=== PATIENT | female | born 1935 | race Caucasian/White ===

== ENCOUNTER 2017-08-04 16:42 | Inpatient (IN) | payer OTHER, MEDICARE ==
[~2017-08-04] VITALS: Ht 162.6 cm; Wt 43.6 kg
[~2017-08-04 16:42] MED LIST: HALO5 PO; HALO50P IM
[2017-08-04 17:35] VITALS: BP 127/69; PULSE 100; RESP 24; TEMP 98.5; O2SAT 96
[2017-08-04 18:38] LABS: AUTOMATED NEUTROPHIL # 7.3 TH/MM3 (1.8-7.7); BASOPHIL % 0.5 % (0.0-2.0); EOSINOPHIL # 0.1 TH/MM3 (0-0.4); EOSINOPHIL % 0.9 % (0.0-4.0); HEMOGLOBIN 13.9 GM/DL (11.6-15.3); LYMPH % 15.1 % (9.0-44.0); LYMPHOCYTE # 1.4 TH/MM3 (1.0-4.8); MEAN CELL VOLUME 94.5 FL (80.0-100.0); MEAN CORPUSCULAR HEMOGLOBIN 31.3 PG (27.0-34.0); MEAN CORPUSCULAR HGB CONC 33.1 % (32.0-36.0); MEAN PLATELET VOLUME 8.5 FL (7.0-11.0); MONO % 4.6 % (0.0-8.0); MONOCYTE # 0.4 TH/MM3 (0-0.9); NEUT % 78.9 % (16.0-70.0); PLATELET COUNT 363 TH/MM3 (150-450); RED BLOOD COUNT 4.45 MIL/MM3 (4.00-5.30); RED CELL DISTRIBUTION WIDTH 13.5 % (11.6-17.2); WHITE BLOOD COUNT 9.2 TH/MM3 (4.0-11.0)
--- NOTE | 2017-08-04 18:53 | PD ---
HPI Chief Complaint: Medical Clearance Time Seen by Provider: 17:38 Travel History International Travel<30 days: No Contact w/Intl Traveler<30days: No Traveled to known affect area: No History of Present Illness HPI 82-year-old female presents as ExPARTE. According to the report she refuses to take her medication and refuses to continue therapy. He also states that she is very angry with her members filling of the report., I am assuming with her . She refuses any medical attention and gets worse every day. She does not take care of herself and will often urinate on the floor. She has no other close family members and has had many psychiatric hospitalizations. She also throws various items around in the kitchen is a disaster. On my examination the patient is alert and oriented. She is cachectic appearing and disheveled. She is hard to understand because she has no teeth. She said she does not want to eat anymore or take care of herself because she just wants to give up. She says "he" does not do anything or cook or help. I am assuming she is talking about her . Denies being suicidal. Apparently she has history of schizophrenia. She is supposed be taking medications and will not take them. The patient denies being in any type of pain. Onset unknown. Duration chronic. Symptoms are moderate to severe in severity. No known relieving or aggravating factors. No known allergies. Unknown past medical history. No other modifying factors or associated signs and symptoms. PFSH Past Medical History Arthritis: No Asthma: No Autoimmune Disease: No Blood Disorders: No Bipolar Disorder: Yes Anxiety: Yes Heart Rhythm Problems: No Cancer: No Cardiovascular Problems: No High Cholesterol: Yes Chemotherapy: No Chest Pain: No Congestive Heart Failure: No COPD: No Cerebrovascular Accident: No Diminished Hearing: No GERD: No Glaucoma: No Headaches: No Hepatitis: No Hiatal Hernia: No Hypertension: Yes (TAKES NO HTN MEDS) Implanted Vascular Access Dvce: No Kidney Stones: No Psychiatric: Yes (Schizoaffective Disorder, Bipolar Disorder, Anxiety) Migraines: No Myocardial Infarction: No Radiation Therapy: No Renal Failure: No Schizophrenia: Yes Seizures: No Sickle Cell Disease: No Sleep Apnea: No Thyroid Disease: No Ulcer: No PNEUMOCCOCAL Vaccine (Year): 2 Menopausal: Yes : 4 Para: 3 Miscarriage: 1 : 1 Past Surgical History Abdominal Surgery: No AICD: No Arteriovenous Shunt: No Cardiac Surgery: No Ear Surgery: No Endocrine Surgery: No Eye Surgery: No Genitourinary Surgery: No Gynecologic Surgery: No Insulin Pump: No Joint Replacement: No Neurologic Surgery: No Oral Surgery: No Pacemaker: No Thoracic Surgery: No Other Surgery: No Social History Alcohol Use: No Tobacco Use: Yes (2 PKS/DAY) Substance Use: No Allergies-Medications (Allergen,Severity, Reaction): Coded Allergies: No Known Allergies (Verified , 02/06/15) Reported Meds & Prescriptions Reported Meds & Active Scripts Active Haldol (Decanoate) 50 mg Ampule (Haloperidol Decanoate) 50 Mg/Ml Inj 200 Mg IM ONCE Next dose of Haldol Decanoate due on 03/15/2015. Haldol (Haloperidol) 5 Mg Tab 7.5 Mg PO BID 30 Days Continue taking oral Haldol until instructed otherwise by your outpatient mental health provider. Review of Systems Except as stated in HPI: all other systems reviewed are Neg Physical Exam Narrative GENERAL: Thin, disheveled, cachectic appearing elderly female patient , in no acute distress SKIN: Warm and dry. HEAD: Atraumatic. Normocephalic. EYES: Pupils equal and round. ENT: Mucosa pink and moist. NECK: Supple. Trachea midline. CARDIOVASCULAR: Regular rate and rhythm. No murmur appreciated. RESPIRATORY: No accessory muscle use. Clear to auscultation. Breath sounds equal bilaterally. GASTROINTESTINAL: Abdomen soft, non-tender, nondistended. Hepatic and splenic margins not palpable. Bowel sounds are active 4 quadrants. MUSCULOSKELETAL: No obvious deformities. No clubbing. No cyanosis. No edema. NEUROLOGICAL: Awake and alert. Oriented 3. No obvious cranial nerve deficits. Motor grossly within normal limits. Normal speech. Moves all extremities. 5/5 strength to all extremities. PSYCHIATRIC: No delusional thought processes. No hallucinations. Data Data Last Documented VS Vital Signs Date Time Temp Pulse Resp B/P (MAP) Pulse Ox O2 Delivery O2 Flow Rate FiO2 08/04/17 17:35 98.5 100 24 127/69 (88) 96 Orders Orders Complete Blood Count With Diff (08/04/17 16:54) Comprehensive Metabolic Panel (08/04/17 16:54) Thyroid Stimulating Hormone (08/04/17 16:54) Urinalysis - C+S If Indicated (08/04/17 16:54) Psych Screen (08/04/17 16:54) Drug Screen, Random Urine (08/04/17 16:54) Alcohol (Ethanol) (08/04/17 16:54) Salicylates (Aspirin) (08/04/17 16:54) Tylenol (Acetaminophen) (08/04/17 16:54) Labs Laboratory Tests Test 08/04/17 18:15 White Blood Count 9.2 TH/MM3 Red Blood Count 4.45 MIL/MM3 Hemoglobin 13.9 GM/DL Hematocrit 42.0 % Mean Corpuscular Volume 94.5 FL Mean Corpuscular Hemoglobin 31.3 PG Mean Corpuscular Hemoglobin Concent 33.1 % Red Cell Distribution Width 13.5 % Platelet Count 363 TH/MM3 Mean Platelet Volume 8.5 FL Neutrophils (%) (Auto) 78.9 % Lymphocytes (%) (Auto) 15.1 % Monocytes (%) (Auto) 4.6 % Eosinophils (%) (Auto) 0.9 % Basophils (%) (Auto) 0.5 % Neutrophils # (Auto) 7.3 TH/MM3 Lymphocytes # (Auto) 1.4 TH/MM3 Monocytes # (Auto) 0.4 TH/MM3 Eosinophils # (Auto) 0.1 TH/MM3 Basophils # (Auto) 0.0 TH/MM3 CBC Comment DIFF FINAL Differential Comment MDM Medical Decision Making Medical Screen Exam Complete: Yes Emergency Medical Condition: Yes Medical Record Reviewed: Yes Differential Diagnosis Failure to thrive, schizoaffective disorder, medical clearance for psychiatric evaluation Narrative Course Patient presents under EXPARTE. Physical examination and vital signs are essentially unremarkable. Patient has no medical complaints to report. Psych screen has been ordered. If the laboratory results are unremarkable, the patient will be medically cleared for psychiatric evaluation and disposition. Diagnosis Primary Impression: Medical clearance for psychiatric admission Additional Impression: Cachexia Condition: Stable Georges Chauhankatie Rosa [employer] DRIVER Aug 04, 2017 18:53
[2017-08-04 19:07] LABS: ALBUMIN 3.4 GM/DL (3.4-5.0); ALT (GPT) 33 U/L (10-53); AST (GOT) 45 U/L (15-37); BICARBONATE 25.8 MEQ/L (21.0-32.0); BLOOD UREA NITROGEN 17 MG/DL (7-18); CALCIUM 9.5 MG/DL (8.5-10.1); CHLORIDE 106 MEQ/L (98-107); CREATININE 0.52 MG/DL (0.50-1.00); GLOMERULAR FILTRATION RATE 113 ML/MIN (>89); GLUCOSE,RANDOM 80 MG/DL (74-106); SODIUM (NA) 142 MEQ/L (136-145)
[2017-08-04 19:18] LABS: ACETAMINOPHEN LESS THAN 2.0 MCG/ML (10.0-30.0); ALKALINE PHOSPHATASE 169 U/L (45-117); TOTAL BILIRUBIN ADULT 0.7 MG/DL (0.2-1.0)
--- NOTE | 2017-08-04 22:09 | PD ---
Physical Exam Date Seen by Provider: Aug 04, 2017 Time Seen by Provider: 22:08 Data Data Last Documented VS Vital Signs Date Time Temp Pulse Resp B/P (MAP) Pulse Ox O2 Delivery O2 Flow Rate FiO2 08/04/17 17:35 98.5 100 24 127/69 (88) 96 Orders Orders Complete Blood Count With Diff (08/04/17 16:54) Comprehensive Metabolic Panel (08/04/17 16:54) Thyroid Stimulating Hormone (08/04/17 16:54) Urinalysis - C+S If Indicated (08/04/17 16:54) Psych Screen (08/04/17 16:54) Drug Screen, Random Urine (08/04/17 16:54) Alcohol (Ethanol) (08/04/17 16:54) Salicylates (Aspirin) (08/04/17 16:54) Tylenol (Acetaminophen) (08/04/17 16:54) Olanzapine Inj (Zyprexa Inj) (08/04/17 22:15) Labs Laboratory Tests Test 08/04/17 16:54 08/04/17 18:15 08/05/17 03:20 Blood Urea Nitrogen 17 MG/DL Creatinine 0.52 MG/DL Random Glucose 80 MG/DL Total Protein 7.0 GM/DL Albumin 3.4 GM/DL Calcium Level 9.5 MG/DL Alkaline Phosphatase 169 U/L Aspartate Amino Transf (AST/SGOT) 45 U/L Alanine Aminotransferase (ALT/SGPT) 33 U/L Total Bilirubin 0.7 MG/DL Sodium Level 142 MEQ/L Potassium Level 3.7 MEQ/L Chloride Level 106 MEQ/L Carbon Dioxide Level 25.8 MEQ/L Anion Gap 10 MEQ/L Estimat Glomerular Filtration Rate 113 ML/MIN Thyroid Stimulating Hormone 3rd Gen 2.080 uIU/ML Acetaminophen Level LESS THAN 2.0 MCG/ML Ethyl Alcohol Level LESS THAN 3 MG/DL White Blood Count 9.2 TH/MM3 Red Blood Count 4.45 MIL/MM3 Hemoglobin 13.9 GM/DL Hematocrit 42.0 % Mean Corpuscular Volume 94.5 FL Mean Corpuscular Hemoglobin 31.3 PG Mean Corpuscular Hemoglobin Concent 33.1 % Red Cell Distribution Width 13.5 % Platelet Count 363 TH/MM3 Mean Platelet Volume 8.5 FL Neutrophils (%) (Auto) 78.9 % Lymphocytes (%) (Auto) 15.1 % Monocytes (%) (Auto) 4.6 % Eosinophils (%) (Auto) 0.9 % Basophils (%) (Auto) 0.5 % Neutrophils # (Auto) 7.3 TH/MM3 Lymphocytes # (Auto) 1.4 TH/MM3 Monocytes # (Auto) 0.4 TH/MM3 Eosinophils # (Auto) 0.1 TH/MM3 Basophils # (Auto) 0.0 TH/MM3 CBC Comment DIFF FINAL Differential Comment Salicylates Level LESS THAN 1.7 MG/DL Urine Color LIGHT-YELLOW Urine Turbidity CLEAR Urine pH 7.0 Urine Specific [place] 1.004 Urine Protein NEG mg/dL Urine Glucose (UA) NEG mg/dL Urine Ketones NEG mg/dL Urine Occult Blood NEG Urine Nitrite NEG Urine Bilirubin NEG Urine Urobilinogen LESS THAN 2.0 MG/DL Urine Leukocyte Esterase NEG Urine WBC LESS THAN 1 /hpf Microscopic Urinalysis Comment CULT NOT INDICATED Urine Opiates Screen NEG Urine Barbiturates Screen NEG Urine Amphetamines Screen NEG Urine Benzodiazepines Screen NEG Urine Cocaine Screen NEG Urine Cannabinoids Screen NEG [facility] Medical Record Reviewed: Yes Supervised Visit with MIKAYLA: No Interpretation(s) Laboratory Tests Test 08/04/17 16:54 08/04/17 18:15 Blood Urea Nitrogen 17 MG/DL Creatinine 0.52 MG/DL Random Glucose 80 MG/DL Total Protein 7.0 GM/DL Albumin 3.4 GM/DL Calcium Level 9.5 MG/DL Alkaline Phosphatase 169 U/L Aspartate Amino Transf (AST/SGOT) 45 U/L Alanine Aminotransferase (ALT/SGPT) 33 U/L Total Bilirubin 0.7 MG/DL Sodium Level 142 MEQ/L Potassium Level 3.7 MEQ/L Chloride Level 106 MEQ/L Carbon Dioxide Level 25.8 MEQ/L Anion Gap 10 MEQ/L Estimat Glomerular Filtration Rate 113 ML/MIN Thyroid Stimulating Hormone 3rd Gen 2.080 uIU/ML Acetaminophen Level LESS THAN 2.0 MCG/ML Ethyl Alcohol Level LESS THAN 3 MG/DL White Blood Count 9.2 TH/MM3 Red Blood Count 4.45 MIL/MM3 Hemoglobin 13.9 GM/DL Hematocrit 42.0 % Mean Corpuscular Volume 94.5 FL Mean Corpuscular Hemoglobin 31.3 PG Mean Corpuscular Hemoglobin Concent 33.1 % Red Cell Distribution Width 13.5 % Platelet Count 363 TH/MM3 Mean Platelet Volume 8.5 FL Neutrophils (%) (Auto) 78.9 % Lymphocytes (%) (Auto) 15.1 % Monocytes (%) (Auto) 4.6 % Eosinophils (%) (Auto) 0.9 % Basophils (%) (Auto) 0.5 % Neutrophils # (Auto) 7.3 TH/MM3 Lymphocytes # (Auto) 1.4 TH/MM3 Monocytes # (Auto) 0.4 TH/MM3 Eosinophils # (Auto) 0.1 TH/MM3 Basophils # (Auto) 0.0 TH/MM3 CBC Comment DIFF FINAL Differential Comment Salicylates Level LESS THAN 1.7 MG/DL Differential Diagnosis MDM: High Differential diagnoses: Schizophrenia, schizoaffective disorder, bipolar, anxiety, depression, adjustment reaction, mood disorder NOS, ODD, depressive disorder NOS, dementia, dementia with agitation, psychosis NOS, substance induced mood disorder, DMDD, Asperger syndrome, infection,electrolyte abnormality, malingering. Narrative Course Mental health screening discussed with the patient. Psychiatric screen ordered. The patient here is acutely psychotic and confused. She is singing happy birthday. She has urinated on herself and all over the floor. She is not able to be redirected. The patient is given Zyprexa 10 mg IM. The patient has been medically cleared. This is medical clearance for psychiatric admission Diagnosis Primary Impression: Medical clearance for psychiatric admission Additional Impression: Cachexia Scripts Unable to Obtain Active Prescriptions or Reported Meds Condition: Krystian Toscano Aug 04, 2017 22:09
[2017-08-04] MEDS ORDERED: OLANZapine IM 10 MG VIAL IM ONE (22:15)
[2017-08-05 03:33] LABS: BILIRUBIN, URINE NEG (NEG); BLOOD, URINE NEG (NEG); GLUCOSE,URINE NEG (NEG); KETONE, URINE NEG (NEG); NITRITE,URINE NEG (NEG); URINE COLOR LIGHT-YELLOW (YELLW/STRAW); URINE LEUKOCYTE ESTERASE NEG (NEG)
[2017-08-05 07:36] VITALS: BP 112/60; PULSE 60; RESP 14; O2SAT 100
[2017-08-05] MEDS: NICOTINE 21 MG/24 HR PATCH T-DERMAL SCH (09:15)
[2017-08-05] MEDS ORDERED: LORazepam 2 MG/ML VIAL IM PRN (09:15)
[2017-08-05] MEDS ORDERED: LORazepam 0.5 MG TAB PO PRN (09:15)
[2017-08-05] MEDS ORDERED: MAGNESIUM HYDROXIDE SUSP 30 ML CUP PO PRN (09:15)
[2017-08-05] MEDS ORDERED: ALUMINUM/MAGNESIUM/SIMETH 30 ML CUP PO PRN (09:15)
[2017-08-05 10:19] VITALS: BP 121/56; PULSE 51; RESP 15; O2SAT 100
[2017-08-05 11:15] VITALS: BP 136/64; PULSE 50; RESP 15; TEMP 98.2
--- NOTE | 2017-08-05 13:28 | HHI.HP ---
Provisional Diagnosis Admission Date Aug 05, 2017 at 09:15 [place] I. Schizoaffective disorder, bipolar type [place] II. Deferred Certification of Person's Competence To Provide Express and Informed Consent I have personally examined Edilia Stern , a person being served at [facility] on, Aug 05, 2017 13:13. Express and informed consent means consent voluntarily given in writing, by a competent person, after sufficient explanation and disclosure of the subject matter involved to enable the person to make a knowing and willful decision without any element of force, fraud, deceit, duress, or other form of constraint or coercion. This person is 18 years of age or older, is not now known to be incompetent to consent to treatment with a guardian advocate, and does not have a health care surrogate or proxy currently making medical treatment decisions. I have found this person to be one of the following: [] Competent to provide express and informed consent, as defined above, for voluntary admission to this facility and is competent to provide express and informed consent for treatment. He/she has the consistent capacity to make well reasoned, willful, and knowing decisions concerning his or her medical or mental health treatment. The person fully and consistently understands the purpose of the admission for examination/placement and is fully capable of personally exercising all rights [place] [x] Incompetent to provide express and informed consent to voluntary admission, and this is incompetent to provide express and informed consent to treatment. The person must be transferred to involuntary status and a petition for a guardian advocate filed with the Circuit Court. [] Refusing to provide express and informed consent to voluntary admission but is competent to provide express and informed consent for treatment. The person must be discharged or transferred to involuntary status. Form shall be completed within 24 hours of a person's arrival at the receiving facility and filed in the clinical record of each person: 1. Admitted on a voluntary basis 2. Permitted to provide express and informed consent to his/her own treatment 3. Allowed to transfer from involuntary to voluntary status 4. Prior to permitting a person to consent to his or her own treatment after having been previously found incompetent to consent to treatment. History of Present Illness Capacity: Lacks Capacity HPI The patient is 82-year-old woman, domiciled in [place] with her , mother of 4 kids, with psychiatric history of schizoaffective disorder , multiple psychiatric hospitalizations, she was hospitalized here in [place] in 2015, the documentation was reviewed, who presents as ExPARTE. According to the report she refuses to take her medication and refuses to continue therapy. He also states that she is very angry with her members filling of the report., I am assuming with her . She refuses any medical attention and gets worse every day. She does not take care of herself and will often urinate on the floor. She also throws various items around in the kitchen is a disaster. On my examination the patient is alert and oriented. She is cachectic appearing and disheveled. She is hard to understand because she has no teeth. She said she does not want to eat anymore or take care of herself because she just wants to give up. She says "he" does not do anything or cook or help. I am assuming she is talking about her . In the psychiatric evaluation today the patient is calm, poorly cooperative, selectively mute. The patient reports that she does not know what is the reason she is here. She does say that her is planning to get her out of the house. At times the patient becomes incoherent, very difficult to understand, seems to be kind of disorganized. She denies suicidal enemas ideation, she denies visual and auditory hallucinations. The patient is fully oriented 3. She refuses to talk about her recent psychiatric history, the medication that she is supposed to be taking. I try to get collateral information from her , the phone listed is [phone], nobody is answering. The patient denies the use of alcohol and illegal drugs. Review of Systems Constitutional: DENIES: Diaphoretic episodes, Fatigue, Fever, Weight gain, Weight loss, Chills, Dizziness, Change in appetite, Night Sweats Endocrine: DENIES: Abnorml menstrual pattern, Heat/cold intolerance, Polydipsia , Polyuria, Polyphagia Eyes: DENIES: Blurred vision, Diplopia, Eye inflammation, Eye pain, Vision loss , Photosensitivity, Double Vision Ears, nose, mouth, throat: DENIES: Tinnitus, Hearing loss, Vertigo, Nasal discharge, Oral lesions, Throat pain, Hoarseness, Ear Pain, Running Nose, Epistaxis, Sinus Pain, Toothache, Odynophagia Respiratory: DENIES: Apneas, Cough, Snoring, Wheezing, Hemoptysis, Sputum production, Shortness of breath Cardiovascular: DENIES: Chest pain, Palpitations, Syncope, Dyspnea on Exertion , PND, Lower Extremity Edema, Orthopnea, Claudication Gastrointestinal: DENIES: Abdominal pain, Black stools, Bloody stools, Constipation, Diarrhea, Nausea, Vomiting, Difficulty Swallowing, Anorexia Genitourinary: DENIES: Abnormal vaginal bleeding, Dysmenorrhea, Dyspareunia, Sexual dysfunction, Urinary frequency, Urinary incontinence, Urgency, Hematuria , Dysuria, Nocturia, Vaginal discharge Musculoskeletal: DENIES: Joint pain, Muscle aches, Stiffness, Joint Swelling, Back pain, Neck pain Integumentary: DENIES: Abnormal pigmentation, Pruritus, Rash, Nail changes, Breast masses, Breast skin changes, Nipple discharge Immunologic/allergic: DENIES: Eczema, Urticaria Neurologic: DENIES: Abnormal gait, Headache, Localized weakness, Paresthesias, Seizures, Speech Problems, Tremor, Poor Balance Psychiatric: COMPLAINS OF: Confusion, Delusions, DENIES: Anxiety, Mood changes , Depression, Hallucinations, Agitation, Suicidal Ideation, Homicidal Ideation Substance Abuse History Drugs/Alcohol past 12 months Patient denies substance abuse and alcohol abuse Past Family Social History Coded Allergies: No Known Allergies (Verified Allergy, Unknown, 08/05/17) Unable to Obtain Active Prescriptions or Reported Meds Current Medications Medications (Trade) Dose Ordered Sig/Crystal Route Start Time Stop Time Status Last Admin (Ativan) 1 mg Q6H PRN PO 08/05/17 09:15 (Ativan Inj) 1 mg Q6H PRN IM 08/05/17 09:15 (Ativan) 0.5 mg Q12H PRN PO 08/05/17 09:15 (Ativan Inj) 0.5 mg Q12H PRN IM 08/05/17 09:15 (Tylenol) 650 mg Q4H PRN PO 08/05/17 09:15 (Milk Of Magnesia Liq) 30 ml DAILY PRN PO 08/05/17 09:15 (Mag-Al Plus Susp Liq) 30 ml Q6H PRN PO 08/05/17 09:15 (Habitrol 21 Mg Patch.24 Hr) 1 patch DAILY T-DERMAL 08/05/17 09:15 Miscellaneous Information 1 DAILY T-DERMAL 08/06/17 09:00 Family Psych History No family psychiatric history Social History Patient lives with her in [place], she has 4 kids, she is college educated, retired, supported by social Patient's Strengths (min. 2) Family support Physical Exam Patient is hypoactive, poorly cooperative, but no tremors, no EPS. Vital Signs Vital Signs Date Time Temp Pulse Resp B/P (MAP) Pulse Ox O2 Delivery O2 Flow Rate FiO2 08/05/17 10:29 08/05/17 10:19 51 15 100 Room Air 08/04/17 17:35 98.5 Lab Results Test 08/04/17 16:54 08/04/17 18:15 08/05/17 03:20 Blood Urea Nitrogen 17 MG/DL Creatinine 0.52 MG/DL Random Glucose 80 MG/DL Total Protein 7.0 GM/DL Albumin 3.4 GM/DL Calcium Level 9.5 MG/DL Alkaline Phosphatase 169 U/L Aspartate Amino Transf (AST/SGOT) 45 U/L Alanine Aminotransferase (ALT/SGPT) 33 U/L Total Bilirubin 0.7 MG/DL Sodium Level 142 MEQ/L Potassium Level 3.7 MEQ/L Chloride Level 106 MEQ/L Carbon Dioxide Level 25.8 MEQ/L Anion Gap 10 MEQ/L Estimat Glomerular Filtration Rate 113 ML/MIN Thyroid Stimulating Hormone 3rd Gen 2.080 uIU/ML Acetaminophen Level LESS THAN 2.0 MCG/ML Ethyl Alcohol Level LESS THAN 3 MG/DL White Blood Count 9.2 TH/MM3 Red Blood Count 4.45 MIL/MM3 Hemoglobin 13.9 GM/DL Hematocrit 42.0 % Mean Corpuscular Volume 94.5 FL Mean Corpuscular Hemoglobin 31.3 PG Mean Corpuscular Hemoglobin Concent 33.1 % Red Cell Distribution Width 13.5 % Platelet Count 363 TH/MM3 Mean Platelet Volume 8.5 FL Neutrophils (%) (Auto) 78.9 % Lymphocytes (%) (Auto) 15.1 % Monocytes (%) (Auto) 4.6 % Eosinophils (%) (Auto) 0.9 % Basophils (%) (Auto) 0.5 % Neutrophils # (Auto) 7.3 TH/MM3 Lymphocytes # (Auto) 1.4 TH/MM3 Monocytes # (Auto) 0.4 TH/MM3 Eosinophils # (Auto) 0.1 TH/MM3 Basophils # (Auto) 0.0 TH/MM3 CBC Comment DIFF FINAL Differential Comment Salicylates Level LESS THAN 1.7 MG/DL Urine Color LIGHT-YELLOW Urine Turbidity CLEAR Urine pH 7.0 Urine Specific [place] 1.004 Urine Protein NEG mg/dL Urine Glucose (UA) NEG mg/dL Urine Ketones NEG mg/dL Urine Occult Blood NEG Urine Nitrite NEG Urine Bilirubin NEG Urine Urobilinogen LESS THAN 2.0 MG/DL Urine Leukocyte Esterase NEG Urine WBC LESS THAN 1 /hpf Microscopic Urinalysis Comment CULT NOT INDICATED Urine Opiates Screen NEG Urine Barbiturates Screen NEG Urine Amphetamines Screen NEG Urine Benzodiazepines Screen NEG Urine Cocaine Screen NEG Urine Cannabinoids Screen NEG Mental Status Examination Appearance: Dirty, Disheveled Consciousness: Somnolent, Clouded Motor Activity: Abnormal gait Speech: Incoherent Language: Adequate Fund of Knowledge: Inadequate Attention and Concentration: Adequate Memory: Unremarkable Mood: Angry, Oppositional Affect: Irritable Thought Process & Associations: Loose associations Thought Content: Bizarre thinking, Delusional Hallucination Type: None Delusion Type: None Suicidal Ideation: No Suicidal Plan: No Suicidal Intention: No Homicidal Ideation: No Homicidal Plan: No Homicidal Intention: No Insight: Poor Judgment: Poor Assessment & Plan Problem List: (1) Schizoaffective disorder ICD Codes: F25.9 - Schizoaffective disorder, unspecified Status: Acute Assessment & Plan: On psychiatric evaluation today the patient is selectively mute, poorly cooperative, unable to provide meaningful information to complete the psychiatric assessment. She refused to talk about her recent psychiatric medications and hospitalizations. He does deny suicidal ideation, homicidal ideation, visual and auditory hallucinations. She is fully oriented 3. As per ex Parte documentation the patient has been refusing care at home, self neglecting, no taking her medications, losing weight, not even taking showers. Collateral information could not be contacted at this moment. Given her history of schizoaffective disorder and schizophrenia, multiple psychiatric hospitalizations in the past and history of becoming decompensated without medications, the has an elevated risk of danger to self and potentially be psychotic and she needs psychiatric hospitalization for stabilization and safety. Collateral information is crucial to complete psychiatric assessment. Hold psychotropics at this moment. We will try to reconciliate her medical and psychiatric medications with her . property worker intervention for collateral information, individual and group therapies, to coordinate safe discharge. Will consult psychiatry for second opinion, hospitalist to help with underlying medical conditions. CBC, CMP, urine and toxicology are within the normal limits. Assessment & Plan Estimated LOS: Corey Padron MD Aug 05, 2017 13:28
--- NOTE | 2017-08-05 19:48 | PD.CONS ---
[facility] Consult Requested By Dr. Banks Reason for Consult Medical Management Primary Care Physician Unknown Diagnoses: History of Present Illness This is an 82-year-old female with past medical history of hypertension, elevated ammonia levels, history of a schizoaffective disorder, with multiple prior psychiatric hospitalizations. The patient was presented as an ExPARTE. According to the report the patient refuses to take her medications and refuses to continue therapy. She states that she is very angry with the members of her family providing of the report. As per records the patient does not take care of herself and will often unit on the floor. It is also noted the patient throws Leugn's items around in the kitchen. Denies suicidal ideation, denies visual or auditory hallucinations. Review of Systems As per HPI, other systems reviewed by me and negative. Past Family Social History Allergies: Coded Allergies: No Known Allergies (Verified Allergy, Unknown, 08/05/17) Past Medical History 1. Hypertension. 2. UTI. 3. Nonspecific hyperammonemia. Past Surgical History Unobtainable Reported Medications Reported Meds & Active Scripts Active Active Prescriptions or Reported Medications Unobtainable Active Ordered Medications Current Medications Medications (Trade) Dose Ordered Sig/Crystal Route Start Time Stop Time Status Last Admin (Ativan) 1 mg Q6H PRN PO 08/05/17 09:15 (Ativan Inj) 1 mg Q6H PRN IM 08/05/17 09:15 (Ativan) 0.5 mg Q12H PRN PO 08/05/17 09:15 (Ativan Inj) 0.5 mg Q12H PRN IM 08/05/17 09:15 (Tylenol) 650 mg Q4H PRN PO 08/05/17 09:15 (Milk Of Magnesia Liq) 30 ml DAILY PRN PO 08/05/17 09:15 (Mag-Al Plus Susp Liq) 30 ml Q6H PRN PO 08/05/17 09:15 (Habitrol 21 Mg Patch.24 Hr) 1 patch DAILY T-DERMAL 08/05/17 09:15 Miscellaneous Information 1 DAILY T-DERMAL 08/06/17 09:00 Family History Discussed with the patient and I related to the current presentation. Social History Per PMR, smokes 2 packs a day, patient denies alcohol use. Physical Exam Vital Signs Vital Signs Date Time Temp Pulse Resp B/P (MAP) Pulse Ox O2 Delivery O2 Flow Rate FiO2 08/05/17 11:15 98.2 50 15 136/64 (88) 08/05/17 10:29 08/05/17 10:19 51 15 121/56 (77) 100 Room Air 08/05/17 07:36 60 14 112/60 (77) 100 Room Air Physical Exam GENERAL: This is a well-nourished, well-developed patient, in no apparent distress. SKIN: No rashes, ecchymoses or lesions. Cool and dry. HEAD: Atraumatic. Normocephalic. No temporal or scalp tenderness. EYES: Pupils equal round and reactive. Extraocular motions intact. No scleral icterus. No injection or drainage. ENT: Nose without bleeding, purulent drainage or septal hematoma. Throat without erythema, tonsillar hypertrophy or exudate. Uvula midline. Airway patent. NECK: Trachea midline. No JVD or lymphadenopathy. Supple, nontender, no meningeal signs. CARDIOVASCULAR: Regular rate and rhythm without murmurs, gallops, or rubs. RESPIRATORY: Clear to auscultation. Breath sounds equal bilaterally. No wheezes , rales, or rhonchi. GASTROINTESTINAL: Abdomen soft, non-tender, nondistended. No hepato-splenomegaly , or palpable masses. No guarding. MUSCULOSKELETAL: Extremities without clubbing, cyanosis, or edema. No joint tenderness, effusion, or edema noted. No calf tenderness. Negative Homans sign bilaterally. NEUROLOGICAL: Awake and alert. Cranial nerves II through XII intact. Motor and sensory grossly within normal limits. Five out of 5 muscle strength in all muscle groups. Normal speech. Laboratory Laboratory Tests Test 08/05/17 03:20 Urine Color LIGHT-YELLOW Urine Turbidity CLEAR Urine pH 7.0 Urine Specific [place] 1.004 Urine Protein NEG Urine Glucose (UA) NEG Urine Ketones NEG Urine Occult Blood NEG Urine Nitrite NEG Urine Bilirubin NEG Urine Urobilinogen LESS THAN 2.0 Urine Leukocyte Esterase NEG Urine WBC LESS THAN 1 Microscopic Urinalysis Comment CULT NOT INDICATED Urine Opiates Screen NEG Urine Barbiturates Screen NEG Urine Amphetamines Screen NEG Urine Benzodiazepines Screen NEG Urine Cocaine Screen NEG Urine Cannabinoids Screen NEG Result Diagram: 08/04/17 1710 08/04/17 1875 Assessment and Plan Problem List: (1) Chronic schizoaffective disorder with acute exacerbation ICD Code: F25.8 - Other schizoaffective disorders Status: Acute Plan: Management as per psychiatry. (2) Hyperammonemia ICD Code: E72.20 - Disorder of urea cycle metabolism, unspecified Status: Acute Plan: Recheck ammonia level. (3) Hypertension ICD Code: I10 - Essential (primary) hypertension Status: Chronic Plan: BP stable off antihypertensive medications. Continue to monitor trend. Assessment and Plan DVT prophylaxis: SCDs. Problem Qualifiers (1) Hypertension: Qualified Codes: I10 - Essential (primary) hypertension Mane Crenshaw MD Aug 05, 2017 19:48
[2017-08-06 06:32] VITALS: BP 152/68; PULSE 69; RESP 18; TEMP 97.8; O2SAT 92
[2017-08-06 07:32] LABS: CHOLESTEROL 159 MG/DL (120-200); TRIGLYCERIDES 72 MG/DL (42-150)
[2017-08-06 07:35] LABS: CHOLESTEROL/ HDL RATIO 2.12 RATIO; HDL CHOLESTEROL 74.8 MG/DL (40.0-60.0); LDL CHOLESTEROL 70 MG/DL (0-99)
[2017-08-06 07:43] LABS: BICARBONATE 26.8 MEQ/L (21.0-32.0); BLOOD UREA NITROGEN 21 MG/DL (7-18); CALCIUM 8.8 MG/DL (8.5-10.1); CHLORIDE 109 MEQ/L (98-107); CREATININE 0.54 MG/DL (0.50-1.00); GLOMERULAR FILTRATION RATE 108 ML/MIN (>89); GLUCOSE,RANDOM 69 MG/DL (74-106); SODIUM (NA) 145 MEQ/L (136-145)
[2017-08-06] MEDS: NICOTINE 21 MG/24 HR PATCH T-DERMAL SCH (09:00)
[2017-08-06] MEDS: REMOVE OLD PATCH T-DERMAL SCH (09:00)
[2017-08-06 09:43] VITALS: PULSE 83; O2SAT 97
--- NOTE | 2017-08-06 10:05 | HHI.PR ---
Subjective Remarks This is an 82-year-old female with past medical history of hypertension, elevated ammonia levels, history of a schizoaffective disorder, with multiple prior psychiatric hospitalizations. The patient was presented as an ExPARTE. According to the report the patient refuses to take her medications and refuses to continue therapy. She states that she is very angry with the members of her family providing of the report. As per records the patient does not take care of herself and will often urinate on the floor. It is also noted the patient throws multiple items around in the kitchen. Denies suicidal ideation, denies visual or auditory hallucinations. 08-06 seen in her bed Denies any new complaints Discussed with RN and patient Knew she was at [place] Stated she was at [place] She knew that the year was 2007 Objective Vitals Vital Signs Date Time Temp Pulse Resp B/P (MAP) Pulse Ox O2 Delivery O2 Flow Rate FiO2 08/06/17 09:43 83 97 08/06/17 06:32 97.8 69 18 152/68 (96) 92 08/05/17 11:15 98.2 50 15 136/64 (88) 08/05/17 10:29 08/05/17 10:19 51 15 121/56 (77) 100 Room Air I/O 08/05/17 08/05/17 08/05/17 08/06/17 08/06/17 08/06/17 07:00 15:00 23:00 07:00 15:00 23:00 Intake Total 450 ml 360 ml Balance 450 ml 360 ml Intake Oral 250 ml 360 ml Tube Feeding 200 ml # Voids 1 1 1 Result Diagram: 08/04/17 1815 08/06/17 0602 Other Results Laboratory Tests Test 08/04/17 16:54 08/04/17 18:15 08/05/17 03:20 08/05/17 20:39 Blood Urea Nitrogen 17 MG/DL Creatinine 0.52 MG/DL Random Glucose 80 MG/DL Total Protein 7.0 GM/DL Albumin 3.4 GM/DL Calcium Level 9.5 MG/DL Alkaline Phosphatase 169 U/L Aspartate Amino Transf (AST/SGOT) 45 U/L Alanine Aminotransferase (ALT/SGPT) 33 U/L Total Bilirubin 0.7 MG/DL Sodium Level 142 MEQ/L Potassium Level 3.7 MEQ/L Chloride Level 106 MEQ/L Carbon Dioxide Level 25.8 MEQ/L Anion Gap 10 MEQ/L Estimat Glomerular Filtration Rate 113 ML/MIN Thyroid Stimulating Hormone 3rd Gen 2.080 uIU/ML Acetaminophen Level LESS THAN 2.0 MCG/ML Ethyl Alcohol Level LESS THAN 3 MG/DL White Blood Count 9.2 TH/MM3 Red Blood Count 4.45 MIL/MM3 Hemoglobin 13.9 GM/DL Hematocrit 42.0 % Mean Corpuscular Volume 94.5 FL Mean Corpuscular Hemoglobin 31.3 PG Mean Corpuscular Hemoglobin Concent 33.1 % Red Cell Distribution Width 13.5 % Platelet Count 363 TH/MM3 Mean Platelet Volume 8.5 FL Neutrophils (%) (Auto) 78.9 % Lymphocytes (%) (Auto) 15.1 % Monocytes (%) (Auto) 4.6 % Eosinophils (%) (Auto) 0.9 % Basophils (%) (Auto) 0.5 % Neutrophils # (Auto) 7.3 TH/MM3 Lymphocytes # (Auto) 1.4 TH/MM3 Monocytes # (Auto) 0.4 TH/MM3 Eosinophils # (Auto) 0.1 TH/MM3 Basophils # (Auto) 0.0 TH/MM3 CBC Comment DIFF FINAL Differential Comment Salicylates Level LESS THAN 1.7 MG/DL Urine Color LIGHT-YELLOW Urine Turbidity CLEAR Urine pH 7.0 Urine Specific [place] 1.004 Urine Protein NEG mg/dL Urine Glucose (UA) NEG mg/dL Urine Ketones NEG mg/dL Urine Occult Blood NEG Urine Nitrite NEG Urine Bilirubin NEG Urine Urobilinogen LESS THAN 2.0 MG/DL Urine Leukocyte Esterase NEG Urine WBC LESS THAN 1 /hpf Microscopic Urinalysis Comment CULT NOT INDICATED Urine Opiates Screen NEG Urine Barbiturates Screen NEG Urine Amphetamines Screen NEG Urine Benzodiazepines Screen NEG Urine Cocaine Screen NEG Urine Cannabinoids Screen NEG Ammonia 25 MCMOL/L Test 08/06/17 06:02 Blood Urea Nitrogen 21 MG/DL Creatinine 0.54 MG/DL Random Glucose 69 MG/DL Calcium Level 8.8 MG/DL Sodium Level 145 MEQ/L Potassium Level 3.8 MEQ/L Chloride Level 109 MEQ/L Carbon Dioxide Level 26.8 MEQ/L Anion Gap 9 MEQ/L Estimat Glomerular Filtration Rate 108 ML/MIN Triglycerides Level 72 MG/DL Cholesterol Level 159 MG/DL LDL Cholesterol 70 MG/DL HDL Cholesterol 74.8 MG/DL Cholesterol/HDL Ratio 2.12 RATIO Objective Remarks GENERAL: Awake and alert talkative and cooperative poor dentition SKIN: Warm and dry. HEAD: Atraumatic. Normocephalic. EYES: Pupils equal and round. No scleral icterus. No injection or drainage. ENT: No nasal bleeding or discharge. Mucous membranes pink and moist. Very poor dentition tongue is midline NECK: Trachea midline. No JVD. Supple CARDIOVASCULAR: Regular rate and rhythm. S1-S2 no S3 or S4 no heave or thrill or rub or gallop RESPIRATORY: No accessory muscle use. Clear to auscultation. Breath sounds equal bilaterally. GASTROINTESTINAL: Abdomen soft, non-tender, nondistended. Hepatic and splenic margins not palpable. MUSCULOSKELETAL: Extremities without clubbing, cyanosis, or edema. No obvious deformities. Discolored toes bilaterally on both feet NEUROLOGICAL: Awake and alert. No obvious cranial nerve deficits. Motor grossly within normal limits. 4 out of 5 muscle strength in the arms and legs. Normal speech. PSYCHIATRIC: INAppropriate mood and affect; insight and judgment ABnormal. Procedures NONE Medications and IVs Current Medications Olanzapine (ZyPREXA INJ) 10 mg ONCE ONCE IM Last administered on 08/04/17at 22: 29; Start 08/04/17 at 22:15; Stop 08/04/17 at 22:16; Status DC Lorazepam (Ativan) 1 mg Q6H PRN PO MODERATE TO SEVERE ANXIETY; Start 08/05/17 at 09:15 Lorazepam (Ativan Inj) 1 mg Q6H PRN IM MODERATE TO SEVERE ANXIETY; Start at 09:15 Lorazepam (Ativan) 0.5 mg Q12H PRN PO MODERATE TO SEVERE ANXIETY; Start at 09:15 Lorazepam (Ativan Inj) 0.5 mg Q12H PRN IM MODERATE TO SEVERE ANXIETY; Start at 09:15 Acetaminophen (Tylenol) 650 mg Q4H PRN PO Pain 1-5 or Temp >101F; Start at 09:15 Magnesium Hydroxide (Milk Of Magnesia Liq) 30 ml DAILY PRN PO CONSTIPATION; Start 08/05/17 at 09:15 Al Hydrox/Mg Hydrox/Simethicone (Mag-Al Plus Susp Liq) 30 ml Q6H PRN PO DYSPEPSIA; Start 08/05/17 at 09:15 Nicotine (Habitrol 21 Mg Patch.24 Hr) 1 patch DAILY T-DERMAL ; Start 08/05/17 at 09:15 Miscellaneous Information 1 DAILY T-DERMAL ; Start 08/06/17 at 09:00 A/P Problem List: (1) Chronic schizoaffective disorder with acute exacerbation ICD Code: F25.8 - Other schizoaffective disorders Status: Acute Plan: Management as per psychiatry. (2) Hyperammonemia ICD Code: E72.20 - Disorder of urea cycle metabolism, unspecified Status: Acute Plan: Recheck ammonia level. (3) Hypertension ICD Code: I10 - Essential (primary) hypertension Status: Chronic Plan: BP stable off antihypertensive medications. Continue to monitor trend. Assessment and Plan History of urinary tract infection-- stable at this time--no signs of urinary tract infection Hypertension monitor blood pressure meds as needed with as needed Catapres Recheck ammonia level Discharge Planning Pending psychiatric clearance Problem Qualifiers (1) Hypertension: Qualified Codes: I10 - Essential (primary) hypertension Albert Davis DO Aug 06, 2017 10:05
[2017-08-06 15:43] LABS: HEMOGLOBIN A1C 5.2 % (4.3-6.0)
--- NOTE | 2017-08-06 17:22 | PD.PSY.CON ---
Provisional Diagnosis Admission Date Aug 05, 2017 at 09:15 [place] I. Schizoaffective disorder, bipolar type [place] II. Deferred History of Present Illness Service Psychiatry Consult Requested By Dr. Banks Reason for Consult Second opinion Primary Care Physician Unknown HPI The patient is 82-year-old woman, domiciled in [place] with her , mother of 4 kids, with psychiatric history of schizoaffective disorder , multiple psychiatric hospitalizations, she was hospitalized here in [place] in 2014, the documentation was reviewed, who presents as ExPARTE. According to the report she refuses to take her medication and refuses to continue therapy. He also states that she is very angry with her members filling of the report., I am assuming with her . She refuses any medical attention and gets worse every day. She does not take care of herself and will often urinate on the floor. She also throws various items around in the kitchen is a disaster. On my examination the patient is alert and oriented. She is cachectic appearing and disheveled. She is hard to understand because she has no teeth. She said she does not want to eat anymore or take care of herself because she just wants to give up. She says "he" does not do anything or cook or help. I am assuming she is talking about her . In the psychiatric evaluation today the patient is calm, poorly cooperative, selectively mute. The patient reports that she does not know what is the reason she is here. She does say that her is planning to get her out of the house. At times the patient becomes incoherent, very difficult to understand, seems to be kind of disorganized. She denies suicidal enemas ideation, she denies visual and auditory hallucinations. The patient is fully oriented 3. She refuses to talk about her recent psychiatric history, the medication that she is supposed to be taking. I try to get collateral information from her , the phone listed is [phone], nobody is answering. The patient denies the use of alcohol and illegal drugs. 08/06/17 -second opinion Patient is an 82-year-old woman, domiciled with , has 4 children, with a past psychiatric history of schizoaffective disorder, previous psychiatric admissions, last seen here at [place] in 2014 was brought into the ED under ex parte due to concerns of self neglect,, refusing medical attention, decreased nutritional intake and wanting to give up which patient was admitted to the patient psychiatry for further evaluation and management. Patient was noted to be superficially cooperative, and become irritable during interview as well. Patient is alert and oriented 3. Patient states that she had recent arguments with her stated that he did not get along and reported that she did not want to return back to him. When attempted to pass further upon her living situation, regarding her self neglect she was unable to provide adequate comprehensible responses noted to be tangential, loosely associations and disorganized during interview. When speaking about prior treatment and medications patient at it mother was refusing any medication stating that she does not need them. Collateral information obtained by a counselor/therapist from had reported that patient had not been eating well, had been refusing medications for years and states that he does not want her to return back to the home. When asked about how they were obtaining her meals patient's was noted to be circumstantial and not providing adequate information as to their current living situation which concerns of their ability to care for themselves is concerning. Treatment he will contact DCFS to investigate into the ability of patient and to care for themselves. Past Family Social History Coded Allergies: No Known Allergies (Verified Allergy, Unknown, 08/05/17) Unable to Obtain Active Prescriptions or Reported Meds Current Medications Medications (Trade) Dose Ordered Sig/Crystal Route Start Time Stop Time Status Last Admin (Ativan) 1 mg Q6H PRN PO 08/05/17 09:15 (Ativan Inj) 1 mg Q6H PRN IM 08/05/17 09:15 (Ativan) 0.5 mg Q12H PRN PO 08/05/17 09:15 (Ativan Inj) 0.5 mg Q12H PRN IM 08/05/17 09:15 (Tylenol) 650 mg Q4H PRN PO 08/05/17 09:15 (Milk Of Magnesia Liq) 30 ml DAILY PRN PO 08/05/17 09:15 (Mag-Al Plus Susp Liq) 30 ml Q6H PRN PO 08/05/17 09:15 (Habitrol 21 Mg Patch.24 Hr) 1 patch DAILY T-DERMAL 08/05/17 09:15 Miscellaneous Information 1 DAILY T-DERMAL 4/27/18 09:00 Patient's Strengths (min. 2) Family support Physical Exam Vital Signs Vital Signs Date Time Temp Pulse Resp B/P (MAP) Pulse Ox O2 Delivery O2 Flow Rate FiO2 08/06/17 09:43 83 97 08/06/17 06:32 97.8 18 08/05/17 10:19 Room Air I/O 08/06/17 08/06/17 08/07/17 08:00 16:00 00:00 Intake Total 720 ml Balance 720 ml Lab Results Test 08/05/17 20:39 08/06/17 06:02 Ammonia 25 MCMOL/L Blood Urea Nitrogen 21 MG/DL Creatinine 0.54 MG/DL Random Glucose 69 MG/DL Calcium Level 8.8 MG/DL Sodium Level 145 MEQ/L Potassium Level 3.8 MEQ/L Chloride Level 109 MEQ/L Carbon Dioxide Level 26.8 MEQ/L Anion Gap 9 MEQ/L Estimat Glomerular Filtration Rate 108 ML/MIN Hemoglobin A1c 5.2 % Triglycerides Level 72 MG/DL Cholesterol Level 159 MG/DL LDL Cholesterol 70 MG/DL HDL Cholesterol 74.8 MG/DL Cholesterol/HDL Ratio 2.12 RATIO Mental Status Examination Appearance: Dirty, Disheveled Consciousness: Somnolent, Clouded Motor Activity: Abnormal gait Speech: Incoherent Language: Adequate Fund of Knowledge: Inadequate Attention and Concentration: Adequate Memory: Unremarkable Mood: Angry, Oppositional Affect: Irritable Thought Process & Associations: Loose associations, Disorganized Thought Content: Bizarre thinking, Delusional Hallucination Type: None Delusion Type: None Suicidal Ideation: No Suicidal Plan: No Suicidal Intention: No Homicidal Ideation: No Homicidal Plan: No Homicidal Intention: No Insight: Poor Judgment: Poor Assessment & Plan Problem List: (1) Schizoaffective disorder ICD Codes: F25.9 - Schizoaffective disorder, unspecified Status: Acute Assessment & Plan I have seen and examined this patient, reviewed the documentation, discussed personally with Dr. Banks, and I agree and concur with his assessment and plan. Consult appreciated. Patient this time refusing to comply with medications and will require healthcare surrogate and guardian advocate for consent to treatment. Patient at this time disorganized, religiously preoccupied at times referring to the devil, and will require psychiatric stabilization. Due to concerns of patient' s to be in adequate healthcare surrogate in light of patient's current physical appearance and condition we will defer to having patient's children be healthcare surrogate if they are able to be contacted. We will continue to monitor mood and behavior. We will order PT, OT, dietitian and speech consult for evaluation. Hospitalist consult pending. Discharge planning in progress. Discharge Planning To be determined. Arslan Moreno MD Aug 06, 2017 17:21
[2017-08-06 17:50] VITALS: BP 125/58; PULSE 64; RESP 16; TEMP 97.7; O2SAT 98
[2017-08-07 05:59] VITALS: BP 169/77; PULSE 78; RESP 17; TEMP 97.4; O2SAT 96
[2017-08-07] MEDS ORDERED: cloNIDine HCL 0.1 MG TAB PO PRN (09:00)
[2017-08-07] MEDS: NICOTINE 21 MG/24 HR PATCH T-DERMAL SCH (09:12)
[2017-08-07] MEDS: REMOVE OLD PATCH T-DERMAL SCH (09:12)
[2017-08-07] MEDS: ACETAMINOPHEN 325 MG TAB PO PRN (09:24)
--- NOTE | 2017-08-07 11:04 | HHI.PYPN ---
Subjective Remarks The patient was seen today for psychiatric reevaluation. The patient is oppositional, irritable, refusing to answer my questions. She is oriented 3. She says that she does not need to be here and she does not need medications. The patient has been consistently refusing medications, she has been delusional and disorganized, yesterday night she was agitated and manic-like, as per nursing report. Review of Systems Except as stated in HPI: all other systems reviewed are Neg Mental Status Examination Appearance: Dirty, Disheveled Consciousness: Somnolent, Clouded Motor Activity: Abnormal gait Speech: Incoherent Language: Adequate Fund of Knowledge: Inadequate Attention and Concentration: Adequate Memory: Unremarkable Mood: Angry, Oppositional Affect: Irritable Thought Process & Associations: Loose associations, Disorganized Thought Content: Bizarre thinking, Delusional Hallucination Type: None Delusion Type: None Suicidal Ideation: No Suicidal Plan: No Suicidal Intention: No Homicidal Ideation: No Homicidal Plan: No Homicidal Intention: No Insight: Poor Judgment: Poor Results Vitals/IOs Vital Signs Date Time Temp Pulse Resp B/P (MAP) Pulse Ox O2 Delivery O2 Flow Rate FiO2 08/07/17 05:59 97.4 78 17 169/77 (107) 96 08/05/17 10:19 Room Air Intake and Output 08/07/17 08/07/17 08/08/17 08:00 16:00 00:00 Intake Total 0 ml 420 ml Balance 0 ml 420 ml Assessment & Plan Problem List: (1) Schizoaffective disorder ICD Codes: F25.9 - Schizoaffective disorder, unspecified Status: Acute Assessment & Plan: We will start Seroquel 12.5 mg twice daily to control agitation and disorganization. Encourage the patient to take her medications Assessment & Plan Estimated LOS: days Justification for Cont. Inpt. Patient is acutely psychotic, she needs to continue psychiatric hospitalization for stabilization. Corey Banks MD Aug 07, 2017 11:04
[2017-08-07] MEDS ORDERED: PILL SPLITTER OTHER PRN (11:15)
--- NOTE | 2017-08-07 11:16 | HHI.PR ---
Subjective Remarks This is an 82-year-old female with past medical history of hypertension, elevated ammonia levels, history of a schizoaffective disorder, with multiple prior psychiatric hospitalizations. The patient was presented as an ExPARTE. According to the report the patient refuses to take her medications and refuses to continue therapy. She states that she is very angry with the members of her family providing of the report. As per records the patient does not take care of herself and will often urinate on the floor. It is also noted the patient throws multiple items around in the kitchen. Denies suicidal ideation, denies visual or auditory hallucinations. 08-06 seen in her bed Denies any new complaints Discussed with RN and patient Knew she was at [place] Stated she was at [place] She knew that the year was 08-07 NO NEW COMPLAINTS DW RN AND PT PASSED SWALLOW VANITA HAS POOR DENTITION Objective Vitals Vital Signs Date Time Temp Pulse Resp B/P (MAP) Pulse Ox O2 Delivery O2 Flow Rate FiO2 08/07/17 05:59 97.4 78 17 169/77 (107) 96 08/06/17 17:50 97.7 64 16 125/58 (80) 98 I/O 08/06/17 08/06/17 08/06/17 08/07/17 08/07/17 08/07/17 07:00 15:00 23:00 07:00 15:00 23:00 Intake Total 720 ml 480 ml 0 ml 420 ml Balance 720 ml 480 ml 0 ml 420 ml Intake Oral 720 ml 480 ml 0 ml 420 ml # Voids 1 0 1 Result Diagram: 08/04/17 1815 08/06/17 0602 Other Results Laboratory Tests Test 08/04/17 16:54 08/04/17 18:15 08/05/17 03:20 08/05/17 20:39 Blood Urea Nitrogen 17 MG/DL Creatinine 0.52 MG/DL Random Glucose 80 MG/DL Total Protein 7.0 GM/DL Albumin 3.4 GM/DL Calcium Level 9.5 MG/DL Alkaline Phosphatase 169 U/L Aspartate Amino Transf (AST/SGOT) 45 U/L Alanine Aminotransferase (ALT/SGPT) 33 U/L Total Bilirubin 0.7 MG/DL Sodium Level 142 MEQ/L Potassium Level 3.7 MEQ/L Chloride Level 106 MEQ/L Carbon Dioxide Level 25.8 MEQ/L Anion Gap 10 MEQ/L Estimat Glomerular Filtration Rate 113 ML/MIN Thyroid Stimulating Hormone 3rd Gen 2.080 uIU/ML Acetaminophen Level LESS THAN 2.0 MCG/ML Ethyl Alcohol Level LESS THAN 3 MG/DL White Blood Count 9.2 TH/MM3 Red Blood Count 4.45 MIL/MM3 Hemoglobin 13.9 GM/DL Hematocrit 42.0 % Mean Corpuscular Volume 94.5 FL Mean Corpuscular Hemoglobin 31.3 PG Mean Corpuscular Hemoglobin Concent 33.1 % Red Cell Distribution Width 13.5 % Platelet Count 363 TH/MM3 Mean Platelet Volume 8.5 FL Neutrophils (%) (Auto) 78.9 % Lymphocytes (%) (Auto) 15.1 % Monocytes (%) (Auto) 4.6 % Eosinophils (%) (Auto) 0.9 % Basophils (%) (Auto) 0.5 % Neutrophils # (Auto) 7.3 TH/MM3 Lymphocytes # (Auto) 1.4 TH/MM3 Monocytes # (Auto) 0.4 TH/MM3 Eosinophils # (Auto) 0.1 TH/MM3 Basophils # (Auto) 0.0 TH/MM3 CBC Comment DIFF FINAL Differential Comment Salicylates Level LESS THAN 1.7 MG/DL Urine Color LIGHT-YELLOW Urine Turbidity CLEAR Urine pH 7.0 Urine Specific [place] 1.004 Urine Protein NEG mg/dL Urine Glucose (UA) NEG mg/dL Urine Ketones NEG mg/dL Urine Occult Blood NEG Urine Nitrite NEG Urine Bilirubin NEG Urine Urobilinogen LESS THAN 2.0 MG/DL Urine Leukocyte Esterase NEG Urine WBC LESS THAN 1 /hpf Microscopic Urinalysis Comment CULT NOT INDICATED Urine Opiates Screen NEG Urine Barbiturates Screen NEG Urine Amphetamines Screen NEG Urine Benzodiazepines Screen NEG Urine Cocaine Screen NEG Urine Cannabinoids Screen NEG Ammonia 25 MCMOL/L Test 08/06/17 06:02 Blood Urea Nitrogen 21 MG/DL Creatinine 0.54 MG/DL Random Glucose 69 MG/DL Calcium Level 8.8 MG/DL Sodium Level 145 MEQ/L Potassium Level 3.8 MEQ/L Chloride Level 109 MEQ/L Carbon Dioxide Level 26.8 MEQ/L Anion Gap 9 MEQ/L Estimat Glomerular Filtration Rate 108 ML/MIN Hemoglobin A1c 5.2 % Triglycerides Level 72 MG/DL Cholesterol Level 159 MG/DL LDL Cholesterol 70 MG/DL HDL Cholesterol 74.8 MG/DL Cholesterol/HDL Ratio 2.12 RATIO Objective Remarks GENERAL: Awake and alert talkative and cooperative poor dentition SKIN: Warm and dry. HEAD: Atraumatic. Normocephalic. EYES: Pupils equal and round. No scleral icterus. No injection or drainage. ENT: No nasal bleeding or discharge. Mucous membranes pink and moist. Very poor dentition tongue is midline NECK: Trachea midline. No JVD. Supple CARDIOVASCULAR: Regular rate and rhythm. S1-S2 no S3 or S4 no heave or thrill or rub or gallop RESPIRATORY: No accessory muscle use. Clear to auscultation. Breath sounds equal bilaterally. GASTROINTESTINAL: Abdomen soft, non-tender, nondistended. Hepatic and splenic margins not palpable. MUSCULOSKELETAL: Extremities without clubbing, cyanosis, or edema. No obvious deformities. Discolored toes bilaterally on both feet NEUROLOGICAL: Awake and alert. No obvious cranial nerve deficits. Motor grossly within normal limits. 4 out of 5 muscle strength in the arms and legs. Normal speech. PSYCHIATRIC: INAppropriate mood and affect; insight and judgment ABnormal. Procedures NONE Medications and IVs Current Medications Olanzapine (ZyPREXA INJ) 10 mg ONCE ONCE IM Last administered on 08/04/17at 22: 29; Start 08/04/17 at 22:15; Stop 08/04/17 at 22:16; Status DC Lorazepam (Ativan) 1 mg Q6H PRN PO MODERATE TO SEVERE ANXIETY; Start 08/05/17 at 09:15 Lorazepam (Ativan Inj) 1 mg Q6H PRN IM MODERATE TO SEVERE ANXIETY; Start at 09:15 Lorazepam (Ativan) 0.5 mg Q12H PRN PO MODERATE TO SEVERE ANXIETY; Start at 09:15 Lorazepam (Ativan Inj) 0.5 mg Q12H PRN IM MODERATE TO SEVERE ANXIETY; Start at 09:15 Acetaminophen (Tylenol) 650 mg Q4H PRN PO Pain 1-5 or Temp >101F Last administered on 08/07/17at 09:24; Start 08/05/17 at 09:15 Magnesium Hydroxide (Milk Of Magnesia Liq) 30 ml DAILY PRN PO CONSTIPATION; Start 08/05/17 at 09:15 Al Hydrox/Mg Hydrox/Simethicone (Mag-Al Plus Susp Liq) 30 ml Q6H PRN PO DYSPEPSIA; Start 08/05/17 at 09:15 Nicotine (Habitrol 21 Mg Patch.24 Hr) 1 patch DAILY T-DERMAL ; Start 08/05/17 at 09:15 Miscellaneous Information 1 DAILY T-DERMAL ; Start 08/06/17 at 09:00 Clonidine (Catapres) 0.1 mg Q4H PRN PO SBP>160, DBP>90; Start 08/07/17 at 09:00 Quetiapine Fumarate (SEROquel) 12.5 mg BID@09,12 PO ; Start 08/07/17 at 12:00 Miscellaneous (Pill Splitter) 1 ea UNSCH PRN OTHER SEE LABEL COMMENTS; Start at 11:15 A/P Problem List: (1) Chronic schizoaffective disorder with acute exacerbation ICD Code: F25.8 - Other schizoaffective disorders Status: Acute Plan: Management as per psychiatry. (2) Hyperammonemia ICD Code: E72.20 - Disorder of urea cycle metabolism, unspecified Status: Acute Plan: Recheck ammonia level. (3) Hypertension ICD Code: I10 - Essential (primary) hypertension Status: Chronic Plan: BP BORDERLINE=PRN CATAPRES Continue to monitor trend. Assessment and Plan History of urinary tract infection-- stable at this time--no signs of urinary tract infection Hypertension monitor blood pressure meds as needed with as needed Catapres Recheck ammonia level Discharge Planning Pending psychiatric clearance Problem Qualifiers (1) Hypertension: Qualified Codes: I10 - Essential (primary) hypertension Albert Davis DO Aug 07, 2017 11:16
[2017-08-07] MEDS: QUEtiapine FUMARATE 25 MG TAB PO SCH (11:58)
[2017-08-07 18:17] VITALS: BP 139/64; PULSE 63; RESP 16; TEMP 98.3; O2SAT 95
[2017-08-08 07:15] VITALS: BP 145/69; PULSE 59; RESP 16; TEMP 97.8; O2SAT 97
[2017-08-08] MEDS: QUEtiapine FUMARATE 25 MG TAB PO SCH ×2 (09:35→12:14)
[2017-08-08] MEDS: REMOVE OLD PATCH T-DERMAL SCH (09:38)
[2017-08-08] MEDS: NICOTINE 21 MG/24 HR PATCH T-DERMAL SCH (09:38)
--- NOTE | 2017-08-08 10:40 | HHI.PYPN ---
Subjective Remarks The patient was seen today for psychiatric reevaluation. Patient is laying in her bed, she seems to be fragile, with marked psychomotor retardation. But she is cooperative, she reports good mood, she denies depression and anxiety, she denies suicidal and homicidal ideation, she denies visual and auditory hallucinations. The patient is fully oriented 3. She continues to be very paranoid against her . Is compliant with medications, no significant side effects. Review of Systems Psychiatric: COMPLAINS OF: Delusions Except as stated in HPI: all other systems reviewed are Neg Mental Status Examination Appearance: Dirty, Disheveled Consciousness: Somnolent, Clouded Motor Activity: Abnormal gait Speech: Incoherent Language: Adequate Fund of Knowledge: Inadequate Attention and Concentration: Adequate Memory: Unremarkable Mood: Angry, Oppositional Affect: Irritable Thought Process & Associations: Loose associations, Disorganized Thought Content: Bizarre thinking, Delusional Hallucination Type: None Delusion Type: None Suicidal Ideation: No Suicidal Plan: No Suicidal Intention: No Homicidal Ideation: No Homicidal Plan: No Homicidal Intention: No Insight: Poor Judgment: Poor Results Vitals/IOs Vital Signs Date Time Temp Pulse Resp B/P (MAP) Pulse Ox O2 Delivery O2 Flow Rate FiO2 08/08/17 07:15 97.8 59 16 145/69 (94) 97 08/05/17 10:19 Room Air Intake and Output 08/08/17 08/08/17 08/09/17 08:00 16:00 00:00 Intake Total 0 ml Balance 0 ml Assessment & Plan Problem List: (1) Schizoaffective disorder ICD Codes: F25.9 - Schizoaffective disorder, unspecified Status: Acute Assessment & Plan: Continue current psychotropic regimen. Assessment & Plan Estimated LOS: days Justification for Cont. Inpt. Patient continues to be acutely delusional. Corey Banks MD Aug 08, 2017 10:40
--- NOTE | 2017-08-08 11:04 | HHI.PR ---
Subjective Remarks Patient seen and examined this morning. Afebrile vital signs stable. No acute events overnight. Patient reports that she is doing well and has no complaints at this time. Objective Vitals Vital Signs Date Time Temp Pulse Resp B/P (MAP) Pulse Ox O2 Delivery O2 Flow Rate FiO2 08/08/17 07:15 97.8 59 16 145/69 (94) 97 08/07/17 18:17 98.3 63 16 139/64 (89) 95 I/O 08/07/17 08/07/17 08/07/17 08/08/17 08/08/17 08/08/17 07:00 15:00 23:00 07:00 15:00 23:00 Intake Total 0 ml 1560 ml 840 ml 0 ml Balance 0 ml 1560 ml 840 ml 0 ml Intake Oral 0 ml 1560 ml 840 ml 0 ml # Voids 1 1 1 Result Diagram: 08/04/17 1815 08/06/17 0602 Objective Remarks GEN: Thin cachectic elderly female. No acute distress. CV: Regular rate and rhythm without obvious murmurs LUNGS: Clear to auscultation bilaterally. Normal respiratory effort. No wheezes , rales, rhonchi. GI: Soft, nontender, nondistended. No palpable masses. Bowel sounds WNL. EXT: No edema. NEURO/PSYCH: Afocal. Awake, alert, and oriented x3. Appropriate insight and judgment. Procedures NONE Medications and IVs Current Medications Medications (Trade) Dose Ordered Sig/Crystal Route Start Time Stop Time Status Last Admin (Ativan) 1 mg Q6H PRN PO 08/05/17 09:15 (Ativan Inj) 1 mg Q6H PRN IM 08/05/17 09:15 (Ativan) 0.5 mg Q12H PRN PO 08/05/17 09:15 (Ativan Inj) 0.5 mg Q12H PRN IM 08/05/17 09:15 (Tylenol) 650 mg Q4H PRN PO 08/05/17 09:15 08/07/17 09:24 (Milk Of Magnesia Liq) 30 ml DAILY PRN PO 08/05/17 09:15 (Mag-Al Plus Susp Liq) 30 ml Q6H PRN PO 08/05/17 09:15 (Habitrol 21 Mg Patch.24 Hr) 1 patch DAILY T-DERMAL 08/05/17 09:15 Miscellaneous Information 1 DAILY T-DERMAL 08/06/17 09:00 (Catapres) 0.1 mg Q4H PRN PO 08/07/17 09:00 (SEROquel) 12.5 mg BID@09,12 PO 08/07/17 12:00 08/08/17 09:35 (Pill Splitter) 1 ea UNSCH PRN OTHER 08/07/17 11:15 A/P Problem List: (1) Chronic schizoaffective disorder with acute exacerbation ICD Code: F25.8 - Other schizoaffective disorders Status: Acute (2) Hyperammonemia ICD Code: E72.20 - Disorder of urea cycle metabolism, unspecified Status: Acute (3) Hypertension ICD Code: I10 - Essential (primary) hypertension Status: Chronic Assessment and Plan This is an 82-year-old female with schizophrenia. Currently Zayas acted due to psychosis from her schizophrenia. Schizophrenia -Following recommendations of psychiatry Hypertension -Continue Catapres -Continue to monitor blood pressures -Due to age can allow a higher blood pressure than normal Hyperammonemia -Normal at 25 at this time Discharge Planning Pending psychiatry clearance Problem Qualifiers (1) Hypertension: Qualified Codes: I10 - Essential (primary) hypertension Terry Barrera MD R3 Aug 08, 2017 11:04
[2017-08-08 17:45] VITALS: BP 140/76; PULSE 79; RESP 18; TEMP 98; O2SAT 97
[2017-08-09] MEDS: ACETAMINOPHEN 325 MG TAB PO PRN (04:29)
[2017-08-09 05:51] VITALS: BP 165/71; PULSE 67; RESP 16; TEMP 97.9; O2SAT 94
[2017-08-09] MEDS: NICOTINE 21 MG/24 HR PATCH T-DERMAL SCH (08:00)
[2017-08-09] MEDS: REMOVE OLD PATCH T-DERMAL SCH (08:00)
[2017-08-09] MEDS: QUEtiapine FUMARATE 25 MG TAB PO SCH ×3 (08:53→12:00)
--- NOTE | 2017-08-09 10:00 | HHI.PR ---
Subjective Remarks Consult regarding blood pressures. Blood pressures now improved, ranging from 120s-160s systolic. No further need to adjust. Objective Vital Signs Date Time Temp Pulse Resp B/P (MAP) Pulse Ox O2 Delivery O2 Flow Rate FiO2 08/09/17 05:51 97.9 67 16 165/71 (102) 94 08/08/17 17:45 98.0 79 18 140/76 (97) 97 I/O 08/08/17 08/08/17 08/08/17 08/09/17 08/09/17 08/09/17 07:00 15:00 23:00 07:00 15:00 23:00 Intake Total 0 ml 1680 ml 600 ml Balance 0 ml 1680 ml 600 ml Intake Oral 0 ml 1680 ml 600 ml # Voids 1 2 4 Result Diagram: 08/06/17 0602 Objective Remarks GENERAL: NAD, A&Ox0 HEAD: Normocephalic. NECK: Supple, trachea midline. No lymphadenopathy. EYES: No scleral icterus. No injection or drainage. CARDIOVASCULAR: Regular rate and rhythm without murmurs, gallops, or rubs. RESPIRATORY: Breath sounds equal bilaterally. No accessory muscle use. GASTROINTESTINAL: Abdomen soft, non-tender, nondistended. MUSCULOSKELETAL: No cyanosis, or edema. SKIN: Warm and dry. NEURO: No focal neurological deficitis. A/P Problem List: (1) Chronic schizoaffective disorder with acute exacerbation ICD Code: F25.8 - Other schizoaffective disorders Status: Acute (2) Hypertension ICD Code: I10 - Essential (primary) hypertension Status: Chronic (3) Hyperammonemia ICD Code: E72.20 - Disorder of urea cycle metabolism, unspecified Status: Acute Assessment and Plan 82-year-old female with schizophrenia. Currently Zayas acted due to psychosis from her schizophrenia. Medical consult regarding HTN and Hepatic Encephaloitis (hyperammonemia). Ammonia levels normalized. HTN controlled. Now stable. No need for futher medical monitoring. Stable for transfer off medical psychiatry floor from medical perspective. Schizophrenia Continue care with psychiatry Hypertension Controlled Continue PRN Catapress Hyperammonemia Resolved No need for further monitoring at this time Discharge Planning Discharge pending psychiatry clearance Medically stable for discharge Medically clear for transfer off medical psych floor Medical team will sign off at this time Problem Qualifiers (1) Hypertension: Qualified Codes: I10 - Essential (primary) hypertension Michael Urbina MD Aug 09, 2017 10:00
--- NOTE | 2017-08-09 11:55 | HHI.PYPN ---
Subjective Remarks Patient seen for follow, chart reviewed. Discussion nursing staff reported the patient is alert and oriented 3 is noted to be religiously preoccupied, with episodes of verbal agitation this morning. Patient was found ambulating on the unit yelling and was redirected back to her room. Patient noted to be disorganized during interview, with loosening associations, and tangential. Patient throughout interview noted to be religiously preoccupied making reference to the devil and Alfredo stating that she is and uses and had asked her why she was here in the hospital. Patient continues to refuse medications. We will attempt to reach patient's son to be healthcare surrogate as patient's at this time may to adequately fulfill role as health care surrogate, recent visit by DCFS suspected patient's with memory impairment. Review of Systems Except as stated in HPI: all other systems reviewed are Neg Mental Status Examination Appearance: Dirty, Disheveled Consciousness: Somnolent, Clouded Motor Activity: Abnormal gait Speech: Incoherent Language: Adequate Fund of Knowledge: Inadequate Attention and Concentration: Adequate Memory: Unremarkable Mood: Angry, Oppositional Affect: Irritable Thought Process & Associations: Loose associations, Disorganized Thought Content: Bizarre thinking, Delusional Hallucination Type: None Delusion Type: None Suicidal Ideation: No Suicidal Plan: No Suicidal Intention: No Homicidal Ideation: No Homicidal Plan: No Homicidal Intention: No Insight: Poor Judgment: Poor Results Vitals/IOs Vital Signs Date Time Temp Pulse Resp B/P (MAP) Pulse Ox O2 Delivery O2 Flow Rate FiO2 08/09/17 05:51 97.9 67 16 165/71 (102) 94 08/05/17 10:19 Room Air Intake and Output 08/09/17 08/09/17 08/10/17 08:00 16:00 00:00 Intake Total 600 ml Balance 600 ml Assessment & Plan Problem List: (1) Schizoaffective disorder ICD Codes: F25.9 - Schizoaffective disorder, unspecified Status: Acute Assessment & Plan Patient at this time noted to be disorganized, religiously preoccupied, tangential, loosening associations along with poor hygiene. Patient will require starting of antipsychotic to address psychotic symptoms at this time. We will continue to attempt to reach patient's son to serve as health care surrogate to consent for medications. We will continue to monitor mood and behavior. Discharge planning in progress. Justification for Cont. Inpt. At risk of further decompensation a lower level of care. Discharge Planning To be determined as patient will require placement. Arslan Moreno MD Aug 09, 2017 11:55
[2017-08-09 18:21] VITALS: BP 138/107; PULSE 81; RESP 18; TEMP 98.9; O2SAT 92
[2017-08-09] MEDS: LORazepam 1 MG TAB PO PRN ×2 (21:42→22:07)
[2017-08-09] MEDS: LORazepam 2 MG/ML VIAL IM PRN (22:03)
[2017-08-10] MEDS: ACETAMINOPHEN 325 MG TAB PO PRN (06:05)
[2017-08-10 06:09] VITALS: BP 149/66; PULSE 72; RESP 19; TEMP 97.6; O2SAT 98
[2017-08-10] MEDS: NICOTINE 21 MG/24 HR PATCH T-DERMAL SCH (09:00)
[2017-08-10] MEDS: REMOVE OLD PATCH T-DERMAL SCH (09:00)
[2017-08-10] MEDS ORDERED: BENZTROPINE MESYLATE 1 MG TAB PO PRN (09:00)
[2017-08-10] MEDS ORDERED: HALOPERIDOL LACTATE 5 MG/ML AMP IM SCH (09:00)
[2017-08-10] MEDS ORDERED: HALOPERIDOL 5 MG TAB PO SCH (09:00)
[2017-08-10] MEDS: LORazepam 2 MG/ML VIAL IM PRN (09:46)
[2017-08-10] MEDS: LORazepam 1 MG TAB PO PRN (09:46)
[2017-08-10 10:09] VITALS: BP_SYST 163; BP_SYST 164; BP_DIAS 72; BP_DIAS 83; PULSE 115; RESP 18; TEMP 97.2; O2SAT 90
--- NOTE | 2017-08-10 10:34 | RADRPT ---
EXAM DATE/TIME: 08/10/2017 10:10 [facility] COMPARISON: CT BRAIN W/O CONTRAST, May 06, 2015, 18:13. INDICATIONS : Patient fell, hit back of head RADIATION DOSE: 33.38 CTDIvol (mGy) MEDICAL HISTORY : Hypertension. Diabetes mellitus type 1. SURGICAL HISTORY : None. ENCOUNTER: Initial ACUITY: 1 day PAIN SCALE: 4/10 LOCATION: occipital TECHNIQUE: Multiple contiguous axial images were obtained of the head. Using automated exposure control and adj ustment of the mA and/or kV according to patient size, radiation dose was kept as low as reasonably a chievable to obtain optimal diagnostic quality images. DICOM format image data is available electro nically for review and comparison. FINDINGS: CEREBRUM: The ventricles are normal for age. No evidence of midline shift, mass lesion, hemorrhage or acute in farction. No extra-axial fluid collections are seen. POSTERIOR FOSSA: The cerebellum and brainstem are intact. The 4th ventricle is midline. The cerebellopontine angle i s unremarkable. EXTRACRANIAL: The visualized portion of the orbits is intact. SKULL: Focal soft tissue thickening of the scalp in the right mid occipital region. The calvaria is intact. No evidence of skull fracture. CONCLUSION: 1. No acute findings in the brain. 2. Right occipital scalp swelling. No skull fracture seen. Caleb Heredia MD on August 10, 2017 at 10:24 Board Certified Radiologist. This report was verified electronically.
[2017-08-10 10:38] VITALS: BP 125/59; PULSE 81
--- NOTE | 2017-08-10 10:53 | PD.TTN ---
Patient Problems 1. Discharge planning 2. Medication compliance 3. Knowledge deficit 4. Lack of coping skills Progress Toward Goals Provider Present: Dr. Krystian Moreno Provider Input: 08/09/2017': Medication adjustments, counselor will need to contact patient's adult children Nurse(s) Present: Sriram Kendall Nurse(s) Input: 08/09/2017: patient requires redirect and coaching with meals, medication and mood. Psychiatric Counselors Present: DIANNA Fox Psych Therapist Input: 08/09/2017: counselor will contact patient's NOK to discuss dc concerns and needs Group Spec/RT/OT/VERMA Present: Reza Garza OT Group Spec/RT/OT/VERMA Input: 08/09/2017: patient is unable to tolerate groups Documentation Scribe: Janelle Foss August 10, 2017 10:53
--- NOTE | 2017-08-10 12:21 | RADRPT ---
EXAM DATE/TIME: 08/10/2017 11:49 [facility] COMPARISON: No previous studies available for comparison. INDICATIONS : Right hip pain, fall MEDICAL HISTORY : None. SURGICAL HISTORY : None. ENCOUNTER: Initial ACUITY: 1 day PAIN SCORE: Non-responsive. LOCATION: Right hip FINDINGS: Examination of the right hip was performed with AP Pelvis. The primary and secondary trabecular silvia tammy of the femoral neck is intact. The hip joint is of normal width without significant sclerosis or bony hypertrophy. The acetabulum is grossly intact. Osteopenia. CONCLUSION: No acute fracture or malalignment. Onel Mccormack MD on August 10, 2017 at 12:19 Board Certified Radiologist. This report was verified electronically.
--- NOTE | 2017-08-10 12:24 | RADRPT ---
EXAM DATE/TIME: 08/10/2017 11:49 [facility] COMPARISON: No previous studies available for comparison. INDICATIONS : Fall, pain right shoulder MEDICAL HISTORY : None. SURGICAL HISTORY : None. ENCOUNTER: Initial ACUITY: 1 day PAIN SCORE: Non-responsive. LOCATION: Right shoulder FINDINGS: Multiple view examination of the right shoulder demonstrates no evidence of fracture or dislocation. The glenohumeral and acromioclavicular joints are maintained. There is normal range of motion betwe en internal and external rotation. There is diffuse osteopenia. CONCLUSION: Osteopenia with no acute fracture or malalignment. Onel Mccormack MD on August 10, 2017 at 12:21 Board Certified Radiologist. This report was verified electronically.
[2017-08-10 12:38] VITALS: BP 135/75; PULSE 76; RESP 18; TEMP 97.8; O2SAT 91
--- NOTE | 2017-08-10 13:51 | HHI.PR ---
Subjective Remarks Follow-up for hypertension. Patient is currently resting in chair. She fell earlier and hit her head. CT head was negative. She has a hematoma on her occipital area. No acute neurological concerns. Objective Vitals Vital Signs Date Time Temp Pulse Resp B/P (MAP) Pulse Ox O2 Delivery O2 Flow Rate FiO2 08/10/17 12:38 97.8 76 18 135/75 (95) 91 08/10/17 10:38 81 125/59 (81) 08/10/17 10:09 97.2 115 18 163/83 (109) 90 08/10/17 07:02 16 08/10/17 06:09 97.6 72 19 149/66 (93) 98 08/09/17 18:21 98.9 81 18 138/107 (117) 92 I/O 08/09/17 08/09/17 08/09/17 08/10/17 08/10/17 08/10/17 07:00 15:00 23:00 07:00 15:00 23:00 Intake Total 600 ml 360 ml 240 ml Balance 600 ml 360 ml 240 ml Intake Oral 600 ml 360 ml 240 ml # Voids 4 1 Result Diagram: 08/06/17 0602 Imaging Last Impressions Shoulder X-Ray 08/10/17 0000 Signed Impressions: Service Date/Time: Thursday, August 10, 2017 11:49 - CONCLUSION: Osteopenia with no acute fracture or malalignment. Onel Mccormack MD Hip and Pelvis X-Ray 08/10/17 0000 Signed Impressions: Service Date/Time: Thursday, August 10, 2017 11:49 - CONCLUSION: No acute fracture or malalignment. Onel Mccormack MD Head CT 08/10/17 0000 Signed Impressions: Service Date/Time: Thursday, August 10, 2017 10:10 - CONCLUSION: 1. No acute findings in the brain. 2. Right occipital scalp swelling. No skull fracture seen. Caleb Heredia MD Objective Remarks GENERAL: Alert, NAD. SKIN: Warm and dry. HEAD: Normocephalic. There is a small hematoma on her occipital area on the right side. No bleeding or drainage. EYES: No scleral icterus. No injection or drainage. NECK: Supple, trachea midline. No JVD or lymphadenopathy. CARDIOVASCULAR: Regular rate and rhythm without murmurs, gallops, or rubs. RESPIRATORY: Breath sounds equal bilaterally. No accessory muscle use. GASTROINTESTINAL: Abdomen soft, non-tender, nondistended. MUSCULOSKELETAL: No cyanosis, or edema. BACK: Nontender without obvious deformity. No CVA tenderness. Procedures NONE A/P Problem List: (1) Chronic schizoaffective disorder with acute exacerbation ICD Code: F25.8 - Other schizoaffective disorders Status: Acute (2) Hyperammonemia ICD Code: E72.20 - Disorder of urea cycle metabolism, unspecified Status: Acute (3) Hypertension ICD Code: I10 - Essential (primary) hypertension Status: Chronic Assessment and Plan 82-year-old female with schizophrenia. Currently Zayas acted due to psychosis from her schizophrenia. Medical consult regarding HTN and Hepatic Encephaloitis (hyperammonemia). Schizophrenia Continue care with psychiatry Hypertension Continue PRN Clonidine. Hyperammonemia Resolved No need for further monitoring at this time Right occipital hematoma No neurological concerns. CT unremarkable except for right occipital swelling. D/W with RN regarding cold compression. Full code. Ambulation. Problem Qualifiers (1) Hypertension: Qualified Codes: I10 - Essential (primary) hypertension Lenin Richardson DO August 10, 2017 1:51 pm
--- NOTE | 2017-08-10 17:27 | HHI.PYPN ---
Subjective Remarks Patient seen for follow-up, chart reviewed. Discussion with nursing staff reported that the patient was agitated this morning which struck at staff and pushing walker toward another patient. Patient was given Haldol 5mg IM x 1 for agitation and to address ongoing psychotic symptoms. Patient later suffered a fall which she had hit her head, Head CT negative for any fracture or structural abnormalities, RT shoulder and hip xrays negative. Patient was kept on neurochecks. Patient was found sitting in day room, somewhat somnolent due to sedation from medication earlier today but able to wake up and answer appropriately. Patient states that she has some mild pain on the right side of her head. She mentions having been visited by her which went well during the visit. Review of Systems Neurologic: COMPLAINS OF: Headache Except as stated in HPI: all other systems reviewed are Neg Mental Status Examination Appearance: Disheveled Consciousness: Somnolent (due to recent IM medications), Clouded Orientation: Person, Place Motor Activity: Abnormal gait Speech: Incoherent Language: Adequate Fund of Knowledge: Inadequate Attention and Concentration: Adequate Memory: Unremarkable Mood: Appropriate Affect: Other (restricted) Thought Process & Associations: Loose associations, Disorganized Thought Content: Bizarre thinking, Delusional Hallucination Type: None Delusion Type: None Suicidal Ideation: No Suicidal Plan: No Suicidal Intention: No Homicidal Ideation: No Homicidal Plan: No Homicidal Intention: No Insight: Poor Judgment: Poor Results Vitals/IOs Vital Signs Date Time Temp Pulse Resp B/P (MAP) Pulse Ox O2 Delivery O2 Flow Rate FiO2 08/10/17 12:38 97.8 76 18 135/75 (95) 91 Intake and Output 08/10/17 08/10/17 08/11/17 08:00 16:00 00:00 Intake Total 360 ml 120 ml Balance 360 ml 120 ml Assessment & Plan Problem List: (1) Schizoaffective disorder ICD Codes: F25.9 - Schizoaffective disorder, unspecified Status: Acute Assessment & Plan Patient continues with disorganization, had required Haldol 5mg IM x 1 due to agitation this morning and aggressive behavior toward staff. Patient noted to have been somnolent for most of the day. Although patient had negative Head CT and adequate neuro checks will order Brain MRI due to patient's continued lethargy. Continue current treatment, continue to monitor mood and behavior. Falls precautions, monitor for orthostatic hypotension. Discharge planning in progress. Justification for Cont. Inpt. At risk for further decompensation at lower level of care. Arslan Moreno MD August 10, 2017 17:27
[2017-08-10 17:40] VITALS: BP 134/63; PULSE 70; RESP 18; TEMP 97.6
--- NOTE | 2017-08-10 19:28 | RADRPT ---
EXAM DATE/TIME: 08/10/2017 18:33 [facility] COMPARISON: No previous studies available for comparison. INDICATIONS : Hematoma, head pain due to fall. MEDICAL HISTORY : Hypertension. SURGICAL HISTORY : None. ENCOUNTER: Initial ACUITY: 1 day PAIN SCORE: 2/10 LOCATION: Right cranial anterior region. TECHNIQUE: Multiplanar, multisequence MRI of the brain was performed without contrast. FINDINGS: CEREBRUM: The ventricles are normal for age. No evidence of midline shift, mass lesion, hemorrhage or acute in farction. No extraaxial fluid collections are seen. The pituitary gland and suprasellar cistern are normal in configuration. WHITE MATTER: Moderate signal abnormalities are seen in the white matter. POSTERIOR FOSSA: The cerebellum and brainstem are intact. The 4th ventricle is midline. The cerebellopontine angle is unremarkable. The cerebellar tonsils are normal in position. DIFFUSION IMAGING: No focal areas of restricted diffusion are seen. No evidence of acute infarction. EXTRACRANIAL: The visualized portions of the orbits and paranasal sinuses are unremarkable. CONCLUSION: 1. Mild to moderate chronic white matter ischemic changes. No acute findings. No recent infarct or ma ss effect. Krystian Mullins MD on August 10, 2017 at 19:25 Board Certified Radiologist. This report was verified electronically.
[2017-08-10] MEDS: HALOPERIDOL 5 MG TAB PO SCH (20:17)
[2017-08-10] MEDS: HALOPERIDOL LACTATE 5 MG/ML AMP IM SCH (20:59)
[2017-08-10] MEDS ORDERED: diphenhydrAMINE HCL 25 MG CAP PO PRN (21:00)
[2017-08-10 22:00] VITALS: BP 141/64; PULSE 72; RESP 18; O2SAT 90
[2017-08-11 02:16] VITALS: BP 119/57; PULSE 58; RESP 16; O2SAT 94
[2017-08-11 05:17] VITALS: BP 128/60; PULSE 60; RESP 16; TEMP 97.7; O2SAT 90
[2017-08-11] MEDS: HALOPERIDOL LACTATE 5 MG/ML AMP IM SCH ×2 (09:00→21:00)
[2017-08-11] MEDS: NICOTINE 21 MG/24 HR PATCH T-DERMAL SCH (09:00)
[2017-08-11] MEDS: REMOVE OLD PATCH T-DERMAL SCH (09:00)
[2017-08-11] MEDS: HALOPERIDOL 5 MG TAB PO SCH ×2 (09:14→20:58)
[2017-08-11 09:30] VITALS: BP 125/58; PULSE 60; RESP 16; TEMP 97.8; O2SAT 90
--- NOTE | 2017-08-11 15:06 | PD.TTN ---
Patient Problems 1. Discharge planning 2. Medication compliance 3. Knowledge deficit 4. Lack of coping skills Progress Toward Goals Provider Present: Dr. Krystian Moreno Provider Input: 08/11/17 patient has resufed medications but got a shot yesterday and appears alittle more cooperative today 08/09/2017': Medication adjustments, counselor will need to contact patient's adult children Nurse(s) Present: Sriram Kendall Nurse(s) Input: 08/11/17 pt is more cooperative and talkative today taking medications today 08/09/2017: patient requires redirect and coaching with meals, medication and mood. Psychiatric Counselors Present: Debbie Bergman LCSW, Janelle Cartwright, 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
[2017-08-11 18:00] VITALS: BP 134/66; PULSE 60; RESP 17; TEMP 98.6; O2SAT 94
--- NOTE | 2017-08-11 22:01 | HHI.PYPN ---
Subjective Remarks Patient seen for follow up; chart reviewed. Discussion nursing staff reported patient continued with agitation, has been compliant with treatment continues to be noted to be talking to self and had visit from which she dismissed yesterday and would become very upset which patient's had to leave. Patient was found sitting in hospital chair noted be asleep was able to wake up for interview. Patient states she is feeling "alright" reporting having some constipation. Patient also denies any perceptional services and noted to be talking to self at times. Patient states that she had visit from her and states that she did not want to return back to the home with him stating that her "is a violent man". Patient during interview continues to be tangential without loosening associations. Review of Systems Except as stated in HPI: all other systems reviewed are Neg Mental Status Examination Appearance: Disheveled Consciousness: Alert, Clouded Orientation: Person, Place Motor Activity: Abnormal gait Speech: Incoherent Language: Adequate Fund of Knowledge: Inadequate Attention and Concentration: Adequate Memory: Unremarkable Mood: Appropriate Affect: Other (restricted) Thought Process & Associations: Loose associations, Disorganized, Tangential Thought Content: Bizarre thinking, Delusional Hallucination Type: None Delusion Type: Paranoid Suicidal Ideation: No Suicidal Plan: No Suicidal Intention: No Homicidal Ideation: No Homicidal Plan: No Homicidal Intention: No Insight: Poor Judgment: Poor Results Vitals/IOs Vital Signs Date Time Temp Pulse Resp B/P (MAP) Pulse Ox O2 Delivery O2 Flow Rate FiO2 08/11/17 18:00 98.6 60 17 134/66 (88) 94 Intake and Output 08/11/17 08/11/17 08/12/17 08:00 16:00 00:00 Intake Total 1590 ml 120 ml Balance 1590 ml 120 ml Assessment & Plan Problem List: (1) Schizoaffective disorder ICD Codes: F25.9 - Schizoaffective disorder, unspecified Status: Acute Assessment & Plan Patient this time continues to have disorganization, tangential, loosening associations continues to talk to self. Patient was restarted on psychotropic medications recently but did have orthostatic hypotension which patient did have a fall which imaging was negative for any significant injury of the soft tissue swelling. Patient to continue Haldol at current dose with upper titration as needed. Continue monitor and behavior. Discharge planning in progress. Justification for Cont. Inpt. At risk of further decompensation at lower level of care Arslan Moreno MD August 11, 2017 22:01
[2017-08-12 05:15] VITALS: BP 124/58; PULSE 74; RESP 16; TEMP 97.6; O2SAT 96
[2017-08-12] MEDS: HALOPERIDOL LACTATE 5 MG/ML AMP IM SCH ×2 (09:00→20:56)
[2017-08-12] MEDS: REMOVE OLD PATCH T-DERMAL SCH (09:00)
[2017-08-12] MEDS: NICOTINE 21 MG/24 HR PATCH T-DERMAL SCH (09:00)
[2017-08-12] MEDS: HALOPERIDOL 5 MG TAB PO SCH ×2 (09:36→20:24)
--- NOTE | 2017-08-12 11:12 | HHI.PR ---
Subjective Remarks Patient seen while eating breakfast. Denies any pain to posterior head. denies any chest pain. RN reports no issues. Objective Vitals Vital Signs Date Time Temp Pulse Resp B/P (MAP) Pulse Ox O2 Delivery O2 Flow Rate FiO2 08/12/17 05:15 97.6 74 16 124/58 (80) 96 08/11/17 18:00 98.6 60 17 134/66 (88) 94 I/O 08/11/17 08/11/17 08/11/17 08/12/17 08/12/17 08/12/17 07:00 15:00 23:00 07:00 15:00 23:00 Intake Total 1590 ml 480 ml 120 ml 360 ml Balance 1590 ml 480 ml 120 ml 360 ml Intake Oral 1590 ml 480 ml 120 ml 360 ml # Voids 1 1 Objective Remarks GENERAL: Alert, NAD. SKIN: Warm and dry. HEAD: Normocephalic. There is a small hematoma on her occipital area on the right side. No bleeding or drainage. EYES: No scleral icterus. No injection or drainage. CARDIOVASCULAR: Regular rate and rhythm without murmurs, gallops, or rubs. RESPIRATORY: Breath sounds equal bilaterally. No accessory muscle use. BACK: Nontender without obvious deformity. No CVA tenderness. Procedures NONE Urinary Catheter: No Vascular Central Line Catheter: No A/P Problem List: (1) Chronic schizoaffective disorder with acute exacerbation ICD Code: F25.8 - Other schizoaffective disorders Status: Acute (2) Hyperammonemia ICD Code: E72.20 - Disorder of urea cycle metabolism, unspecified Status: Acute (3) Hypertension ICD Code: I10 - Essential (primary) hypertension Status: Chronic Assessment and Plan 82-year-old female with schizophrenia. Currently Zayas acted due to psychosis from her schizophrenia. Medical consult regarding HTN and Hepatic Encephaloitis (hyperammonemia). Schizophrenia -Continue care with psychiatry Hypertension, resolved -Continue PRN Clonidine. Hyperammonemia -Resolved -No need for further monitoring at this time Right occipital hematoma -Cont to monitor -Cont cold compression as needed. Full code. Ambulation. [facility] will sign off at this time, reconsult as needed Problem Qualifiers (1) Hypertension: Qualified Codes: I10 - Essential (primary) hypertension Traci Tam August 12, 2017 11:12
--- NOTE | 2017-08-12 16:00 | HHI.PYPN ---
Subjective Remarks Patient seen for follow, chart reviewed. Discussion nursing staff reported the patient continued to be noted talking to self. Patient was presented to mental health court which patient was deemed for involuntary hospitalization. Patient during a court proceeding was noted to be somewhat disorganized, tangential. Patient expressed not wanting to go back to live with her . [facility] has been involved and has deemed the patient may not return back to her home and is unsafe for her to do so at this time. Review of Systems Except as stated in HPI: all other systems reviewed are Neg Mental Status Examination Appearance: Disheveled Consciousness: Alert, Clouded Orientation: Person, Place Motor Activity: Abnormal gait Speech: Incoherent Language: Adequate Fund of Knowledge: Inadequate Attention and Concentration: Adequate Memory: Unremarkable Mood: Appropriate Affect: Other (restricted) Thought Process & Associations: Loose associations, Disorganized, Tangential Thought Content: Bizarre thinking, Delusional Hallucination Type: None Delusion Type: Paranoid Suicidal Ideation: No Suicidal Plan: No Suicidal Intention: No Homicidal Ideation: No Homicidal Plan: No Homicidal Intention: No Insight: Poor Judgment: Poor Results Vitals/IOs Vital Signs Date Time Temp Pulse Resp B/P (MAP) Pulse Ox O2 Delivery O2 Flow Rate FiO2 08/12/17 05:15 97.6 74 16 124/58 (80) 96 Intake and Output 08/12/17 08/12/17 08/13/17 08:00 16:00 00:00 Intake Total 120 ml 840 ml Balance 120 ml 840 ml Assessment & Plan Problem List: (1) Schizoaffective disorder ICD Codes: F25.9 - Schizoaffective disorder, unspecified Status: Acute Assessment & Plan Patient at this time continues with some disorganization, loosening associations , less irritable today, less verbal aggression. Patient appears to be improving , we will continue current treatment. Continue monitor mood and behavior. Patient unable to return back to her residence as [facility] has deemed it unsafe for her to do so. Once stable will address the possibility of patient returning back to a long-acting injectable prior to discharge. Discharge planning in progress. Justification for Cont. Inpt. At risk of further decompensation at lower level of care. Arslan Moreno MD August 12, 2017 16:00
[2017-08-12 18:06] VITALS: BP 112/63; PULSE 77; RESP 17; TEMP 98.4; O2SAT 95
[2017-08-13 05:29] VITALS: BP 134/64; PULSE 74; RESP 16; TEMP 98.6; O2SAT 91
[2017-08-13] MEDS: HALOPERIDOL 5 MG TAB PO SCH (08:08)
[2017-08-13] MEDS: NICOTINE 21 MG/24 HR PATCH T-DERMAL SCH (08:09)
[2017-08-13] MEDS: HALOPERIDOL LACTATE 5 MG/ML AMP IM SCH ×2 (08:09→21:35)
[2017-08-13] MEDS: REMOVE OLD PATCH T-DERMAL SCH (08:10)
--- NOTE | 2017-08-13 12:50 | HHI.PYPN ---
Subjective Remarks Patient seen for follow-up, chart reviewed. Discussion nursing staff reported the patient was to be very demanding this morning, internally preoccupied at times and talking to self, but compliant with medications with encouragement. Patient was found sitting in day room noted to be asleep but able to wake up for interview. Patient states that she is feeling "okay" goes on to mention how she does not want return back with , tangential. Although patient denies any auditory or visual hallucinations during interview patient is noted to be talking to self at times responding to internal stimuli. Patient continues with paranoia regarding her as well as with staff although noted less guarded today. Review of Systems Except as stated in HPI: all other systems reviewed are Neg Mental Status Examination Appearance: Disheveled Consciousness: Alert, Clouded Orientation: Person, Place Motor Activity: Abnormal gait Speech: Incoherent Language: Adequate Fund of Knowledge: Inadequate Attention and Concentration: Adequate Memory: Unremarkable Mood: Appropriate Affect: Other (restricted) Thought Process & Associations: Loose associations, Disorganized, Tangential Thought Content: Bizarre thinking, Delusional Hallucination Type: None Delusion Type: Paranoid Suicidal Ideation: No Suicidal Plan: No Suicidal Intention: No Homicidal Ideation: No Homicidal Plan: No Homicidal Intention: No Insight: Poor Judgment: Poor Results Vitals/IOs Vital Signs Date Time Temp Pulse Resp B/P (MAP) Pulse Ox O2 Delivery O2 Flow Rate FiO2 08/13/17 05:29 98.6 74 16 134/64 (87) 91 Intake and Output 08/13/17 08/13/17 08/14/17 08:00 16:00 00:00 Intake Total 0 ml Balance 0 ml Assessment & Plan Problem List: (1) Schizoaffective disorder ICD Codes: F25.9 - Schizoaffective disorder, unspecified Status: Acute Assessment & Plan Patient this time continues to be noted to be internally preoccupied and talking to self at times but less intense, still irritable and demanding with staff but no verbal aggression or physical aggression recently. Patient continues to require encouragement to comply to medications. We will increase Haldol to 2 mg a.m./4.5 mg at bedtime for psychosis, continue monitor mood and behavior. Continue monitor for orthostatic hypotension. EKG ordered. Discharge planning in progress. Justification for Cont. Inpt. At risk of further decompensation at lower level care. Arslan Moreno MD August 13, 2017 12:50
[2017-08-13 18:08] VITALS: BP 125/58; PULSE 67; RESP 14; TEMP 97.9; O2SAT 96
[2017-08-13] MEDS: HALOPERIDOL 2 MG TAB PO SCH (21:00)
[2017-08-14 06:23] VITALS: BP 145/66; PULSE 58; RESP 16; TEMP 97.5; O2SAT 94
[2017-08-14] MEDS: NICOTINE 21 MG/24 HR PATCH T-DERMAL SCH (09:00)
[2017-08-14] MEDS: REMOVE OLD PATCH T-DERMAL SCH (09:00)
[2017-08-14] MEDS: HALOPERIDOL 5 MG TAB PO SCH (09:51)
--- NOTE | 2017-08-14 16:07 | HHI.PYPN ---
Subjective Remarks Patient was seen and case discussed with nursing. Patient is alert and oriented 2. She is behaving well on the unit. No agitation or outbursts. Compliant with medications. Mental Status Examination Appearance: Disheveled Consciousness: Alert, Clouded Orientation: Person, Place Motor Activity: Abnormal gait Speech: Incoherent Language: Adequate Fund of Knowledge: Inadequate Attention and Concentration: Adequate Memory: Unremarkable Mood: Appropriate Affect: Other (restricted) Thought Process & Associations: Loose associations, Disorganized, Tangential Thought Content: Bizarre thinking, Delusional Hallucination Type: None Delusion Type: Paranoid Suicidal Ideation: No Suicidal Plan: No Suicidal Intention: No Homicidal Ideation: No Homicidal Plan: No Homicidal Intention: No Insight: Poor Judgment: Poor Results Vitals/IOs Vital Signs Date Time Temp Pulse Resp B/P (MAP) Pulse Ox O2 Delivery O2 Flow Rate FiO2 08/14/17 06:23 97.5 58 16 145/66 (92) 94 Intake and Output 08/14/17 08/14/17 08/15/17 08:00 16:00 00:00 Intake Total 480 ml 240 ml Balance 480 ml 240 ml Assessment & Plan Problem List: (1) Schizoaffective disorder ICD Codes: F25.9 - Schizoaffective disorder, unspecified Status: Acute Assessment & Plan Continue current treatment plan Justification for Cont. Inpt. Patient would decompensate in a less restrictive setting Hermann Gabriel DO August 14, 2017 16:07
[2017-08-14 18:00] VITALS: BP 143/75; PULSE 71; RESP 16; TEMP 98.4; O2SAT 95
[2017-08-14] MEDS: HALOPERIDOL LACTATE 5 MG/ML AMP IM SCH (21:00)
[2017-08-14] MEDS: HALOPERIDOL 2 MG TAB PO SCH (21:06)
[2017-08-15 06:00] VITALS: BP 174/81; PULSE 55; RESP 16; TEMP 98.2; O2SAT 93
[2017-08-15] MEDS: HALOPERIDOL 5 MG TAB PO SCH (08:54)
[2017-08-15] MEDS: NICOTINE 21 MG/24 HR PATCH T-DERMAL SCH (09:00)
[2017-08-15] MEDS: HALOPERIDOL LACTATE 5 MG/ML AMP IM SCH ×2 (09:00→20:15)
[2017-08-15] MEDS: REMOVE OLD PATCH T-DERMAL SCH (09:00)
--- NOTE | 2017-08-15 15:26 | HHI.PYPN ---
Subjective Remarks Patient was seen and case discussed with nursing. Patient is eating and sleeping well. Behaving well on the unit. Compliant with medications. No outbursts. Asking to speak with her family on the phone. Mental Status Examination Appearance: Disheveled Consciousness: Alert, Clouded Orientation: Person, Place Motor Activity: Abnormal gait Speech: Incoherent Language: Adequate Fund of Knowledge: Inadequate Attention and Concentration: Adequate Memory: Unremarkable Mood: Appropriate Affect: Other (restricted) Thought Process & Associations: Loose associations, Disorganized, Tangential Thought Content: Bizarre thinking, Delusional Hallucination Type: None Delusion Type: Paranoid Suicidal Ideation: No Suicidal Plan: No Suicidal Intention: No Homicidal Ideation: No Homicidal Plan: No Homicidal Intention: No Insight: Poor Judgment: Poor Results Vitals/IOs Vital Signs Date Time Temp Pulse Resp B/P (MAP) Pulse Ox O2 Delivery O2 Flow Rate FiO2 08/15/17 06:00 98.2 55 16 174/81 (112) 93 Intake and Output 08/15/17 08/15/17 08/16/17 08:00 16:00 00:00 Intake Total 481 ml 120 ml Balance 481 ml 120 ml Assessment & Plan Problem List: (1) Schizoaffective disorder ICD Codes: F25.9 - Schizoaffective disorder, unspecified Status: Acute Assessment & Plan Continue current treatment plan Justification for Cont. Inpt. Patient would decompensate in a less restrictive setting Hermann Gabriel DO August 15, 2017 15:26
[2017-08-15 18:09] VITALS: BP 140/65; PULSE 65; RESP 16; TEMP 98.1; O2SAT 98
[2017-08-15] MEDS: HALOPERIDOL 2 MG TAB PO SCH (20:14)
[2017-08-16 06:03] VITALS: BP 140/63; PULSE 61; RESP 15; TEMP 97.7; O2SAT 96
[2017-08-16] MEDS: HALOPERIDOL 5 MG TAB PO SCH (09:50)
[2017-08-16] MEDS: HALOPERIDOL LACTATE 5 MG/ML AMP IM SCH ×2 (09:51→21:00)
[2017-08-16] MEDS: REMOVE OLD PATCH T-DERMAL SCH (09:51)
[2017-08-16] MEDS: NICOTINE 21 MG/24 HR PATCH T-DERMAL SCH (09:51)
--- NOTE | 2017-08-16 10:12 | HHI.PYPN ---
Subjective Remarks Patient seen for follow up up; chart reviewed. Discussion with nursing staff reported limited nutritional intake recently but no behavioral issues, compliant with treatment. Patient was found lying on hospital bed, calm and cooperative, smiling today. She states that this evening by her sister who has some medical illness, I also reports having been visited by her which went well over the weekend. Patient states that her mood has been "okay" denying any perceptional services, reports tolerating medications well. Patient was reporting some chest pressure which she states has been ongoing for about a week and feels it mostly on the outside of her chest. Review of Systems Cardiovascular: COMPLAINS OF: Chest pain Except as stated in HPI: all other systems reviewed are Neg Mental Status Examination Appearance: Disheveled Consciousness: Alert Orientation: Person, Place Motor Activity: Abnormal gait Speech: Unremarkable Language: Adequate Fund of Knowledge: Inadequate Attention and Concentration: Adequate Memory: Unremarkable Mood: Appropriate Affect: Other (restricted but more reactive today) Thought Process & Associations: Intact, Loose associations Thought Content: Appropriate Hallucination Type: None Delusion Type: None Suicidal Ideation: No Suicidal Plan: No Suicidal Intention: No Homicidal Ideation: No Homicidal Plan: No Homicidal Intention: No Insight: Poor Judgment: Poor Results Vitals/IOs Vital Signs Date Time Temp Pulse Resp B/P (MAP) Pulse Ox O2 Delivery O2 Flow Rate FiO2 08/16/17 06:03 97.7 61 15 140/63 (88) 96 Intake and Output 08/16/17 08/16/17 08/17/17 08:00 16:00 00:00 Intake Total 600 ml Balance 600 ml Assessment & Plan Problem List: (1) Schizoaffective disorder ICD Codes: F25.9 - Schizoaffective disorder, unspecified Status: Acute Assessment & Plan Patient this time noted to have more organized thought process, was able to respond to questions adequately, better affect, more reactive during interview. Patient denies any perceptual services, reporting tolerating medications well. We will continue current treatment. Patient reporting chest pressure we will order EKG and troponins stat. Patient may not return to his home by DCF determined to be unsafe for her to do so at this time. Treatment team actively looking for referral to housing alternative. Continue to monitor mood and behavior. Discharge planning in progress Justification for Cont. Inpt. At risk for further decompensation if at lower level of care. Discharge Planning To be determined. Arslan Moreno MD August 16, 2017 10:12
--- NOTE | 2017-08-16 10:18 | HHI.PYPN ---
Subjective Remarks Patient seen for follow, chart reviewed. Discussion nursing staff reported the patient noted to be less confused, compliant medications, tangential at times. Patient was sitting hospital bed noted become cooperative. Patient states that she had a good weekend, reports her mood as also being "good", reports sleeping well, having been feeling very positive with her continued outpatient treatment. Patient states she was visited by her grandmother which went well. Patient today is alert and oriented 3, denying perceptual services or delusions at this time. Patient aware that she is currently continued for further medical treatment due to recent abnormality recent lab which she is currently receiving IV fluids and having had blood draw done this morning. Review of Systems Except as stated in HPI: all other systems reviewed are Neg Mental Status Examination Appearance: Appropriate Consciousness: Alert Orientation: Person, Place, Date/Time Motor Activity: Abnormal gait Speech: Unremarkable Language: Adequate Fund of Knowledge: Inadequate Attention and Concentration: Adequate Memory: Unremarkable Mood: Appropriate Affect: Appropriate Thought Process & Associations: Intact, Loose associations, Linear Thought Content: Appropriate Hallucination Type: None Delusion Type: None Suicidal Ideation: No Suicidal Plan: No Suicidal Intention: No Homicidal Ideation: No Homicidal Plan: No Homicidal Intention: No Insight: Fair Judgment: Impulsive Results Vitals/IOs Vital Signs Date Time Temp Pulse Resp B/P (MAP) Pulse Ox O2 Delivery O2 Flow Rate FiO2 08/16/17 06:03 97.7 61 15 140/63 (88) 96 Intake and Output 08/16/17 08/16/17 08/17/17 08:00 16:00 00:00 Intake Total 600 ml Balance 600 ml Assessment & Plan Problem List: (1) Schizoaffective disorder ICD Codes: F25.9 - Schizoaffective disorder, unspecified Status: Acute Assessment & Plan Patient this time noted with improvement in mood, no longer confused, although tangential at times but adequate responses during interview. Patient continues with medical workup due to recent lab abnormalities. Patient pending medical clearance and recommendations. Patient will likely for discharge once medically cleared. Patient also seen with counselor today a discharge plan currently in process. Justification for Cont. Inpt. At risk for further decompensation if at lower level of care. Discharge Planning Patient return back home with granddaughter. Arslan Moreno MD August 16, 2017 10:18
[2017-08-16 11:35] LABS: TROPONIN I LESS THAN 0.02 NG/ML (0.02-0.05)
--- NOTE | 2017-08-16 14:47 | PD.TTN ---
Patient Problems 1. Discharge planning 2. Medication compliance 3. Knowledge deficit 4. Lack of coping skills Progress Toward Goals Provider Present: Dr. Krystian Moreno Provider Input: 08/16/17 Patient is medication compliant, has been no behavioral problem on unit, complaining of chest pains. 08/11/17 patient has resufed medications but got a shot yesterday and appears alittle more cooperative today 08/09/2017': Medication adjustments, counselor will need to contact patient's adult children Nurse(s) Present: Sriram Kendall Nurse(s) Input: 08/16/17 Patient is medication compliant, cooperative. 08/11/17 pt is more cooperative and talkative today taking medications today 08/09/2017: patient requires redirect and coaching with meals, medication and mood. Psychiatric Counselors Present: Debbie Bergman LCSW, Gisela Ballard, [facility], DIANNA Fox Psych Therapist Input: 08/16/17 Patient presents cooperative, less confused wanting to go home with . Patient's was with her during lunch and was also stating he wanted to take patient home. Patient's speech was clear, organized, patient made poor eye contact. Patient has lack of insight into her situation. Patient is denying homicidal and sucidial ideation. 08/11/17 called DCF child protective services social worker stating she was passed on to ongoing field nurse case manager who will recommend for patient to be placed, left Vm with DCF, came to visit today and patient was not wanting him there and accusatory to , he left (see notes ) 08/09/2017: counselor will contact patient's NOK to discuss dc concerns and needs Group Spec/RT/OT/VERMA Present: Reza Garza, [facility] Group Spec/RT/OT/VERMA Input: 08/16/17 Patient does not tolerate groups well. 08/11/17 does not tolerate groups 08/09/2017: patient is unable to tolerate groups Documentation Scribe: Gisela Huang August 16, 2017 14:47
[2017-08-16 18:00] VITALS: BP 93/60; PULSE 83; RESP 15; TEMP 97.7; O2SAT 97
[2017-08-16] MEDS ORDERED: HALOPERIDOL 1 MG TAB PO SCH (21:00)
[2017-08-16] MEDS: HALOPERIDOL 2 MG TAB PO SCH (21:18)
[2017-08-17 06:00] VITALS: BP 145/77; PULSE 71; RESP 14; TEMP 97.3
--- NOTE | 2017-08-17 10:28 | HHI.PYPN ---
Subjective Remarks Patient seen for follow, chart reviewed. Discussion nursing staff reported the patient has been sleeping well, alert and oriented 3. Patient was found lying hospital bed noted B, cooperative. Patient noted to be conspicuous today. Patient states that she continues to have some chest pressure but reports it is still there hurts when she moves but less intense today. Patient reports sleeping well, no difficulty eating or drinking, states that she had visited by her yesterday which went well. Patient expresses wanting to return back home with but was explained to her that DCF had determined the patient may not return back to her residence that is deemed to be unsafe for her to live there. Review of Systems Except as stated in HPI: all other systems reviewed are Neg Mental Status Examination Appearance: Appropriate Consciousness: Alert Orientation: Person, Place, Date/Time Motor Activity: Abnormal gait Speech: Unremarkable Language: Adequate Fund of Knowledge: Inadequate Attention and Concentration: Adequate Memory: Unremarkable Mood: Appropriate Affect: Appropriate Thought Process & Associations: Intact, Loose associations, Linear Thought Content: Appropriate Hallucination Type: None Delusion Type: None Suicidal Ideation: No Suicidal Plan: No Suicidal Intention: No Homicidal Ideation: No Homicidal Plan: No Homicidal Intention: No Insight: Fair Judgment: Impulsive Results Labs labs reviewed Test 08/16/17 10:44 Total Creatine Kinase 47 U/L Troponin I LESS THAN 0.02 NG/ML Vitals/IOs Vital Signs Date Time Temp Pulse Resp B/P (MAP) Pulse Ox O2 Delivery O2 Flow Rate FiO2 08/17/17 06:00 97.3 71 14 145/77 (99) 08/16/17 18:00 97 Intake and Output 08/17/17 08/17/17 08/18/17 08:00 16:00 00:00 Intake Total 480 ml Balance 480 ml Assessment & Plan Problem List: (1) Schizoaffective disorder ICD Codes: F25.9 - Schizoaffective disorder, unspecified Status: Acute Assessment & Plan Patient at this time with improved mood, denying any perceptional disturbances, calm and cooperative with staff. Patient recent report of chest pressure, EKG and cardiac enzymes were negative for any abnormalities. Description of her chest pressure likely musculoskeletal in nature. Continue current treatment will continue monitor mood and behavior. treatment team currently looking for placement for patient that DCF has determined the patient may not return back to her residence that is been deemed to be unsafe. Patient's children also are involved in discharge planning and assisting. Justification for Cont. Inpt. At risk for further decompensation if at lower level of care Discharge Planning To be determined. Arslan Moreno MD August 17, 2017 10:28
[2017-08-17] MEDS: REMOVE OLD PATCH T-DERMAL SCH (10:38)
[2017-08-17] MEDS: NICOTINE 21 MG/24 HR PATCH T-DERMAL SCH (10:38)
[2017-08-17] MEDS: HALOPERIDOL LACTATE 5 MG/ML AMP IM SCH ×2 (10:38→21:00)
[2017-08-17] MEDS: HALOPERIDOL 5 MG TAB PO SCH (10:41)
--- NOTE | 2017-08-17 17:14 | EKG ---
Date Performed: 08/16/2017 Time Performed: 10:21:01 PTAGE: 82 years EKG: Sinus rhythm NORMAL ECG PREVIOUS TRACING : 02/06/2015 12.07 DOCTOR: Shahbaz Jenkins Interpretating Date/Time 08/17/2017 17:12:27
[2017-08-17 18:21] VITALS: BP 139/70; PULSE 68; RESP 16; TEMP 97.7; O2SAT 100
[2017-08-17] MEDS: HALOPERIDOL 2 MG TAB PO SCH (21:19)
[2017-08-17] MEDS: HALOPERIDOL 0.5 MG TAB PO SCH (21:19)
[2017-08-18 05:39] VITALS: BP 158/70; PULSE 51; RESP 16; TEMP 97.3; O2SAT 96
[2017-08-18] MEDS: NICOTINE 21 MG/24 HR PATCH T-DERMAL SCH (09:00)
[2017-08-18] MEDS: REMOVE OLD PATCH T-DERMAL SCH (09:00)
[2017-08-18] MEDS: HALOPERIDOL LACTATE 5 MG/ML AMP IM SCH ×2 (09:00→21:00)
[2017-08-18] MEDS: HALOPERIDOL 5 MG TAB PO SCH (09:11)
--- NOTE | 2017-08-18 11:05 | HHI.PYPN ---
Subjective Remarks Patient seen for follow, chart reviewed. Discussion nursing staff reported the patient slept well, denying having any further chest discomfort, compliant with medications. Patient states that she has been up and about walking on the unit , mood has been "okay", eating and drinking well, sleeping well, denying any SI or HI AVH or delusions. Patient's spoke about the weather and about her recent arrival to [place] in the past. Patient states she had been visited by her which went well yesterday. Review of Systems Except as stated in HPI: all other systems reviewed are Neg Mental Status Examination Appearance: Appropriate Consciousness: Alert Orientation: Person, Place, Date/Time Motor Activity: Abnormal gait Speech: Unremarkable Language: Adequate Fund of Knowledge: Inadequate Attention and Concentration: Adequate Memory: Unremarkable Mood: Appropriate Affect: Appropriate Thought Process & Associations: Intact, Loose associations, Linear Thought Content: Appropriate Hallucination Type: None Delusion Type: None Suicidal Ideation: No Suicidal Plan: No Suicidal Intention: No Homicidal Ideation: No Homicidal Plan: No Homicidal Intention: No Insight: Fair Judgment: Impulsive Results Vitals/IOs Vital Signs Date Time Temp Pulse Resp B/P (MAP) Pulse Ox O2 Delivery O2 Flow Rate FiO2 08/18/17 05:39 97.3 51 16 158/70 (99) 96 Intake and Output 08/18/17 08/18/17 08/19/17 08:00 16:00 00:00 Intake Total 960 ml Balance 960 ml Assessment & Plan Problem List: (1) Schizoaffective disorder ICD Codes: F25.9 - Schizoaffective disorder, unspecified Status: Acute Assessment & Plan She at this time compliant with medications reports stable mood, no psychotic or manic symptoms at this time no delusions. Patient awaiting confirmation of transfer to a nursing facility as DCF has deemed patient unable to return back to her home to be unsafe. Patient likely for discharge either today or tomorrow once finalization with retirement placement has been completed. Continue current treatment. Discharge planning in progress. Justification for Cont. Inpt. At risk for further decompensation if at lower level of care Discharge Planning Patient to be transferred to on an assisted living facility or nursing facility Arslan Moreno MD August 18, 2017 11:05
--- NOTE | 2017-08-18 15:00 | PD.TTN ---
Patient Problems 1. Discharge planning 2. Medication compliance 3. Knowledge deficit 4. Lack of coping skills Progress Toward Goals Provider Present: Dr. Krystian Moreno (08/17/17-Pt will hopefully be discharged today or tomorrow.) Provider Input: 08/16/17 Patient is medication compliant, has been no behavioral problem on unit, complaining of chest pains. 08/11/17 patient has resufed medications but got a shot yesterday and appears alittle more cooperative today 08/09/2017': Medication adjustments, counselor will need to contact patient's adult children Nurse(s) Present: Sriram Kendall Nurse(s) Input: 08/16/17 Patient is medication compliant, cooperative. 08/11/17 pt is more cooperative and talkative today taking medications today 08/09/2017: patient requires redirect and coaching with meals, medication and mood. Psychiatric Counselors Present: Debbie Bergman LCSW (08/17/17- Pt. is cooprative.) , Gisela Ballard, [facility], Janelle Cartwright [facility] Psych Therapist Input: 08/16/17 Patient presents cooperative, less confused wanting to go home with . Patient's was with her during lunch and was also stating he wanted to take patient home. Patient's speech was clear, organized, patient made poor eye contact. Patient has lack of insight into her situation. Patient is denying homicidal and sucidial ideation. 08/11/17 called DCF harvest worker field crop stating she was passed on to ongoing protective services case worker who will recommend for patient to be placed, left Vm with DCF, came to visit today and patient was not wanting him there and accusatory to , he left (see notes ) 08/09/2017: counselor will contact patient's NOK to discuss dc concerns and needs Group Spec/RT/OT/VERMA Present: Reza Garza OT (08/17/17- Pt. does not attend groups and requires redirection.) Group Spec/RT/OT/VERMA Input: 08/16/17 Patient does not tolerate groups well. 08/11/17 does not tolerate groups 08/09/2017: patient is unable to tolerate groups Documentation Scribe: Parish Fisher August 18, 2017 15:00
[2017-08-18 18:00] VITALS: BP 141/76; PULSE 61; RESP 16; TEMP 98; O2SAT 96
[2017-08-18] MEDS: ACETAMINOPHEN 325 MG TAB PO PRN (18:29)
[2017-08-18] MEDS: HALOPERIDOL 2 MG TAB PO SCH (21:02)
[2017-08-18] MEDS: HALOPERIDOL 0.5 MG TAB PO SCH (21:02)
[2017-08-19 05:08] VITALS: BP 173/79; PULSE 92; RESP 18; TEMP 97.6; O2SAT 95
[2017-08-19 05:22] VITALS: BP 130/70
[2017-08-19] MEDS: HALOPERIDOL LACTATE 5 MG/ML AMP IM SCH ×2 (09:00→21:00)
[2017-08-19] MEDS: HALOPERIDOL 5 MG TAB PO SCH (09:00)
[2017-08-19] MEDS: REMOVE OLD PATCH T-DERMAL SCH (09:00)
[2017-08-19] MEDS: NICOTINE 21 MG/24 HR PATCH T-DERMAL SCH (09:00)
--- NOTE | 2017-08-19 16:28 | HHI.PYPN ---
Subjective Remarks Patient seen for follow, chart reviewed. Discussion nursing staff reported the patient was noted to be somewhat confused last evening, with disturbed sleep last evening, ambulating on the unit, had visited with her . Patient was found lying hospital bed noted, cooperative. Patient states that she had difficulty sleeping last evening due to a disruptive patient on the unit but reports her mood as being "good". Patient denies any perceptional services or delusions at this time. Patient is reporting having some constipation and requesting prune juice. Patient reports having visited by her which went well. Review of Systems Except as stated in HPI: all other systems reviewed are Neg Mental Status Examination Appearance: Appropriate Consciousness: Alert Orientation: Person, Place, Date/Time Motor Activity: Abnormal gait Speech: Unremarkable Language: Adequate Fund of Knowledge: Inadequate Attention and Concentration: Adequate Memory: Unremarkable Mood: Appropriate Affect: Appropriate Thought Process & Associations: Intact, Linear Thought Content: Appropriate Hallucination Type: None Delusion Type: None Suicidal Ideation: No Suicidal Plan: No Suicidal Intention: No Homicidal Ideation: No Homicidal Plan: No Homicidal Intention: No Insight: Fair Judgment: Impulsive Results Vitals/IOs Vital Signs Date Time Temp Pulse Resp B/P (MAP) Pulse Ox O2 Delivery O2 Flow Rate FiO2 08/19/17 05:22 130/70 (90) 08/19/17 05:08 97.6 92 18 95 Intake and Output 08/19/17 08/19/17 08/20/17 08:00 16:00 00:00 Intake Total 480 ml Balance 480 ml Assessment & Plan Problem List: (1) Schizoaffective disorder ICD Codes: F25.9 - Schizoaffective disorder, unspecified Status: Acute Assessment & Plan Patient this time tolerating treatment well, no active psychotic symptoms, stable mood, currently awaiting placement to a nursing facility as patient cannot return back to her home as deemed by DCF to be unsafe. We will continue current treatment. Will continue monitor mood and behavior. Discharge planning in progress. Justification for Cont. Inpt. At risk for further decompensation if at lower level of care. Arslan Moreno MD August 19, 2017 16:28
[2017-08-19 18:45] VITALS: BP 122/58; PULSE 65; RESP 16; TEMP 98.2; O2SAT 94
[2017-08-19] MEDS: HALOPERIDOL 2 MG TAB PO SCH (21:25)
[2017-08-19] MEDS: HALOPERIDOL 0.5 MG TAB PO SCH (21:25)
[2017-08-20 06:00] VITALS: BP 154/70; PULSE 63; RESP 16; TEMP 97.7; O2SAT 94
[2017-08-20] MEDS ORDERED: HALO5TAB PO (09:55)
[2017-08-20] MEDS ORDERED: HALO2TAB PO (09:55)
[2017-08-20] MEDS ORDERED: HALO0.5T PO (09:55)
--- NOTE | 2017-08-20 09:56 | HHI.DS ---
Psychiatry Discharge Summary Inpatient Psychiatric care?: Yes Advance Directive: No Mental Health AdvanceDirective: No Health Care Proxy: No Admission Admission Date Aug 05, 2017 at 09:15 Admission Diagnosis: (1) Schizoaffective disorder ICD Code: F25.9 - Schizoaffective disorder, unspecified Brief History The patient is 82-year-old woman, domiciled in [place] with her , mother of 4 kids, with psychiatric history of schizoaffective disorder , multiple psychiatric hospitalizations, she was hospitalized here in [place] in 2014, the documentation was reviewed, who presents as ExPARTE. According to the report she refuses to take her medication and refuses to continue therapy. He also states that she is very angry with her members filling of the report., I am assuming with her . She refuses any medical attention and gets worse every day. She does not take care of herself and will often urinate on the floor. She also throws various items around in the kitchen is a disaster. On my examination the patient is alert and oriented. She is cachectic appearing and disheveled. She is hard to understand because she has no teeth. She said she does not want to eat anymore or take care of herself because she just wants to give up. She says "he" does not do anything or cook or help. I am assuming she is talking about her . In the psychiatric evaluation today the patient is calm, poorly cooperative, selectively mute. The patient reports that she does not know what is the reason she is here. She does say that her is planning to get her out of the house. At times the patient becomes incoherent, very difficult to understand, seems to be kind of disorganized. She denies suicidal enemas ideation, she denies visual and auditory hallucinations. The patient is fully oriented 3. She refuses to talk about her recent psychiatric history, the medication that she is supposed to be taking. I try to get collateral information from her , the phone listed is [phone], nobody is answering. The patient denies the use of alcohol and illegal drugs. 08/06/17 -second opinion Patient is an 82-year-old woman, domiciled with , has 4 children, with a past psychiatric history of schizoaffective disorder, previous psychiatric admissions, last seen here at [place] in 2014 was brought into the ED under ex parte due to concerns of self neglect,, refusing medical attention, decreased nutritional intake and wanting to give up which patient was admitted to the patient psychiatry for further evaluation and management. Patient was noted to be superficially cooperative, and become irritable during interview as well. Patient is alert and oriented 3. Patient states that she had recent arguments with her stated that he did not get along and reported that she did not want to return back to him. When attempted to pass further upon her living situation, regarding her self neglect she was unable to provide adequate comprehensible responses noted to be tangential, loosely associations and disorganized during interview. When speaking about prior treatment and medications patient at it mother was refusing any medication stating that she does not need them. Collateral information obtained by a counselor/therapist from had reported that patient had not been eating well, had been refusing medications for years and states that he does not want her to return back to the home. When asked about how they were obtaining her meals patient's was noted to be circumstantial and not providing adequate information as to their current living situation which concerns of their ability to care for themselves is concerning. Treatment he will contact DCFS to investigate into the ability of patient and to care for themselves. Results Blood Pressure 154 / 70 Vital Signs Date Time Temp Pulse Resp B/P (MAP) Pulse Ox O2 Delivery O2 Flow Rate FiO2 08/20/17 06:00 97.7 63 16 154/70 (98) 94 Laboratory Results Test 08/06/17 06:02 Cholesterol Level 159 MG/DL (120-200) HDL Cholesterol 74.8 MG/DL (40.0-60.0) Hemoglobin A1c 5.2 % (4.3-6.0) LDL Cholesterol 70 MG/DL (0-99) Triglycerides Level 72 MG/DL (42-150) Imaging Last Impressions Shoulder X-Ray 08/10/17 0000 Signed Impressions: Service Date/Time: Thursday, August 10, 2017 11:49 - CONCLUSION: Osteopenia with no acute fracture or malalignment. Onel Mccormack MD Hip and Pelvis X-Ray 08/10/17 0000 Signed Impressions: Service Date/Time: Thursday, August 10, 2017 11:49 - CONCLUSION: No acute fracture or malalignment. Onel Mccormack MD Head CT 08/10/17 0000 Signed Impressions: Service Date/Time: Thursday, August 10, 2017 10:10 - CONCLUSION: 1. No acute findings in the brain. 2. Right occipital scalp swelling. No skull fracture seen. Caleb Heredia MD Brain MRI 08/10/17 0000 Signed Impressions: Service Date/Time: Thursday, August 10, 2017 18:33 - CONCLUSION: 1. Mild to moderate chronic white matter ischemic changes. No acute findings. No recent infarct or mass effect. Krystian Mullins MD Medications Approp Antipsych med options 1 - Minimum of three failed multiple trials of monotherapy. 2 - Documented plan to taper to monotherapy due to previous use of multiple meds OR cross-taper in progress at D/C. 3 - Documentation of augmentation of Clozapine. 4 - Justification other than those listed in allowable values 1-3, document here : Discharge Pt Condition on Discharge: Stable Discharge Disposition: ACLF/ASSISTED Discharge Instructions Diet Instructions: Heart Healthy Diet Activities you can perform: Weight Bearing as Jeanne Scheduled Appointment: Facility provider Appointment Date: August 23, 2017 Appointment Time: 08:30am Mental Status Examination Appearance: Appropriate Consciousness: Alert Orientation: Person, Place, Date/Time Motor Activity: Abnormal gait Speech: Unremarkable Language: Adequate Fund of Knowledge: Inadequate Attention and Concentration: Adequate Memory: Unremarkable Mood: Appropriate Affect: Appropriate Thought Process & Associations: Intact, Linear Thought Content: Appropriate Hallucination Type: None Delusion Type: None Suicidal Ideation: No Suicidal Plan: No Suicidal Intention: No Homicidal Ideation: No Homicidal Plan: No Homicidal Intention: No Insight: Fair Judgment: Impulsive Discharge/Advance Care Plan Health Problems: (1) Schizoaffective disorder Goals to promote your health * To prevent worsening of your condition and complications * To maintain your health at the optimal level Directions to meet your goals Take your medications as prescribed Follow your dietary instruction Follow activity as directed Keep your appointments as scheduled Take your immunizations and boosters as scheduled If your symptoms worsen call your PCP, if no PCP go to Urgent Care Center or Emergency Room For 24/ questions related to your inpatient stay or results of tests pending at discharge, please contact Dr. Arslan Moreno at Smoking is Dangerous to Your Health. Avoid second hand smoking Arslan Moreno MD August 20, 2017 09:56
[2017-08-20] MEDS: REMOVE OLD PATCH T-DERMAL SCH (10:03)
[2017-08-20] MEDS: HALOPERIDOL 5 MG TAB PO SCH (10:03)
[2017-08-20] MEDS: NICOTINE 21 MG/24 HR PATCH T-DERMAL SCH (10:03)
[2017-08-20] MEDS: HALOPERIDOL LACTATE 5 MG/ML AMP IM SCH (10:03)
== END 2017-08-20 12:29 | DRG 885 ==
LOC: NEPD 16:42 → NEDA 08-05 09:15 → H4EA 08-05 11:00 → H250 08-09 11:45 → H4EA 08-13 11:39
PROVIDERS: ADMIT Student in an Organized Health Care Education/Training Program; ATTEND Student in an Organized Health Care Education/Training Program
DX: F25.9 Schizoaffective disorder, unspecified (principal); R64 Cachexia; E72.20 Disorder of urea cycle metabolism, unspecified; Z91.14 Patient's other noncompliance with medication regimen; I10 Essential (primary) hypertension; K08.9 Disorder of teeth and supporting structures, unspecified; S00.03XA Contusion of scalp, initial encounter; Z68.1 Body mass index [BMI] 19.9 or less, adult; W19.XXXA Unspecified fall, initial encounter; R07.89 Other chest pain; Z72.0 Tobacco use; Z87.440 Personal history of urinary (tract) infections
CPT/HCPCS: 70450; 70551; 73030; 73502; 80048; 80053; 80061; 80307; 81001; 82140; 82550; 83036; 84443; 84484; 85025; 93005; 99285; J1630; J2060

== ENCOUNTER 2017-11-22 11:35 | Inpatient (IN) ==
[2017-11-22] MEDS ORDERED: Morphine Inj 4 MG/ML Vial IV.PUSH ONE (11:48)
--- NOTE | 2017-11-22 11:58 | ED ---
HPI General Chief Complaint: Extremity Injury, Lower Stated Complaint: Fall Time Seen by Provider: 11/22/17 11:37 Source: patient, EMS and RN notes reviewed Mode of arrival: EMS Limitations: no limitations and other (psychiatric patient) History of Present Illness HPI Narrative: 82-year-old female that presents to the ED via [facility] for evaluation of what appears to be left hip pain. Allegedly per report I was given by the nurse patient had a fall about a week ago. Apparently she has been walking on it except for the past today she has not been able to walk on it. He apparently had an x-ray today did show acute fracture and they recommended that she comes here for evaluation. Patient denies any recent injuries. She does have a history of multiple falls. She has history of bipolar, hypertension, schizoaffective disorder. Takes medications for this. Denies any prior injuries. No head injury loss of consciousness. No blood thinner use. She states that currently her pain is 4 out of 10 but gets worse with any movement. She does have some shortening of the left leg compared to the right. Denies any other medical issues at this time. Related Data Home Medications Medication Instructions Recorded Confirmed acetaminophen [Tylenol Extra 500 mg PO Q6H PRN 11/22/17 11/22/17 Strength] alprazolam [Xanax] 0.5 mg PO BID 11/22/17 11/22/17 haloperidol 2.5 mg PO TID 11/22/17 11/22/17 haloperidol 4.5 mg PO HS 11/22/17 11/22/17 haloperidol 4.5 mg PO HS 11/22/17 11/22/17 lisinopril 5 mg PO DAILY 11/22/17 11/22/17 lorazepam [Ativan] 0.5 mg IM BID PRN 11/22/17 11/22/17 meloxicam [Mobic] 7.5 mg PO DAILY 11/22/17 11/22/17 ziprasidone HCl [Geodon] 20 mg PO DAILY 11/22/17 11/22/17 Allergies Allergy/AdvReac Type Severity Reaction Status Date / Time No Known Allergies Allergy Unverified 11/22/17 11:54 Review of Systems ROS: all other systems reviewed are negative PMFSH Medical History Medical History Anxiety (Acute) Frequent falls (Acute) HBP (high blood pressure) (Acute) Schizophrenic disorder (Acute) Surgical History Surgical History No history of previous surgery (Acute) Social History Social History Substance History: No History of Abuse Second Hand Smoke Exposure: No Smoking Status: Former smoker Tobacco Type: Cigarettes How Often Do You Have a Drink Containing Alcohol: Never Recent Travel in [facility] within the Last 8 Weeks: No Recent Out of Country Travel within the Last 8 Weeks: No Exam Narrative Exam Narrative: GENERAL: Well-appearing but somewhat anorexic SKIN: Focused skin assessment warm/dry. HEAD: Atraumatic. Normocephalic. EYES: Pupils equal and round. No scleral icterus. No injection or drainage. ENT: No nasal bleeding or discharge. Mucous membranes pink and moist. Tongue is midline. No uvula deviation. NECK: Trachea midline. No JVD. CARDIOVASCULAR: Regular rate and rhythm. No murmur appreciated. RESPIRATORY: No accessory muscle use. Clear to auscultation. Breath sounds equal bilaterally. GASTROINTESTINAL: Abdomen soft, non-tender, nondistended. Hepatic and splenic margins not palpable. MUSCULOSKELETAL: No obvious deformities. No clubbing. No cyanosis. No edema. Full range of motion of all extremities with exception of the left hip were patient has shortening and a lot of pain with any movement. 2+ pulses bilaterally. Sensation intact bilaterally. No obvious lumbar, thoracic, cervical spine tenderness to palpation. Full range of motion of the upper extremities. Sensation appears to be intact. NEUROLOGICAL: Awake and alert. No obvious cranial nerve deficits. Motor grossly within normal limits. Normal speech. PSYCHIATRIC: Appropriate mood and affect; insight and judgment normal. Course Initial Documented Vital Signs Temperature 97.8 F 11/22/17 11:45 Pulse Rate 85 11/22/17 11:45 Respiratory Rate 16 11/22/17 11:45 Blood Pressure 137/68 11/22/17 11:45 Pulse Oximetry 96 11/22/17 11:45 Last Documented Vital Signs Temperature 97.8 F 11/22/17 11:45 Pulse Rate 85 11/22/17 11:45 Respiratory Rate 17 11/22/17 12:24 Blood Pressure 137/68 11/22/17 11:45 Pulse Oximetry 96 11/22/17 11:45 Medical Decision Making MDM Narrative Medical decision making narrative: 82-year-old female that presents to the ED for evaluation of left hip pain. Patient was properly examined and was found to have signs and symptoms consistent appears to be possible fracture. X-ray was done on the outside facility and show acute fracture on the report. No disc or imaging was sent. New x-rays will be ordered here for or surgeon to evaluate. Labs and imaging for preop were ordered. Patient understands that patient will require admission for further evaluation and likely treatment of her hip fracture. She agrees with this. Pain medication and antiemetics were ordered for her. Labs and imaging showed fracture, otherwise unremarcable. Patient told of results and need for admission for possible surgery. She agrees with this. Case discussed with my attending who agrees with plan. Patient admitted to Dr Tomas who agreed to admission. Dr Cano agreed to consult to his service, no surgery today. Differential Diagnosis Differential Diagnosis: Hip fracture versus bruise versus contusion Medical Records Medical records reviewed: Yes I reviewed the patient's medical records. Lab Data Lab results reviewed: Yes I reviewed the patient's lab results. Result diagrams: 11/22/17 12:00 11/22/17 12:00 Lab Results 11/22/17 11/22/17 11/22/17 Range/Units 12:00 12:00 12:00 WBC 11.6 H (4.0-11.0) th/mm3 RBC 4.37 (4.00-5.30) mil/mm3 Hgb 14.1 (11.6-15.3) gm/dL Hct 42.7 (35.0-46.0) % MCV 97.7 (80.0-100.0) fL MCH 32.3 (27.0-34.0) pg MCHC 33.0 (32.0-36.0) % RDW 14.5 (11.6-17.2) % Plt Count 505 H (150-450) th/mm3 MPV 7.7 (7.0-11.0) fL Neut % (Auto) 81.8 H (16.0-70.0) % Lymph % (Auto) 10.0 (9.0-44.0) % [place] % (Auto) 5.9 (0.0-8.0) % Eos % (Auto) 1.8 (0.0-4.0) % Baso % (Auto) 0.5 (0.0-2.0) % Neut # (Auto) 9.5 H (1.8-7.7) th/mm3 Lymph # (Auto) 1.2 (1.0-4.8) th/mm3 [place] # (Auto) 0.7 (0.0-0.9) th/mm3 Eos # (Auto) 0.2 (0.0-0.4) th/mm3 Baso # (Auto) 0.1 (0.0-0.2) th/mm3 WBC Differential . Differential Comment Auto diff final PT 10.3 (9.8-11.6) sec INR 1.0 Ratio APTT 28.9 (24.3-30.1) sec Sodium 137 (136-145) meq/L Potassium 4.0 (3.5-5.1) meq/L Chloride 101 (98-107) meq/L Carbon Dioxide 30.0 (21.0-32.0) meq/L Anion Gap 6 (5-15) meq/L BUN 15 (7-18) mg/dL Creatinine 0.39 L (0.50-1.00) mg/dL Estimated GFR Greater than 89 (>89) mL/min Random Glucose 103 (74-106) mg/dL Calcium 8.7 (8.5-10.1) mg/dL Total Bilirubin 0.3 (0.2-1.0) mg/dL AST 21 (15-37) U/L ALT 23 (10-53) U/L Alkaline Phosphatase 156 H (45-117) U/L Total Protein 6.2 L (6.4-8.2) g/dL Albumin 2.5 L (3.4-5.0) g/dL Urine Color (Yellw/Straw) Urine Clarity (Clear) Urine pH (5.0-8.5) Ur Specific [place] (1.002-1.035) Urine Protein (Neg-Trace) mg/dL Urine Glucose (UA) (Negative) mg/dL Urine Ketones (Negative) mg/dL Urine Occult Blood (Negative) Urine Nitrate (Negative) Urine Bilirubin (Negative) Urine Urobilinogen (Less than 2) mg/dL Ur Leukocyte Esterase (Negative) Urine RBC (0-3) /hpf Urine WBC (0-5) /hpf Ur Squamous Epith Cells (0-5) /hpf Ur Transition Epith Cell (None) /hpf Amorphous Sediment (None) /hpf Urine Bacteria (None) /hpf Urine Mucus (Occasional) /lpf Micro UA Comment Urine Culture Comments 11/22/17 Range/Units 12:40 WBC (4.0-11.0) th/mm3 RBC (4.00-5.30) mil/mm3 Hgb (11.6-15.3) gm/dL Hct (35.0-46.0) % MCV (80.0-100.0) fL MCH (27.0-34.0) pg MCHC (32.0-36.0) % RDW (11.6-17.2) % Plt Count (150-450) th/mm3 MPV (7.0-11.0) fL Neut % (Auto) (16.0-70.0) % Lymph % (Auto) (9.0-44.0) % [place] % (Auto) (0.0-8.0) % Eos % (Auto) (0.0-4.0) % Baso % (Auto) (0.0-2.0) % Neut # (Auto) (1.8-7.7) th/mm3 Lymph # (Auto) (1.0-4.8) th/mm3 [place] # (Auto) (0.0-0.9) th/mm3 Eos # (Auto) (0.0-0.4) th/mm3 Baso # (Auto) (0.0-0.2) th/mm3 WBC Differential Differential Comment PT (9.8-11.6) sec INR Ratio APTT (24.3-30.1) sec Sodium (136-145) meq/L Potassium (3.5-5.1) meq/L Chloride (98-107) meq/L Carbon Dioxide (21.0-32.0) meq/L Anion Gap (5-15) meq/L BUN (7-18) mg/dL Creatinine (0.50-1.00) mg/dL Estimated GFR (>89) mL/min Random Glucose (74-106) mg/dL Calcium (8.5-10.1) mg/dL Total Bilirubin (0.2-1.0) mg/dL AST (15-37) U/L ALT (10-53) U/L Alkaline Phosphatase (45-117) U/L Total Protein (6.4-8.2) g/dL Albumin (3.4-5.0) g/dL Urine Color Yellow (Yellw/Straw) Urine Clarity Cloudy H (Clear) Urine pH 7.0 (5.0-8.5) Ur Specific [place] 1.013 (1.002-1.035) Urine Protein Negative (Neg-Trace) mg/dL Urine Glucose (UA) Negative (Negative) mg/dL Urine Ketones Negative (Negative) mg/dL Urine Occult Blood Negative (Negative) Urine Nitrate Negative (Negative) Urine Bilirubin Negative (Negative) Urine Urobilinogen 4 or greater (Less than 2) mg/dL Ur Leukocyte Esterase Moderate H (Negative) Urine RBC 3 (0-3) /hpf Urine WBC 19 H (0-5) /hpf Ur Squamous Epith Cells 14 (0-5) /hpf Ur Transition Epith Cell 2 (None) /hpf Amorphous Sediment Occasional H (None) /hpf Urine Bacteria Occasional H (None) /hpf Urine Mucus Few H (Occasional) /lpf Micro UA Comment Culture indicated Urine Culture Comments Culture indicated Imaging Data Attestation: I personally reviewed and interpreted this imaging study as follows : Radiologist's impression: Chest X-Ray 11/22/17 11:48 CONCLUSION: No acute findings. Hip X-Ray 11/22/17 12:10 CONCLUSION: Displaced subcapital left femoral neck fracture. Discharge Plan Discharge Disposition Patient Disposition: 30 Still Patient Discharge Details Diagnosis: Closed hip fracture Physicians Team ED Provider: Michelle Saldivar ED Midlevel Provider: David Cano Primary Care Provider: UNKNOWN, Attending Provider: Wayne Crockett Status ED Status: Admitted Patient
[2017-11-22 12:22] LABS: Baso # (Auto) 0.1 th/mm3 (0.0-0.2); Baso % (Auto) 0.5 % (0.0-2.0); Eos # (Auto) 0.2 th/mm3 (0.0-0.4); Eos % (Auto) 1.8 % (0.0-4.0); Hematocrit 42.7 % (35.0-46.0); Hemoglobin 14.1 gm/dL (11.6-15.3); Lymph # (Auto) 1.2 th/mm3 (1.0-4.8); Mean Corpuscular Hemoglobin 32.3 pg (27.0-34.0); Mean Corpuscular Volume 97.7 fL (80.0-100.0); Mean Platelet Volume 7.7 fL (7.0-11.0); Mono # (Auto) 0.7 th/mm3 (0.0-0.9); Mono % (Auto) 5.9 % (0.0-8.0); Neut # (Auto) 9.5 th/mm3 (1.8-7.7); Neut % (Auto) 81.8 % (16.0-70.0); Platelet Count 505 th/mm3 (150-450); Red Blood Count 4.37 mil/mm3 (4.00-5.30); Red Cell Distribution Width 14.5 % (11.6-17.2); White Blood Count 11.6 th/mm3 (4.0-11.0)
[2017-11-22 12:36] LABS: Activated Partial Thrombo Time 28.9 sec (24.3-30.1); Prothrombin Time 10.3 sec (9.8-11.6)
[2017-11-22 12:45] LABS: Alanine Aminotransferase 23 U/L (10-53); Albumin 2.5 g/dL (3.4-5.0); Anion Gap 6 meq/L (5-15); Aspartate Aminotransferase 21 U/L (15-37); Blood Urea Nitrogen 15 mg/dL (7-18); Calcium 8.7 mg/dL (8.5-10.1); Chloride 101 meq/L (98-107); Glomerular Filtration Rate Greater Than 89 mL/min (>89); Glucose,Random 103 mg/dL (74-106); Sodium 137 meq/L (136-145)
[2017-11-22 12:47] LABS: Alkaline Phosphatase 156 U/L (45-117); Total Protein 6.2 g/dL (6.4-8.2)
--- NOTE | 2017-11-22 12:53 | XR ---
EXAM DATE: 11/22/2017 12:41 PM EDT AGE/SEX: 82 years / Female INDICATIONS: Fell one week ago, left hip pain CLINICAL DATA: This is the patient's initial encounter. Patient reports that signs and symptoms have been present for 1 week and indicates a pain score of Nonresponsive. MEDICAL/SURGICAL HISTORY: Non-responsive. Non-responsive. COMPARISON: No prior exams available for comparison. FINDINGS: No focal consolidation or significant effusion. Tortuous aorta. No pneumothorax. Heart size enlarged. Moderate degenerative change in the spine. CONCLUSION: No acute findings. Electronically signed by: Krystian Mullins MD 11/22/2017 12:52 PM EDT
--- NOTE | 2017-11-22 12:54 | XR ---
EXAM DATE: 11/22/2017 12:44 PM EDT AGE/SEX: 82 years / Female INDICATIONS: Fell one week ago, left hip pain CLINICAL DATA: This is the patient's initial encounter. Patient reports that signs and symptoms have been present for 1 week and indicates a pain score of Nonresponsive. MEDICAL/SURGICAL HISTORY: Non-responsive. Non-responsive. COMPARISON: No prior exams available for comparison. FINDINGS: There is a subcapital displaced left femoral neck fracture with foreshortening. Surrounding soft tiss ue calcifications noted. Bones appear osteopenic. CONCLUSION: Displaced subcapital left femoral neck fracture. Electronically signed by: Krystian Mullins MD 11/22/2017 12:53 PM EDT
[2017-11-22 13:09] LABS: Amorphous Sediment,Urine Occasional /hpf; Bacteria,Urine Occasional /hpf; Bilirubin,Urine Negative (Negative); Clarity,Urine Cloudy (Clear); Color,Urine Yellow (Yellw/Straw); Glucose,Urine (UA) Negative (Negative); Leukocyte Esterase,Urine Moderate (Negative); Mucus,Urine Few /lpf (Occasional); Nitrite,Urine Negative (Negative); Specific Gravity,Urine 1.013 (1.002-1.035); Squamous Epithelial Cell,Urine 14 /hpf (0-5); Transitional Epi Cells,Urine 2 /hpf; Urobilinogen,Urine 4 or Greater mg/dL (Less than 2)
[2017-11-22] MEDS ORDERED: Morphine Inj 4 MG/ML Vial IV.PUSH PRN (13:26)
--- NOTE | 2017-11-22 13:36 | P.HPIM ---
History of Present Illness Primary Care Physician: UNKNOWN Chief Complaint: left hip pain History of Present Illness: patient is a 82 y/o female with history of hypertension and schizophrenia who was brought to ER with left hip pain. patient is not a good historian. but she says that she had a fall about a week ago. apparently she hasn't been able to walk the past couple of days and the pain to the left hip has been getting worse. she had XR done which showed left hip fracture for which she was brought to ER. at the time of my evaluation she was fairly comfortable. Inpatient Certification: I certify that the inpatient services were ordered in accordance with Medicare regulations governing the order. This includes certification that hospital inpatient services are reasonable and necessary and in the case of services not specified as inpatient-only under 42 CFR 419.22(n), that they are appropriately provided as inpatient services in accordance to with the 2-midnight benchmark under 43 CFR 412.3(e) Estimated Total Length of Stay (Days): 3 Plans for Post Hospital Care: SNF Review of Systems All other systems reviewed negative except as stated [facility] - History History Provided By: Patient - Medical History Medical History: Medical History (Last Reviewed 11/22/17 @ 22:22 by Traci Gu RN) Anxiety Frequent falls HBP (high blood pressure) Schizophrenic disorder - Surgical History Surgical History: Surgical History (Last Reviewed 11/22/17 @ 22:22 by Traci Gu RN) No history of previous surgery - Tobacco History Second Hand Smoke Exposure: No Tobacco Use In Past 30 Days: No (QUIT 20 YEARS AGO) Smoking Status: Former smoker Tobacco Type: Cigarettes - Alcohol History How Often Do You Have a Drink Containing Alcohol: Never - Substance Use History Substance History: No History of Abuse - Travel History Recent Travel in the [place] Within the Last 8 Weeks: No Recent Travel Out of the Country Within the Last 8 Weeks: No - Immunization History Tetanus Immunization: >5 Years Hx Influenza Vaccine This Season: Yes Medications and Allergies Active Medications: Active Medications Hydrocodone Bitart/Acetaminophen ([place] 5/325) 1 tab PO Q4H PRN PRN Reason: pain 1-5 Hydrocodone Bitart/Acetaminophen ([place] 5/325) 2 tab PO Q4H PRN PRN Reason: pain 6-10 Alprazolam (Xanax) 0.5 mg PO BID DOMONIQUE Haloperidol (Haldol) 4.5 mg PO HS DOMONIQUE Haloperidol (Haldol) 2.5 mg PO TID DOMONIQUE Haloperidol (Haldol) 4.5 mg PO HS [facility] Ceftriaxone Sodium 1,000 mg/ (Sodium Chloride) 100 mls @ 200 mls/hr IV.SIG Q24H [facility] Sodium Chloride (Ns Inj) 1,000 mls @ 75 mls/hr IV.CONT .[id number] [facility] Lisinopril (Prinivil) 5 mg PO DAILY [facility] Morphine Sulfate (Morphine Inj) 2 mg IV.PUSH Q4H PRN PRN Reason: BREAKTHROUGH PAIN Ziprasidone (Geodon) 20 mg PO DAILY [facility] Allergies Allergy/AdvReac Type Severity Reaction Status Date / Time No Known Allergies Allergy Verified 11/22/17 22:22 Home Medications Medication Instructions Recorded Confirmed Type acetaminophen [Tylenol Extra 500 mg PO Q6H PRN 11/22/17 11/22/17 History Strength] alprazolam [Xanax] 0.5 mg PO BID 11/22/17 11/22/17 History haloperidol 2.5 mg PO TID 11/22/17 11/22/17 History haloperidol 4.5 mg PO HS 11/22/17 11/22/17 History haloperidol 4.5 mg PO HS 11/22/17 11/22/17 History lisinopril 5 mg PO DAILY 11/22/17 11/22/17 History lorazepam [Ativan] 0.5 mg IM BID PRN 11/22/17 11/22/17 History meloxicam [Mobic] 7.5 mg PO DAILY 11/22/17 11/22/17 History ziprasidone HCl [Geodon] 20 mg PO DAILY 11/22/17 11/22/17 History Exam Vital signs: Vital Signs 11/22/17 11:45 11/22/17 12:24 Temperature 97.8 F Pulse Rate 85 Respiratory Rate 16 17 Blood Pressure 137/68 Pulse Oximetry 96 Intake & Output 11/21/17 11/22/17 11/22/17 18:59 06:59 18:59 Weight 68.039 kg - Constitutional no acute distress - Routine HEENT Exam Head: Present: normocephalic - Routine Neck Exam Present: full ROM - Routine Respiratory Exam Present: CTA bilaterally - Routine Cardiovascular Exam Present: RRR - Routine Abdominal Exam Present: soft - Routine Extremities Exam Comments: no pedal edema. - Routine Neurological Exam Present: alert, oriented X3 Results - Labs CBC & Chem 7: 11/22/17 12:00 11/22/17 12:00 Labs: Short CBC 11/22/17 Range/Units 12:00 WBC 11.6 H (4.0-11.0) th/mm3 Hgb 14.1 (11.6-15.3) gm/dL Hct 42.7 (35.0-46.0) % Plt Count 505 H (150-450) th/mm3 BMP 11/22/17 12:00 Sodium 137 Potassium 4.0 Chloride 101 Carbon Dioxide 30.0 BUN 15 Creatinine 0.39 L Calcium 8.7 Liver Function 11/22/17 Range/Units 12:00 Total Bilirubin 0.3 (0.2-1.0) mg/dL AST 21 (15-37) U/L ALT 23 (10-53) U/L Alkaline Phosphatase 156 H (45-117) U/L Albumin 2.5 L (3.4-5.0) g/dL Urine 11/22/17 Range/Units 12:40 Urine Color Yellow (Yellw/Straw) Urine Clarity Cloudy H (Clear) Urine pH 7.0 (5.0-8.5) Ur Specific [place] 1.013 (1.002-1.035) Urine Protein Negative (Neg-Trace) mg/dL Urine Glucose (UA) Negative (Negative) mg/dL - Imaging Impressions Chest X-Ray 11/22/17 11:48 CONCLUSION: No acute findings. Hip X-Ray 11/22/17 12:10 CONCLUSION: Displaced subcapital left femoral neck fracture. Caprini VTE Risk Assessment Caprini VTE Risk Assessment: Moderate/High Risk (score >= 2) Caprini Risk Assessment Model: Point Value = 1 Point Value = 2 Point Value = 3 Point Value = 5 Age 41-60 Minor surgery BMI > 25 kg/m2 Swollen legs Varicose veins or History of unexplained or recurrent spontaneous Oral contraceptives or hormone replacement Sepsis (< 1 month) Serious lung disease, including pneumonia (< 1 month) Abnormal pulmonary function Acute myocardial infarction Congestive heart failure (< 1 month) History of inflammatory bowel disease Medical patient at bed rest Age 61-74 Arthroscopic surgery Major open surgery (> 45 min) Laparoscopic surgery (> 45 min) Malignancy Confined to bed (> 72 hours) Immobilizing plaster cast Central venous access Age >= 75 History of VTE Family history of VTE Factor V Leiden Prothrombin [id number] Lupus anticoagulant Anticardiolipin antibodies Elevated serum homocysteine Heparin-induced thrombocytopenia Other congenital or acquired thrombophilia Stroke (< 1 month) Elective arthroplasty Hip, pelvis, or leg fracture Acute spinal cord injury (< 1 month) Prophylaxis Regimen: Total Risk Factor Score Risk Level Prophylaxis Regimen 0-1 Low Early ambulation 2 Moderate Order ONE of the following: *Sequential Compression Device (SCD) *Heparin 5000 units SQ BID 3-4 Higher Order ONE of the following medications: *Heparin 5000 units SQ TID *Enoxaparin/Lovenox 40 mg SQ daily (WT < 150 kg, CrCl > 30 mL/min) *Enoxaparin/Lovenox 30 mg SQ daily (WT < 150 kg, CrCl > 10-29 mL/min) *Enoxaparin/Lovenox 30 mg SQ BID (WT < 150 kg, CrCl > 30 mL/min) AND/OR *Sequential Compression Device (SCD) 5 or more Highest Order ONE of the following medications: *Heparin 5000 units SQ TID (Preferred with Epidurals) *Enoxaparin/Lovenox 40 mg SQ daily (WT < 150 kg, CrCl > 30 mL/min) *Enoxaparin/Lovenox 30 mg SQ daily (WT < 150 kg, CrCl > 10-29 mL/min) *Enoxaparin/Lovenox 30 mg SQ BID (WT < 150 kg, CrCl > 30 mL/min) AND *Sequential Compression Device (SCD) Assessment and Plan - Plan A/P - left femoral neck fracture after a fall NPO for now- continue with pain control ( E-foarsce was reviewed)-consult ortho. -possible UTI; start on antibiotic and follow the UC. -hypertension/ schizophrenia; resume home meds. -DVT prophylaxis; pending ortho evaluation. Discussed Condition With: ER and the patient.
[2017-11-22] MEDS: Sod Chloride 0.9% Inj 1,000 ML IV.CONT SCH (15:30)
--- NOTE | 2017-11-22 15:31 | ECG ---
Date Performed: 11/22/2017 Time Performed: 12:05:46 PTAGE: 82 years EKG: Sinus rhythm SEPTAL MYOCARDIAL INFARCTION ABNORMAL ECG No significant change from prior electrocardiogram. PREVIOUS TRACING : 08/16/2017 10.21 DOCTOR: Jose Talamantes Interpretating Date/Time 11/22/2017 15:30:14
[2017-11-22] MEDS ORDERED: CEFTRIAXONE 1 GM/50 ML IV.SIG SCH (16:00)
[2017-11-22] MEDS: Haloperidol 5 MG Tablet PO SCH (18:17)
[2017-11-22] MEDS: ALPRAZolam 0.5 MG Tablet PO SCH (22:47)
[2017-11-22] MEDS ORDERED: Sodium Chlor 0.9% Inj 500 ML IV.SIG SCH (23:45)
[2017-11-22] MEDS ORDERED: Chlorhexidine Gluconate 2% 1 Pack (2 Cloths) TOPICAL SCH (23:45)
[2017-11-23] MEDS: Sod Chloride 0.9% Inj 1,000 ML IV.CONT SCH ×2 (04:22→16:54)
--- NOTE | 2017-11-23 06:31 | P.PNOP ---
Subjective Interval history: s/p fall at long term. left hip pain. no other complaints. Physical Exam Vital signs: Vital Signs 11/22/17 11:45 11/22/17 12:24 11/22/17 13:26 Temperature 97.8 F 97.7 F Pulse Rate 85 73 Respiratory Rate 16 17 18 Blood Pressure 137/68 134/71 Pulse Oximetry 96 99 11/22/17 18:16 11/22/17 19:13 11/22/17 20:00 Temperature 97.7 F 98.1 F Pulse Rate 71 71 76 Respiratory Rate 20 16 18 Blood Pressure 130/66 163/73 H 152/69 H Pulse Oximetry 97 94 L 98 11/22/17 21:33 11/22/17 22:00 11/23/17 00:00 Temperature 98.1 F Pulse Rate 76 Respiratory Rate 16 15 Blood Pressure 142/64 H Pulse Oximetry 95 98 11/23/17 04:00 Temperature 98.1 F Pulse Rate 71 Respiratory Rate 18 Blood Pressure 119/57 L Pulse Oximetry 97 Intake & Output 11/22/17 11/22/17 11/23/17 06:59 18:59 06:59 Intake Total 1000 / 1000 Output Total 400 / 400 600 / 600 Balance -400 / -400 400 / 400 Weight 68.039 kg 67.1 kg Intake: IV 1000 / 1000 NS Inj 1,000 ML @ 75 mls/hr IV. 1000 / 1000 CONT .[id number] [facility] Rx#:[id number] Output: Urine Amount (Catheter) 400 / 400 600 / 600 Indwelling Urethral Catheter 400 / 400 600 / 600 Other: Date of Last Bowel Movement 11/21/17 Weight On Admission 68 kg Narrative: LLE: +bucks traction. nvi. - Urinary Catheter Management Indwelling Urethral Catheter Cath placed during this visit: yes Reason for continuing: Other continuation reason Insertion date: 11/22/17 Insertion time: 12:52 Results - Labs CBC & Chem 7: 11/22/17 12:00 11/22/17 12:00 Laboratory Results - last 24 hr 11/22/17 11/22/17 11/22/17 12:00 12:00 12:00 WBC 11.6 H RBC 4.37 Hgb 14.1 Hct 42.7 MCV 97.7 MCH 32.3 MCHC 33.0 RDW 14.5 Plt Count 505 H MPV 7.7 Neut % (Auto) 81.8 H Lymph % (Auto) 10.0 [place] % (Auto) 5.9 Eos % (Auto) 1.8 Baso % (Auto) 0.5 Neut # (Auto) 9.5 H Lymph # (Auto) 1.2 [place] # (Auto) 0.7 Eos # (Auto) 0.2 Baso # (Auto) 0.1 WBC Differential . Differential Comment Auto diff final PT 10.3 INR 1.0 APTT 28.9 Sodium 137 Potassium 4.0 Chloride 101 Carbon Dioxide 30.0 Anion Gap 6 BUN 15 Creatinine 0.39 L Estimated GFR Greater than 89 Random Glucose 103 Calcium 8.7 Total Bilirubin 0.3 AST 21 ALT 23 Alkaline Phosphatase 156 H Total Protein 6.2 L Albumin 2.5 L Urine Color Urine Clarity Urine pH Ur Specific [place] Urine Protein Urine Glucose (UA) Urine Ketones Urine Occult Blood Urine Nitrate Urine Bilirubin Urine Urobilinogen Ur Leukocyte Esterase Urine RBC Urine WBC Ur Squamous Epith Cells Ur Transition Epith Cell Amorphous Sediment Urine Bacteria Urine Mucus Micro UA Comment Urine Culture Comments Blood Type Blood Type Recheck Antibody Screen 11/22/17 11/23/17 12:40 04:30 WBC RBC Hgb Hct MCV MCH MCHC RDW Plt Count MPV Neut % (Auto) Lymph % (Auto) [place] % (Auto) Eos % (Auto) Baso % (Auto) Neut # (Auto) Lymph # (Auto) [place] # (Auto) Eos # (Auto) Baso # (Auto) WBC Differential Differential Comment PT INR APTT Sodium Potassium Chloride Carbon Dioxide Anion Gap BUN Creatinine Estimated GFR Random Glucose Calcium Total Bilirubin AST ALT Alkaline Phosphatase Total Protein Albumin Urine Color Yellow Urine Clarity Cloudy H Urine pH 7.0 Ur Specific [place] 1.013 Urine Protein Negative Urine Glucose (UA) Negative Urine Ketones Negative Urine Occult Blood Negative Urine Nitrate Negative Urine Bilirubin Negative Urine Urobilinogen 4 or greater Ur Leukocyte Esterase Moderate H Urine RBC 3 Urine WBC 19 H Ur Squamous Epith Cells 14 Ur Transition Epith Cell 2 Amorphous Sediment Occasional H Urine Bacteria Occasional H Urine Mucus Few H Micro UA Comment Culture indicated Urine Culture Comments Culture indicated Blood Type O Positive Blood Type Recheck Required Antibody Screen Negative - Imaging Impressions Chest X-Ray 11/22/17 11:48 CONCLUSION: No acute findings. Hip X-Ray 11/22/17 12:10 CONCLUSION: Displaced subcapital left femoral neck fracture. Assessment and Plan - Assessment and Plan 1)Left Femoral Neck Fx -npo -consents -surgery today aguilar Villegas for left hip hemiarthroplasty [facility] Prescription Drug Monitoring Database has been queried and verified prior to prescribing the controlled substance. Acute pain exception. This patient has normal, predicted, physiological, and time limited response to an adverse mechanical stimulus associated with surgery, trauma, or acute illness as described in my notes. There is a lack of alternative treatment options other than to include the prescribed narcotic treatment for this condition.
--- NOTE | 2017-11-23 07:18 | P.CONOP ---
[facility] Orthopedics Consult Note - [facility] Consult date: 11/23/17 Chief complaint: acute left hip femoral neck fracture Narrative: Edilia is an 82-year-old female who has a history of hypertension and schizophrenia. She describes a fall several days ago. She lives in an [place]. She does not clearly recall the fall. She denies dizziness, syncope, or loss of consciousness. She complains of left hip pain. She has been unable to stand or ambulate. She describes a mechanical fall. Pain is worse with movement and improved with rest. She presented to the emergency room where x- rays revealed a displaced left femoral neck fracture. She is currently awake and alert on the orthopedic floor. Her only complaint is her left hip. Review of Systems Patient denies fevers, chills, weight loss, headache, visual changes, hearing loss, chest pain, palpitations, shortness of breath, nausea, vomiting, no urinary changes, diarrhea, bowel changes, neck pain, back pain, skin rashes, weakness of extremities, easy bleeding, enlarged lymph nodes, numbness of extremities, anxiety, or depression. All other systems reviewed negative except as stated in [facility] PMFSH - History History Provided By: Patient - Medical History Medical History: Medical History (Last Reviewed 11/22/17 @ 22:22 by Traci Gu RN) Anxiety Frequent falls HBP (high blood pressure) Schizophrenic disorder - Surgical History Surgical History: Surgical History (Last Reviewed 11/22/17 @ 22:22 by Traci Gu RN) No history of previous surgery - Tobacco History Second Hand Smoke Exposure: Yes Tobacco Use In Past 30 Days: Yes Smoking Status: Current every day smoker Tobacco Type: Cigarettes - Alcohol History How Often Do You Have a Drink Containing Alcohol: Never - Substance Use History Substance History: No History of Abuse - Travel History Recent Travel in the [place] Within the Last 8 Weeks: No Recent Travel Out of the Country Within the Last 8 Weeks: No - Immunization History Tetanus Immunization: Unsure Hx Influenza Vaccine This Season: No Medications and Allergies Active Medications: Active Medications Hydrocodone Bitart/Acetaminophen (Terrell 5/325) 1 tab PO Q4H PRN PRN Reason: pain 1-5 Hydrocodone Bitart/Acetaminophen ([place] 5/325) 2 tab PO Q4H PRN PRN Reason: pain 6-10 Last Admin: 11/23/17 04:21 Dose: 2 tab Alprazolam (Xanax) 0.5 mg PO BID [facility] Last Admin: 11/22/17 22:47 Dose: 0.5 mg Chlorhexidine Gluconate (Chlorhexidine 2% Cloth) 3 pack [employer] [facility] Stop: 11/25/17 23:40 Haloperidol (Haldol) 0.5 mg PO [facility] Last Admin: 11/22/17 22:47 Dose: 0.5 mg Haloperidol (Haldol) 2.5 mg PO TID [facility] Last Admin: 11/22/17 18:17 Dose: 2.5 mg Haloperidol (Haldol) 4 mg PO [facility] Last Admin: 11/22/17 22:47 Dose: 4 mg Sodium Chloride (Ns Inj) 1,000 mls @ 75 mls/hr IV.CONT .[id number] [facility] Last Admin: 11/23/17 04:22 Dose: 75 mls/hr Lactated Ringer's (Lr 1000 Ml Inj) 1,000 mls @ 30 mls/hr IV.SIG .Q24H [facility] Stop: 11/25/17 23:40 Last Admin: 11/23/17 04:40 Dose: Not Given Sodium Chloride (Ns Inj) 500 mls @ 30 mls/hr IV.SIG .Q10H [facility] Stop: 11/25/17 23:40 Lisinopril (Prinivil) 5 mg PO DAILY [facility] Miscellaneous (Pill Splitter) 1 each OTHER UNSCH [facility] Morphine Sulfate (Morphine Inj) 2 mg IV.PUSH Q4H PRN PRN Reason: BREAKTHROUGH PAIN Povidone Iodine (Betadine 5% Antisepsis Kit) 1 applicatio EACH [employer] [facility] Stop: 11/25/17 23:40 Ziprasidone (Geodon) 20 mg PO DAILY [facility] Allergies Allergy/AdvReac Type Severity Reaction Status Date / Time No Known Allergies Allergy Verified 11/22/17 22:22 Home Medications Medication Instructions Recorded Confirmed Type acetaminophen [Tylenol Extra 500 mg PO Q6H PRN 11/22/17 11/22/17 History Strength] alprazolam [Xanax] 0.5 mg PO BID 11/22/17 11/22/17 History haloperidol 2.5 mg PO TID 11/22/17 11/22/17 History haloperidol 4.5 mg PO HS 11/22/17 11/22/17 History haloperidol 4.5 mg PO 11/22/17 11/22/17 History lisinopril 5 mg PO DAILY 11/22/17 11/22/17 History lorazepam [Ativan] 0.5 mg IM BID PRN 11/22/17 11/22/17 History meloxicam [Mobic] 7.5 mg PO DAILY 11/22/17 11/22/17 History ziprasidone HCl [Geodon] 20 mg PO DAILY 11/22/17 11/22/17 History Exam Vital signs: Vital Signs 11/22/17 11:45 11/22/17 12:24 11/22/17 13:26 Temperature 97.8 F 97.7 F Pulse Rate 85 73 Respiratory Rate 16 17 18 Blood Pressure 137/68 134/71 Pulse Oximetry 96 99 11/22/17 18:16 11/22/17 19:13 11/22/17 20:00 Temperature 97.7 F 98.1 F Pulse Rate 71 71 76 Respiratory Rate 20 16 18 Blood Pressure 130/66 163/73 H 152/69 H Pulse Oximetry 97 94 L 98 11/22/17 21:33 11/22/17 22:00 11/23/17 00:00 Temperature 98.1 F Pulse Rate 76 Respiratory Rate 16 15 Blood Pressure 142/64 H Pulse Oximetry 95 98 11/23/17 04:00 Temperature 98.1 F Pulse Rate 71 Respiratory Rate 18 Blood Pressure 119/57 L Pulse Oximetry 97 Intake & Output 11/22/17 11/23/17 11/23/17 18:59 06:59 18:59 Intake Total 1000 / 1000 Output Total 400 / 400 600 / 600 Balance -400 / -400 400 / 400 Weight 68.039 kg 67.1 kg Intake: IV 1000 / 1000 NS Inj 1,000 ML @ 75 mls/hr IV. 1000 / 1000 CONT .[id number] [facility] Rx#:[id number] Output: Urine Amount (Catheter) 400 / 400 600 / 600 Indwelling Urethral Catheter 400 / 400 600 / 600 Other: Date of Last Bowel Movement 11/21/17 Weight On Admission 68 kg Narrative: Edilia is an 82-year-old female. She is awake and alert. She is thin but appears well-nourished. She is in no acute distress. Normocephalic atraumatic. Neck is soft and nontender. Abdomen is soft and nondistended. Examination of bilateral upper extremities reveals no pain or deformity with shoulder, elbow, or wrist motion. Skin is intact. Radial pulses are palpable bilaterally. Normal capillary refill in fingers. Sensation is intact in radial , ulnar, and median nerve distributions. 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 No lymphadenopathy noted. Examination of right leg reveals no pain with hip, knee, or ankle motion. Skin is intact. Sensation is intact. Dorsalis pedis pulses palpable. No lymphadenopathy. Examination of left leg reveals pain with hip motion. She is tender to palpation over the proximal femur. Skin is intact. She has no tenderness around her knee, tibia, or ankle. Dorsalis pedis pulse is palpable. Sensation is intact on left foot. - Constitutional no acute distress - Routine HEENT Exam Head: Present: normocephalic, atraumatic Eye: Present: EOMI, PERRL ENT: Present: mucous membranes moist - Routine Neck Exam Present: supple, full ROM - Routine Abdominal Exam Present: soft Comments: Nontender, nondistended - Routine Skin Exam Present: intact - Routine Neurological Exam Present: alert, oriented X3 Results - Labs Result Diagrams: 11/22/17 12:00 11/22/17 12:00 Labs: Laboratory Results - last 24 hr 11/22/17 11/22/17 11/22/17 12:00 12:00 12:00 WBC 11.6 H RBC 4.37 Hgb 14.1 Hct 42.7 MCV 97.7 MCH 32.3 MCHC 33.0 RDW 14.5 Plt Count 505 H MPV 7.7 Neut % (Auto) 81.8 H Lymph % (Auto) 10.0 [place] % (Auto) 5.9 Eos % (Auto) 1.8 Baso % (Auto) 0.5 Neut # (Auto) 9.5 H Lymph # (Auto) 1.2 [place] # (Auto) 0.7 Eos # (Auto) 0.2 Baso # (Auto) 0.1 WBC Differential . Differential Comment Auto diff final PT 10.3 INR 1.0 APTT 28.9 Sodium 137 Potassium 4.0 Chloride 101 Carbon Dioxide 30.0 Anion Gap 6 BUN 15 Creatinine 0.39 L Estimated GFR Greater than 89 Random Glucose 103 Calcium 8.7 Total Bilirubin 0.3 AST 21 ALT 23 Alkaline Phosphatase 156 H Total Protein 6.2 L Albumin 2.5 L Urine Color Urine Clarity Urine pH Ur Specific [place] Urine Protein Urine Glucose (UA) Urine Ketones Urine Occult Blood Urine Nitrate Urine Bilirubin Urine Urobilinogen Ur Leukocyte Esterase Urine RBC Urine WBC Ur Squamous Epith Cells Ur Transition Epith Cell Amorphous Sediment Urine Bacteria Urine Mucus Micro UA Comment Urine Culture Comments Blood Type Blood Type Recheck Antibody Screen 11/22/17 11/23/17 12:40 04:30 WBC RBC Hgb Hct MCV MCH MCHC RDW Plt Count MPV Neut % (Auto) Lymph % (Auto) [place] % (Auto) Eos % (Auto) Baso % (Auto) Neut # (Auto) Lymph # (Auto) [place] # (Auto) Eos # (Auto) Baso # (Auto) WBC Differential Differential Comment PT INR APTT Sodium Potassium Chloride Carbon Dioxide Anion Gap BUN Creatinine Estimated GFR Random Glucose Calcium Total Bilirubin AST ALT Alkaline Phosphatase Total Protein Albumin Urine Color Yellow Urine Clarity Cloudy H Urine pH 7.0 Ur Specific [place] 1.013 Urine Protein Negative Urine Glucose (UA) Negative Urine Ketones Negative Urine Occult Blood Negative Urine Nitrate Negative Urine Bilirubin Negative Urine Urobilinogen 4 or greater Ur Leukocyte Esterase Moderate H Urine RBC 3 Urine WBC 19 H Ur Squamous Epith Cells 14 Ur Transition Epith Cell 2 Amorphous Sediment Occasional H Urine Bacteria Occasional H Urine Mucus Few H Micro UA Comment Culture indicated Urine Culture Comments Culture indicated Blood Type O Positive Blood Type Recheck Required Antibody Screen Negative - Diagnostic results Imaging: Impressions Chest X-Ray 11/22/17 11:48 CONCLUSION: No acute findings. Hip X-Ray 11/22/17 12:10 CONCLUSION: Displaced subcapital left femoral neck fracture. Hip x-ray: report reviewed, image reviewed Assessment and Plan - Assessment and Plan 1) Edilia has a displaced left Femoral Neck Fx. Treatment options were discussed. At this point I would recommend a left hip hemiarthroplasty. The risk and benefits of surgery were discussed in depth with patient. The risk of surgery include bleeding, infection, injuries to arteries, nerves, or blood vessels, infection, wound complications, leg length discrepancy, hip dislocation, trochanteric bursitis, painful hardware, and need for further surgery. I also discussed medical complications including blood clots, pneumonia, stroke, heart attack, and . Informed consent was obtained and all questions were answered. 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 Surgery today A mid-level provider in my office (nurse practitioner or physician assistant counsel) may see this patient on follow-up visits and continue to implement the objectives of this plan including: Starting or adjusting medications, injections , cast application, orthotics, brace application, physical therapy, radiological studies (including x-ray, MRI, CT, ultrasound, bone scan), vascular studies, neurologic studies, specialist consultation, and proceeding with surgical management, as appropriate. [facility] Prescription Drug Monitoring Database has been queried and verified prior to prescribing the controlled substance. Acute pain exception. This patient has normal, predicted, physiological, and time limited response to an adverse mechanical stimulus associated with surgery, trauma, or acute illness as described in my notes. There is a lack of alternative treatment options other than to include the prescribed narcotic treatment for this condition.
--- NOTE | 2017-11-23 07:56 | P.PNIM ---
Subjective Interval history: f/u; left femoral neck fracture in no acute distress. pain is fairly controlled. awaiting ortho intervention. Physical Exam Vital signs: Vital Signs 11/22/17 11:45 11/22/17 12:24 11/22/17 13:26 Temperature 97.8 F 97.7 F Pulse Rate 85 73 Respiratory Rate 16 17 18 Blood Pressure 137/68 134/71 Pulse Oximetry 96 99 11/22/17 18:16 11/22/17 19:13 11/22/17 20:00 Temperature 97.7 F 98.1 F Pulse Rate 71 71 76 Respiratory Rate 20 16 18 Blood Pressure 130/66 163/73 H 152/69 H Pulse Oximetry 97 94 L 98 11/22/17 21:33 11/22/17 22:00 11/23/17 00:00 Temperature 98.1 F Pulse Rate 76 Respiratory Rate 16 15 Blood Pressure 142/64 H Pulse Oximetry 95 98 11/23/17 04:00 Temperature 98.1 F Pulse Rate 71 Respiratory Rate 18 Blood Pressure 119/57 L Pulse Oximetry 97 Intake & Output 11/22/17 11/23/17 11/23/17 18:59 06:59 18:59 Intake Total 1000 / 1000 Output Total 400 / 400 600 / 600 Balance -400 / -400 400 / 400 Weight 68.039 kg 67.1 kg Intake: IV 1000 / 1000 NS Inj 1,000 ML @ 75 mls/hr IV. 1000 / 1000 CONT .[id number] [facility] Rx#:[id number] Output: Urine Amount (Catheter) 400 / 400 600 / 600 Indwelling Urethral Catheter 400 / 400 600 / 600 Other: Date of Last Bowel Movement 11/21/17 Weight On Admission 68 kg - Constitutional no acute distress - Routine Respiratory Exam Present: CTA bilaterally - Routine Cardiovascular Exam Present: RRR - Routine Abdominal Exam Present: soft - Routine Extremities Exam Comments: no pedal edema. - Routine Neurological Exam Present: alert - Urinary Catheter Management Indwelling Urethral Catheter Cath placed during this visit: yes Reason for continuing: Other continuation reason Insertion date: 11/22/17 Insertion time: 12:52 Results - Labs CBC & Chem 7: 11/22/17 12:00 11/22/17 12:00 Laboratory Results - last 24 hr 11/22/17 11/22/17 11/22/17 12:00 12:00 12:00 WBC 11.6 H RBC 4.37 Hgb 14.1 Hct 42.7 MCV 97.7 MCH 32.3 MCHC 33.0 RDW 14.5 Plt Count 505 H MPV 7.7 Neut % (Auto) 81.8 H Lymph % (Auto) 10.0 [place] % (Auto) 5.9 Eos % (Auto) 1.8 Baso % (Auto) 0.5 Neut # (Auto) 9.5 H Lymph # (Auto) 1.2 [place] # (Auto) 0.7 Eos # (Auto) 0.2 Baso # (Auto) 0.1 WBC Differential . Differential Comment Auto diff final PT 10.3 INR 1.0 APTT 28.9 Sodium 137 Potassium 4.0 Chloride 101 Carbon Dioxide 30.0 Anion Gap 6 BUN 15 Creatinine 0.39 L Estimated GFR Greater than 89 Random Glucose 103 Calcium 8.7 Total Bilirubin 0.3 AST 21 ALT 23 Alkaline Phosphatase 156 H Total Protein 6.2 L Albumin 2.5 L Urine Color Urine Clarity Urine pH Ur Specific [place] Urine Protein Urine Glucose (UA) Urine Ketones Urine Occult Blood Urine Nitrate Urine Bilirubin Urine Urobilinogen Ur Leukocyte Esterase Urine RBC Urine WBC Ur Squamous Epith Cells Ur Transition Epith Cell Amorphous Sediment Urine Bacteria Urine Mucus Micro UA Comment Urine Culture Comments Blood Type Blood Type Recheck Antibody Screen 11/22/17 11/23/17 12:40 04:30 WBC RBC Hgb Hct MCV MCH MCHC RDW Plt Count MPV Neut % (Auto) Lymph % (Auto) [place] % (Auto) Eos % (Auto) Baso % (Auto) Neut # (Auto) Lymph # (Auto) [place] # (Auto) Eos # (Auto) Baso # (Auto) WBC Differential Differential Comment PT INR APTT Sodium Potassium Chloride Carbon Dioxide Anion Gap BUN Creatinine Estimated GFR Random Glucose Calcium Total Bilirubin AST ALT Alkaline Phosphatase Total Protein Albumin Urine Color Yellow Urine Clarity Cloudy H Urine pH 7.0 Ur Specific [place] 1.013 Urine Protein Negative Urine Glucose (UA) Negative Urine Ketones Negative Urine Occult Blood Negative Urine Nitrate Negative Urine Bilirubin Negative Urine Urobilinogen 4 or greater Ur Leukocyte Esterase Moderate H Urine RBC 3 Urine WBC 19 H Ur Squamous Epith Cells 14 Ur Transition Epith Cell 2 Amorphous Sediment Occasional H Urine Bacteria Occasional H Urine Mucus Few H Micro UA Comment Culture indicated Urine Culture Comments Culture indicated Blood Type O Positive Blood Type Recheck Required Antibody Screen Negative - Imaging Impressions Chest X-Ray 11/22/17 11:48 CONCLUSION: No acute findings. Hip X-Ray 11/22/17 12:10 CONCLUSION: Displaced subcapital left femoral neck fracture. Assessment and Plan - Plan A/P - left femoral neck fracture after a fall NPO for now- continue with pain control ( E-foarsce was reviewed)-consulted ortho; for ortho intervention today. -possible UTI; start on antibiotic and follow the UC. -hypertension/ schizophrenia; resumed home meds. -DVT prophylaxis; pending ortho intervention. Discharge Planning: dc planning; SNF- for ortho intervention today.
[2017-11-23] MEDS: Haloperidol 5 MG Tablet PO SCH ×3 (09:49→17:57)
[2017-11-23] MEDS: Lisinopril 5 MG Tablet PO SCH (09:50)
[2017-11-23] MEDS: ALPRAZolam 0.5 MG Tablet PO SCH ×2 (09:57→20:08)
[2017-11-23] MEDS ORDERED: Neostigmine Inj 5 MG/5 ML Syringe IV.PUSH ONE (12:00)
[2017-11-23] MEDS ORDERED: Glycopyrrolate Inj 1 MG/5 ML Syringe IV.PUSH ONE (12:00)
[2017-11-23] MEDS ORDERED: Lidocaine PF 1% Inj 5 ML Syringe INFILTRATN ONE (12:00)
[2017-11-23] MEDS ORDERED: Phenylephrine/NS 1000 MCG/10ML Syringe IV.PUSH ONE (12:00)
[2017-11-23] MEDS ORDERED: Post-op Orders (for Pharmacy) OTHER STA (14:41)
[2017-11-23] MEDS ORDERED: Bisacodyl 10 MG Supp RECTAL PRN (14:41)
--- NOTE | 2017-11-23 14:49 | P.OP ---
Date of procedure: 11/23/17 Procedure: Left hip cemented hemiarthroplasty Anesthesia: GETA Surgeon: Salty Pfeiffer MD Welfare Investigator: Hayden Lee PA-C The surgical procedure was assisted by my physician warehouse assistant. My P.A. presence was necessary throughout this case for the manipulation and positioning of the surgical extremity. My P.A. was assisting me throughout the duration of this procedure. The skill set of a physician warehouse assistant was medically necessary to complete this procedure. During the surgical case the technical translator was working at the back table and the physician warehouse assistant was directly assisting me. Operation and Findings: PLAN OF ACTIVITY Weight bear as tolerated. IMPLANTS USED DePuy cemented [place] size [6] stem with size [45] bipolar head and [standard] neck. DETAILS OF PROCEDURE This patient was brought into the operating room and placed on the OR table. The patient was given anesthesia. The patient received IV antibiotics. The patient was then placed in lateral decubitus position. The hip and leg were prepped with alcohol, followed by Hibiclens and draped in a usual sterile fashion. Clean air was used for this procedure. Time out procedure was performed. The procedure began with a 5 inch incision over the posterolateral hip. The subcutaneous tissue was dissected with the Bovie. The iliotibial band were split in line with fibers. The [place]arn[place] retractor was placed. The piriformis and external rotators were released from the femur and tagged with a #1 Vicryl suture. The capsule is now incised and tagged with #1 Vicryl. The femoral neck fracture was now visualized. A corkscrew was now used to remove the femoral head. The femoral head was sized and measured. Soft tissue was now protected. The hip skid was placed underneath the femoral neck. An oscillating saw was used to make a femoral neck cut. At this point attention was turned to preparation of the proximal femur. A box osteotome was used to remove the lateral cortex of the femoral neck. The T- handle reamer was used to open the femoral canal. The canal was now reamed. Next , the canal was broached up to appropriate size. A lateralizing reamer was used to help lateralize the prosthesis. At this point a trial head and neck were placed. The hip was reduced. The patient was found to have excellent stability with good range of motion. Trial components were removed. Soft tissue and bone were thoroughly irrigated. The summit stem was now opened. Cement was mixed with vancomycin powder. Cement was pressurized into the femoral canal. The stem was now placed into the proximal femur. Care was taken to keep appropriate anteversion. excess cement was removed. After cement was set, the head and neck were now impacted onto the stem. The hip was again reduced. The hip was found to have good range of motion and good stability. Leg lengths were clinically equal. The wound was thoroughly irrigated. The capsule, piriformis and iliotibial band were closed with #1 Vicryl. Subcutaneous tissue was closed with 3-0 Vicryl. The skin was closed with rajiv. A sterile dressing was applied with [place]. The patient was placed into a knee immobilizer. The patient was awakened and transferred to the recovery room in stable condition. Needle and sponge counts were correct.
[2017-11-23] MEDS ORDERED: fentaNYL Citrate Inj 100 MCG/2 ML Ampul ONE (15:17)
[2017-11-23] MEDS ORDERED: Morphine Inj 4 MG/ML Vial ONE (15:18)
[2017-11-23] MEDS ORDERED: *Labetalol HCl Inj 100 MG/20 ML Vial PERIprocedural Use ONLY IV.PUSH ONE (15:58)
--- NOTE | 2017-11-23 16:00 | XR ---
EXAM DATE: 11/23/2017 3:46 PM EDT AGE/SEX: 82 years / Female INDICATIONS: Post op left hip surgery. CLINICAL DATA: This is the patient's initial encounter. Patient reports that signs and symptoms have been present for 1 day and indicates a pain score of Nonresponsive. MEDICAL/SURGICAL HISTORY: None. None. COMPARISON: [facility] [place], HIP LEFT 2V, 11/22/2017. . FINDINGS: Subcapital fracture has been repaired with a total hip arthroplasty. Femoral and acetabular component s are appropriately positioned without fracture or dislocation. Expected deep tissue emphysematous ch anges about the left hip. Degenerative osteoarthritic changes in the right hip. Multiple injection gr anulomata in the proximal bilaterally. CONCLUSION: 1. Left subcapital fracture has been repaired with a total left hip arthroplasty. 2. 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 3. Injection granulomata in the buttocks bilaterally. Electronically signed by: Peter Harper MD 11/23/2017 3:59 PM EDT
[2017-11-23] MEDS: Calcium/Vitamin D 250/125 MG Tablet PO SCH (17:57)
[2017-11-23] MEDS: ceFAZolin Inj 2,000 MG in Sodium Chlor 0.9% Inj 80 ML IV.SIG SCH (18:48)
[2017-11-23] MEDS: Senna/Docusate Sodium 8.6/50 MG Tablet PO SCH (20:07)
[2017-11-24] MEDS: ceFAZolin Inj 2,000 MG in Sodium Chlor 0.9% Inj 80 ML IV.SIG SCH ×2 (01:06→13:11)
[2017-11-24] MEDS: Sod Chloride 0.9% Inj 1,000 ML IV.CONT SCH ×2 (06:32→19:13)
--- NOTE | 2017-11-24 10:38 | P.PNIM ---
Subjective Interval history: patient has no complaints. She seems confused but does answer questions. She knows her name. She think she is at [facility]. patient stated she has no concerns and does not want to speak to me anymore because she stated I'm confused. patient is refusing care. She declined any examination. Physical Exam Vital signs: Vital Signs 11/23/17 12:00 11/23/17 15:04 11/23/17 15:15 Temperature 97.6 F 96.6 F L Pulse Rate 66 88 80 Respiratory Rate 16 20 18 Blood Pressure 146/68 H 165/81 H 175/80 H Pulse Oximetry 98 99 11/23/17 15:30 11/23/17 15:45 11/23/17 16:00 Temperature Pulse Rate 78 78 70 Respiratory Rate 12 12 13 Blood Pressure 167/78 H 180/78 H 170/76 H Pulse Oximetry 96 96 95 11/23/17 16:15 11/23/17 16:20 11/23/17 16:23 Temperature 97.5 F L 97.5 F L Pulse Rate 65 64 Respiratory Rate 13 13 Blood Pressure 156/70 H 156/63 H Pulse Oximetry 95 96 11/23/17 16:45 11/23/17 19:37 11/23/17 20:00 Temperature 97.4 F L Pulse Rate 75 84 Respiratory Rate 16 18 Blood Pressure 150/69 H 144/68 H Pulse Oximetry 90 L 98 98 11/24/17 00:00 11/24/17 04:00 11/24/17 06:00 Temperature 97.5 F L 97.9 F Pulse Rate 80 81 Respiratory Rate 18 18 Blood Pressure 116/60 130/56 L Pulse Oximetry 96 98 94 L Intake & Output 11/23/17 11/24/17 11/24/17 18:59 06:59 18:59 Intake Total 2100 / 2100 1200 / 1200 Output Total 400 / 400 1300 / 1300 Balance 1700 / 1700 -100 / -100 Weight 67.1 kg Intake: IV 800 / 800 1200 / 1200 NS Inj 1,000 ML @ 75 mls/hr IV. 700 / 700 1000 / 1000 CONT .[id number] [facility] Rx#:[id number] Ancef Inj 2,000 MG In NS Inj 80 200 / 200 ML @ 200 mls/hr IV.SIG Q8H [facility] Rx#:[id number] Rocephin Inj 1,000 MG In NS Inj 100 / 100 100 ML @ 200 mls/hr IV.SIG Q24H [facility] Rx#:[id number] Anesthesia Amount 1300 / 1300 Output: Estimated Blood Loss 100 / 100 Urine Amount (Catheter) 300 / 300 1300 / 1300 Indwelling Urethral Catheter 300 / 300 1300 / 1300 Other: Date of Last Bowel Movement 11/21/17 11/21/17 - Constitutional no acute distress (in NAD. unable to exam since patient refused. ) - Urinary Catheter Management Indwelling Urethral Catheter Cath placed during this visit: yes, but has since been removed by the nurse Reason for continuing: Decision to DC catheter Insertion date: 11/23/17 Insertion time: 12:52 Removal date: 11/24/17 Removal time: 06:00 Results - Labs CBC & Chem 7: 11/22/17 12:00 11/22/17 12:00 Laboratory Results - last 24 hr 11/22/17 12:40 Urine Color Yellow Urine Clarity Cloudy H Urine pH 7.0 Ur Specific [place] 1.013 Urine Protein Negative Urine Glucose (UA) Negative Urine Ketones Negative Urine Occult Blood Negative Urine Nitrate Negative Urine Bilirubin Negative Urine Urobilinogen 4 or greater Ur Leukocyte Esterase Moderate H Urine RBC 3 Urine WBC 19 H Ur Squamous Epith Cells 14 Ur Transition Epith Cell 2 Amorphous Sediment Occasional H Urine Bacteria Occasional H Urine Mucus Few H Micro UA Comment Culture indicated Urine Culture Comments Culture indicated Microbiology 11/22/17 12:40 Clean Catch Urine Urine Culture - Preliminary Group D Enterococcus - Imaging Impressions Hip X-Ray 11/23/17 00:00 CONCLUSION: 1. Left subcapital fracture has been repaired with a total left hip arthroplasty. 2. 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 3. Injection granulomata in the buttocks bilaterally. Assessment and Plan - Assessment (1) Closed hip fracture Code(s): S72.009A - Fracture of unspecified part of neck of unspecified femur, initial encounter for closed fracture Status: Acute Plan: s/p left hip cemented hemiarthroplasty on 11/23/2017. management per Ortho. (2) Schizophrenia Code(s): F20.9 - Schizophrenia, unspecified Status: Acute Plan: refused medication. consulted psychiatrist to help with care. (3) UTI (urinary tract infection) Code(s): N39.0 - Urinary tract infection, site not specified Status: Acute Plan: grew group d enterococcus. will add ampicillin pending sensitivity. (4) Confusion Code(s): R41.0 - Disorientation, unspecified Status: Acute Plan: patient has underlying psych condition. maybe due to UTI. unsure baseline. prior provider did not c/o confusion but per staff patient was sedated yesterday. (5) Hypertension Code(s): I10 - Essential (primary) hypertension Status: Acute Plan: controlled. continue with home medication. - Plan Discussed Condition With: nurse Discharge Planning: SNF (1) Closed hip fracture Qualifiers: Encounter type: initial encounter Laterality: left Qualified Code(s): S72.002A - Fracture of unspecified part of neck of left femur, initial encounter for closed fracture
--- NOTE | 2017-11-24 10:47 | P.PNOP ---
Subjective Interval history: POD 1 s/p left hip hemiarthroplasty slightly confused. states does not want to get out of bed Physical Exam Vital signs: Vital Signs 11/23/17 12:00 11/23/17 15:04 11/23/17 15:15 Temperature 97.6 F 96.6 F L Pulse Rate 66 88 80 Respiratory Rate 16 20 18 Blood Pressure 146/68 H 165/81 H 175/80 H Pulse Oximetry 98 99 11/23/17 15:30 11/23/17 15:45 11/23/17 16:00 Temperature Pulse Rate 78 78 70 Respiratory Rate 12 12 13 Blood Pressure 167/78 H 180/78 H 170/76 H Pulse Oximetry 96 96 95 11/23/17 16:15 11/23/17 16:20 11/23/17 16:23 Temperature 97.5 F L 97.5 F L Pulse Rate 65 64 Respiratory Rate 13 13 Blood Pressure 156/70 H 156/63 H Pulse Oximetry 95 96 11/23/17 16:45 11/23/17 19:37 11/23/17 20:00 Temperature 97.4 F L Pulse Rate 75 84 Respiratory Rate 16 18 Blood Pressure 150/69 H 144/68 H Pulse Oximetry 90 L 98 98 11/24/17 00:00 11/24/17 04:00 11/24/17 06:00 Temperature 97.5 F L 97.9 F Pulse Rate 80 81 Respiratory Rate 18 18 Blood Pressure 116/60 130/56 L Pulse Oximetry 96 98 94 L Intake & Output 11/23/17 11/24/17 11/24/17 18:59 06:59 18:59 Intake Total 2100 / 2100 1200 / 1200 Output Total 400 / 400 1300 / 1300 Balance 1700 / 1700 -100 / -100 Weight 67.1 kg Intake: IV 800 / 800 1200 / 1200 NS Inj 1,000 ML @ 75 mls/hr IV. 700 / 700 1000 / 1000 CONT .[id number] [facility] Rx#:[id number] Ancef Inj 2,000 MG In NS Inj 80 200 / 200 ML @ 200 mls/hr IV.SIG Q8H [facility] Rx#:[id number] Rocephin Inj 1,000 MG In NS Inj 100 / 100 100 ML @ 200 mls/hr IV.SIG Q24H [facility] Rx#:[id number] Anesthesia Amount 1300 / 1300 Output: Estimated Blood Loss 100 / 100 Urine Amount (Catheter) 300 / 300 1300 / 1300 Indwelling Urethral Catheter 300 / 300 1300 / 1300 Other: Date of Last Bowel Movement 11/21/17 11/21/17 Narrative: LLE: dressings clean and dry. intact. +CKS/ nvi distally - Urinary Catheter Management Indwelling Urethral Catheter Cath placed during this visit: yes, but has since been removed by the nurse Reason for continuing: Decision to DC catheter Insertion date: 11/23/17 Insertion time: 12:52 Removal date: 11/24/17 Removal time: 06:00 Results - Labs CBC & Chem 7: 11/22/17 12:00 11/22/17 12:00 Laboratory Results - last 24 hr 11/22/17 12:40 Urine Color Yellow Urine Clarity Cloudy H Urine pH 7.0 Ur Specific [place] 1.013 Urine Protein Negative Urine Glucose (UA) Negative Urine Ketones Negative Urine Occult Blood Negative Urine Nitrate Negative Urine Bilirubin Negative Urine Urobilinogen 4 or greater Ur Leukocyte Esterase Moderate H Urine RBC 3 Urine WBC 19 H Ur Squamous Epith Cells 14 Ur Transition Epith Cell 2 Amorphous Sediment Occasional H Urine Bacteria Occasional H Urine Mucus Few H Micro UA Comment Culture indicated Urine Culture Comments Culture indicated Microbiology 11/22/17 12:40 Clean Catch Urine Urine Culture - Preliminary Group D Enterococcus - Imaging Impressions Hip X-Ray 11/23/17 00:00 CONCLUSION: 1. Left subcapital fracture has been repaired with a total left hip arthroplasty. 2. 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 3. Injection granulomata in the buttocks bilaterally. Assessment and Plan - Assessment and Plan 1) Left Hip Hemiarthroplasty - POD 1 -WBAt -posterior hip precautions -daily dressing changes with pirmpaore POD 2 -CKs while in bed -DVT prophylaxis -CM for SNF placement -f/u [facility] Villeg[facility] or [facility] in 2 weeks [facility] Prescription Drug Monitoring Database has been queried and verified prior to prescribing the controlled substance. Acute pain exception. This patient has normal, predicted, physiological, and time limited response to an adverse mechanical stimulus associated with surgery, trauma, or acute illness as described in my notes. There is a lack of alternative treatment options other than to include the prescribed narcotic treatment for this condition.
[2017-11-24] MEDS: Senna/Docusate Sodium 8.6/50 MG Tablet PO SCH ×2 (13:10→22:14)
[2017-11-24] MEDS: Calcium/Vitamin D 250/125 MG Tablet PO SCH ×2 (13:10→19:13)
[2017-11-24] MEDS: Haloperidol 5 MG Tablet PO SCH (13:10)
[2017-11-24] MEDS: ALPRAZolam 0.5 MG Tablet PO SCH (13:11)
[2017-11-24] MEDS: Lisinopril 5 MG Tablet PO SCH (13:11)
[2017-11-24] MEDS ORDERED: Haloperidol Inj 5 MG/ML Ampul IM PRN (14:29)
--- NOTE | 2017-11-24 14:39 | P.CONPSY ---
Provisional Diagnosis Admission Date: November 22, 2017 13:11 [place] I.: Schizoaffective disorder History of Present Illness Service: Medicine Primary Care Provider: UNKNOWN Chief Complaint: left hip pain History of Present Illness: The patient is a 82-year-old female woman, domiciled with , has 4 children, with a past psychiatric history of schizoaffective disorder, previous psychiatric admissions, last hospitalization in July 2017 here in [place] under the care of Dr. Moreno, documentation review, she was discharged on Haldol 2 mg twice daily, medical history of hypertension, who presents to the ED via [facility] for evaluation of what appears to be left hip pain. Allegedly per report I was given by the nurse patient had a fall about a week ago. Apparently she has been walking on it except for the past today she has not been able to walk on it. He apparently had an x-ray today did show acute fracture and they recommended that she comes here for evaluation. Patient denies any recent injuries. She does have a history of multiple falls. Admitted due to Closed hip fracture, Fracture of unspecified part of neck of unspecified femur, initial encounter for closed fracture Status: Acute Plan : s/p left hip cemented hemiarthroplasty on 11/23/2017. Consulted to psychiatry given increased paranoia and altered mental status. My psychiatric evaluation I find a patient that is quite oppositional and irritable. At the beginning refusing to cooperate with me, stating that she does not have a psychiatric problem. But, she was able to be redirected verbally. Patient says that she feels much better now, reports good mood, she says that she is in hospital because she has a fracture in her hip. The patient is fully oriented 3, able to verbalize a good understanding of her medical and psychiatric problems. She denies suicidal and homicidal ideation, she denies visual and auditory hallucinations at the moment. The patient reports that she is willing to take her medications, follow medical recommendations, "because I want to get better. " As per nurse report, the patient has been agitated, paranoid, making accusations and refusing to take her medications. PMFSH - History History Provided By: Patient - Medical History Medical History: Medical History (Last Reviewed 11/24/17 @ 09:26 by George Sherman) Anxiety Frequent falls HBP (high blood pressure) Schizophrenic disorder - Surgical History Surgical History: Surgical History (Last Reviewed 11/24/17 @ 09:26 by George Sherman) No history of previous surgery - Tobacco History Second Hand Smoke Exposure: No Tobacco Use In Past 30 Days: No (QUIT 20 YEARS AGO) Smoking Status: Former smoker Tobacco Type: Cigarettes - Alcohol History How Often Do You Have a Drink Containing Alcohol: Never - Substance Use History Substance History: No History of Abuse - Travel History Recent Travel in the [place] Within the Last 8 Weeks: No Recent Travel Out of the Country Within the Last 8 Weeks: No - Immunization History Tetanus Immunization: >5 Years Hx Influenza Vaccine This Season: Yes Medications and Allergies Active Medications: Active Medications Hydrocodone Bitart/Acetaminophen ([place] 5/325) 1 tab PO Q4H PRN PRN Reason: pain 1-5 Hydrocodone Bitart/Acetaminophen ([place] 5/325) 2 tab PO Q4H PRN PRN Reason: pain 6-10 Last Admin: 11/23/17 04:21 Dose: 2 tab Al Hydroxide/Mg Hydroxide (Milk Of WineSimpleselvin Liq) 30 ml PO BID PRN PRN Reason: MILD CONSTIPATION Last Admin: 11/23/17 19:37 Dose: 30 ml Bisacodyl (Dulcolax Supp) 10 mg RECTAL DAILY PRN PRN Reason: SEVERE CONSITIPATION Calcium/Vitamin D (Oscal With D 250/125 Mg) 1 tab PO TID [facility] Last Admin: 11/24/17 13:10 Dose: Not Given Chlorhexidine Gluconate (Chlorhexidine 2% Cloth) 3 pack [employer] [facility] Stop: 11/25/17 23:40 Enoxaparin Sodium (Lovenox Inj) 30 mg SQ Q24H [facility] Haloperidol (Haldol) 2 mg PO BID [facility] Haloperidol Lactate (Haldol Inj) 2 mg IM Q6H PRN PRN Reason: AGITATION AND/OR HALLUCINATION Sodium Chloride (Ns Inj) 1,000 mls @ 75 mls/hr IV.CONT .[id number] [facility] Last Admin: 11/24/17 06:32 Dose: Not Given Lactated Ringer's (Lr 1000 Ml Inj) 1,000 mls @ 30 mls/hr IV.SIG .Q24H [facility] Stop: 11/25/17 23:40 Last Admin: 11/23/17 23:07 Dose: Not Given Sodium Chloride (Ns Inj) 500 mls @ 30 mls/hr IV.SIG .Q10H [facility] Stop: 11/25/17 23:40 Lactated Ringer's (Lr 1000 Ml Inj) 1,000 mls @ 50 mls/hr IV.CONT .Q20H [facility] Last Infusion: 11/24/17 13:11 Dose: Infused Lisinopril (Prinivil) 5 mg PO DAILY [facility] Last Admin: 11/24/17 13:11 Dose: Not Given Miscellaneous (Pill Splitter) 1 each [facility] Morphine Sulfate (Morphine Inj) 2 mg IV.PUSH Q4H PRN PRN Reason: BREAKTHROUGH PAIN Ondansetron HCl (Zofran Inj) 4 mg IV.PUSH Q6H PRN PRN Reason: NAUSEA Povidone Iodine (Betadine 5% Antisepsis Kit) 1 applicatio EACH [employer]ARE [employer] [facility] Stop: 11/25/17 23:40 Senna/Docusate Sodium (Stacey-Colace) 1 tab PO BID [facility] Last Admin: 11/24/17 13:10 Dose: Not Given Sennosides (Senokot) 17.2 mg PO BID PRN PRN Reason: Moderate Constipation Sodium Chloride (Ns Flush) 2 ml IV.FLUSH BID [facility] Last Admin: 11/24/17 13:10 Dose: Not Given Sodium Chloride (Ns Flush) 2 ml IV.FLUSH PRN PRN PRN Reason: FLUSH AFTER USING IV ACCESS Vitamin D (Vitamin D3) 5,000 unit PO DAILY [facility] Last Admin: 11/24/17 13:11 Dose: Not Given Allergies Allergy/AdvReac Type Severity Reaction Status Date / Time No Known Allergies Allergy Verified 11/22/17 22:22 Home Medications Medication Instructions Recorded Confirmed Type acetaminophen [Tylenol Extra 500 mg PO Q6H PRN 11/22/17 11/22/17 History Strength] alprazolam [Xanax] 0.5 mg PO BID 11/22/17 11/22/17 History haloperidol 2.5 mg PO TID 11/22/17 11/22/17 History haloperidol 4.5 mg PO HS 11/22/17 11/22/17 History haloperidol 4.5 mg PO HS 11/22/17 11/22/17 History lisinopril 5 mg PO DAILY 11/22/17 11/22/17 History lorazepam [Ativan] 0.5 mg IM BID PRN 11/22/17 11/22/17 History meloxicam [Mobic] 7.5 mg PO DAILY 11/22/17 11/22/17 History ziprasidone HCl [Geodon] 20 mg PO DAILY 11/22/17 11/22/17 History Exam Vital signs: Vital Signs 11/23/17 15:04 11/23/17 15:15 11/23/17 15:30 Temperature 96.6 F L Pulse Rate 88 80 78 Respiratory Rate 20 18 12 Blood Pressure 165/81 H 175/80 H 167/78 H Pulse Oximetry 98 99 96 11/23/17 15:45 11/23/17 16:00 11/23/17 16:15 Temperature 97.5 F L Pulse Rate 78 70 65 Respiratory Rate 12 13 13 Blood Pressure 180/78 H 170/76 H 156/70 H Pulse Oximetry 96 95 95 11/23/17 16:20 11/23/17 16:23 11/23/17 16:45 Temperature 97.5 F L Pulse Rate 64 75 Respiratory Rate 13 16 Blood Pressure 156/63 H 150/69 H Pulse Oximetry 96 90 L 11/23/17 19:37 11/23/17 20:00 11/24/17 00:00 Temperature 97.4 F L 97.5 F L Pulse Rate 84 80 Respiratory Rate 18 18 Blood Pressure 144/68 H 116/60 Pulse Oximetry 98 98 96 11/24/17 04:00 11/24/17 06:00 11/24/17 12:00 Temperature 97.9 F 98.0 F Pulse Rate 81 95 H Respiratory Rate 18 16 Blood Pressure 130/56 L 124/60 Pulse Oximetry 98 94 L 93 L Intake & Output 11/23/17 11/24/17 11/24/17 18:59 06:59 18:59 Intake Total 2100 / 2100 1200 / 1200 1000 / 1000 Output Total 400 / 400 1300 / 1300 Balance 1700 / 1700 -100 / -100 1000 / 1000 Weight 67.1 kg Intake: IV 800 / 800 1200 / 1200 1000 / 1000 LR 1000 mL Inj 1,000 ML @ 50 1000 / 1000 mls/hr IV.CONT .Q20H [facility] Rx#: [id number] NS Inj 1,000 ML @ 75 mls/hr IV. 700 / 700 1000 / 1000 CONT .[id number] [facility] Rx#:[id number] Ancef Inj 2,000 MG In NS Inj 80 200 / 200 ML @ 200 mls/hr IV.SIG Q8H [facility] Rx#:[id number] Rocephin Inj 1,000 MG In NS Inj 100 / 100 100 ML @ 200 mls/hr IV.SIG Q24H [facility] Rx#:[id number] Anesthesia Amount 1300 / 1300 Output: Estimated Blood Loss 100 / 100 Urine Amount (Catheter) 300 / 300 1300 / 1300 Indwelling Urethral Catheter 300 / 300 1300 / 1300 Other: Date of Last Bowel Movement 11/21/17 11/21/17 11/21/17 Mental Status Examination Appearance: Appropriate Consciousness: Alert Orientation: x4 Motor Activity: Normal gait Speech: Unremarkable Language: Adequate Fund of Knowledge: Adequate Attention and Concentration: Adequate Memory: Unremarkable Mood: Irritable Affect: Irritable Thought Process & Associations: Intact Thought Content: Appropriate Hallucination Type: None Delusion Type: Paranoid Suicidal Ideation: No Suicidal Plan: No Suicidal Intention: No Homicidal Ideation: No Homicidal Plan: No Homicidal Intention: No Insight: Fair Judgment: Impulsive Assessment and Plan - Plan Plan: Estimated LOS: [] days Psychiatric evaluation the patient presents with increased paranoia, irritability, oppositional behavior, but she was able to provide information for the psychiatric assessment. Patient is fully oriented 3. She knows the recent of her hospitalization. Her wishes to continue treatment and surgery if needed. She denies suicidal and homicidal ideation, she denies visual and auditory hallucinations. There is a patient with psychiatric history of schizoaffective disorder, previous psychiatric hospitalizations, recent hospitalization here in [place] under the care of Dr. Moreno. She has an elevated risk of delirium during this hospitalization given her age, previous psychiatric history and comorbidities. we will restart Haldol 2 mg twice daily p.o. for psychosis. Haldol 2 mg IM/IV every 8 hours as needed aggressive behavior and agitation. Discontinue Benadryl/Xanax given the high risk of worsening cognition and delirium. We will discontinue Geodon 20 mg, there is no indication for 2 antipsychotics at this moment. QTc interval is 411. I will follow-up. Justification for Continued Inpatient Stay: No admission indicated at the moment
[2017-11-24] MEDS: Enoxaparin Inj 30 MG/0.3 ML Syringe SQ SCH (15:04)
[2017-11-25 04:16] LABS: Baso # (Auto) 0.1 th/mm3 (0.0-0.2); Baso % (Auto) 0.5 % (0.0-2.0); Eos # (Auto) 0.2 th/mm3 (0.0-0.4); Eos % (Auto) 1.4 % (0.0-4.0); Hematocrit 36.3 % (35.0-46.0); Hemoglobin 12.1 gm/dL (11.6-15.3); Lymph # (Auto) 1.3 th/mm3 (1.0-4.8); Lymph % (Auto) 11.4 % (9.0-44.0); Mean Corpuscular HGB Conc 33.5 % (32.0-36.0); Mean Corpuscular Hemoglobin 32.5 pg (27.0-34.0); Mean Corpuscular Volume 97.1 fL (80.0-100.0); Mean Platelet Volume 8.1 fL (7.0-11.0); Mono % (Auto) 8.8 % (0.0-8.0); Neut # (Auto) 8.7 th/mm3 (1.8-7.7); Neut % (Auto) 77.9 % (16.0-70.0); Platelet Count 432 th/mm3 (150-450); Red Blood Count 3.74 mil/mm3 (4.00-5.30); Red Cell Distribution Width 13.9 % (11.6-17.2); White Blood Count 11.2 th/mm3 (4.0-11.0)
--- NOTE | 2017-11-25 06:49 | P.PNOP ---
Subjective Interval history: POD 2 s/p left hip hemiarthroplasty resting comfortably Physical Exam Vital signs: Vital Signs 11/24/17 12:00 11/24/17 20:00 11/24/17 22:00 Temperature 98.0 F 98.2 F Pulse Rate 95 H 91 H Respiratory Rate 16 18 17 Blood Pressure 124/60 115/56 L Pulse Oximetry 93 L 94 L 11/25/17 00:00 11/25/17 04:00 11/25/17 04:31 Temperature 97.8 F 98.1 F Pulse Rate 91 H 83 Respiratory Rate 18 18 17 Blood Pressure 159/72 H 168/74 H Pulse Oximetry 94 L 93 L Intake & Output 11/24/17 11/24/17 11/25/17 06:59 18:59 06:59 Intake Total 1200 / 1200 1240 / 1240 200 / 200 Output Total 1300 / 1300 Balance -100 / -100 1240 / 1240 200 / 200 Weight 67.1 kg 67.1 kg Intake: IV 1200 / 1200 1000 / 1000 LR 1000 mL Inj 1,000 ML @ 50 1000 / 1000 mls/hr IV.CONT .Q20H [facility] Rx#: [id number] NS Inj 1,000 ML @ 75 mls/hr IV. 1000 / 1000 CONT .[id number] [facility] Rx#:[id number] Ancef Inj 2,000 MG In NS Inj 80 200 / 200 ML @ 200 mls/hr IV.SIG Q8H [facility] Rx#:[id number] Oral 240 / 240 200 / 200 Output: Urine Amount (Catheter) 1300 / 1300 Indwelling Urethral Catheter 1300 / 1300 Other: # Voids 2 4 Date of Last Bowel Movement 11/21/17 11/21/17 11/21/17 Narrative: LLE: dressings clean and dry. intact. +CKS/ nvi distally - Urinary Catheter Management Indwelling Urethral Catheter Cath placed during this visit: yes, but has since been removed by the nurse Reason for continuing: Decision to DC catheter Insertion date: 11/23/17 Insertion time: 12:52 Removal date: 11/24/17 Removal time: 06:00 Results - Labs CBC & Chem 7: 11/25/17 02:53 11/22/17 12:00 Laboratory Results - last 24 hr 11/25/17 02:53 WBC 11.2 H RBC 3.74 L Hgb 12.1 Hct 36.3 MCV 97.1 MCH 32.5 MCHC 33.5 RDW 13.9 Plt Count 432 MPV 8.1 Neut % (Auto) 77.9 H Lymph % (Auto) 11.4 Mclennan % (Auto) 8.8 H Eos % (Auto) 1.4 Baso % (Auto) 0.5 Neut # (Auto) 8.7 H Lymph # (Auto) 1.3 Mclennan # (Auto) 1.0 H Eos # (Auto) 0.2 Baso # (Auto) 0.1 WBC Differential . Differential Comment Auto diff final Assessment and Plan - Assessment and Plan 1) Left Hip Hemiarthroplasty - POD 2 -WBAt -posterior hip precautions -daily dressing changes with [place] POD 2 -CKS while in bed -DVT prophylaxis -CM for SNF placement -f/u with [facility] or [facility] in 2 weeks [facility] Prescription Drug Monitoring Database has been queried and verified prior to prescribing the controlled substance. Acute pain exception. This patient has normal, predicted, physiological, and time limited response to an adverse mechanical stimulus associated with surgery, trauma, or acute illness as described in my notes. There is a lack of alternative treatment options other than to include the prescribed narcotic treatment for this condition.
[2017-11-25] MEDS: Calcium/Vitamin D 250/125 MG Tablet PO SCH ×3 (08:31→17:18)
[2017-11-25] MEDS: Lisinopril 5 MG Tablet PO SCH (08:31)
[2017-11-25] MEDS: Senna/Docusate Sodium 8.6/50 MG Tablet PO SCH ×2 (08:31→20:00)
[2017-11-25] MEDS: Sod Chloride 0.9% Inj 1,000 ML IV.CONT SCH (08:35)
--- NOTE | 2017-11-25 09:53 | P.PNIM ---
Subjective Interval history: patient found sleep and woken up by me. She stated she has no complaints but she is sleep. When I asked if I can examine her she stated no and got aggressive. when I explained why it was important for me to examine her she continues to say no. She is afebrile. Physical Exam Vital signs: Vital Signs 11/24/17 12:00 11/24/17 20:00 11/24/17 22:00 Temperature 98.0 F 98.2 F Pulse Rate 95 H 91 H Respiratory Rate 16 18 17 Blood Pressure 124/60 115/56 L Pulse Oximetry 93 L 94 L 11/25/17 00:00 11/25/17 04:00 11/25/17 04:31 Temperature 97.8 F 98.1 F Pulse Rate 91 H 83 Respiratory Rate 18 18 17 Blood Pressure 159/72 H 168/74 H Pulse Oximetry 94 L 93 L 11/25/17 06:00 11/25/17 08:00 Temperature 97.9 F Pulse Rate 78 Respiratory Rate 18 17 Blood Pressure 146/64 H Pulse Oximetry 91 L Intake & Output 11/24/17 11/25/17 11/25/17 18:59 06:59 18:59 Intake Total 1240 / 1240 200 / 200 Balance 1240 / 1240 200 / 200 Weight 67.1 kg Intake: IV 1000 / 1000 LR 1000 mL Inj 1,000 ML @ 50 1000 / 1000 mls/hr IV.CONT .Q20H DOMONIQUE Rx#: [id number] Oral 240 / 240 200 / 200 Other: # Voids 2 4 Date of Last Bowel Movement 11/21/17 11/21/17 - Constitutional no acute distress - Routine HEENT Exam Head: Present: normocephalic, atraumatic (patient refuse examination. She is under blankets. ) - Urinary Catheter Management Indwelling Urethral Catheter Cath placed during this visit: yes, but has since been removed by the nurse Reason for continuing: Decision to DC catheter Insertion date: 11/23/17 Insertion time: 12:52 Removal date: 11/24/17 Removal time: 06:00 Results - Labs CBC & Chem 7: 11/25/17 02:53 11/22/17 12:00 Laboratory Results - last 24 hr 11/25/17 02:53 WBC 11.2 H RBC 3.74 L Hgb 12.1 Hct 36.3 MCV 97.1 MCH 32.5 MCHC 33.5 RDW 13.9 Plt Count 432 MPV 8.1 Neut % (Auto) 77.9 H Lymph % (Auto) 11.4 Toole % (Auto) 8.8 H Eos % (Auto) 1.4 Baso % (Auto) 0.5 Neut # (Auto) 8.7 H Lymph # (Auto) 1.3 [place]ole # (Auto) 1.0 H Eos # (Auto) 0.2 Baso # (Auto) 0.1 WBC Differential . Differential Comment Auto diff final Microbiology 11/22/17 12:40 Clean Catch Urine Urine Culture - Final Enterococcus faecalis Assessment and Plan - Assessment (1) Closed hip fracture Code(s): S72.009A - Fracture of unspecified part of neck of unspecified femur, initial encounter for closed fracture Status: Acute Plan: s/p left hip cemented hemiarthroplasty on 11/23/2017. management per Ortho. (2) Schizophrenia Code(s): F20.9 - Schizophrenia, unspecified Status: Acute Plan: increase paranoia while hospitalized so Psychiatrist consulted appreciate assistance. patient was complaint with nurse today but will not allow me to exam. she is very selective on who she wants to cooperate with. (3) UTI (urinary tract infection) Code(s): N39.0 - Urinary tract infection, site not specified Status: Acute Plan: grew enterococcus faecalis pansensitive. will switch to oral medication. (4) Confusion Code(s): R41.0 - Disorientation, unspecified Status: Acute Plan: patient has underlying psych condition. maybe due to UTI. unsure baseline. prior provider did not c/o confusion but per staff patient was sedated yesterday. (5) Hypertension Code(s): I10 - Essential (primary) hypertension Status: Acute Plan: controlled. continue with home medication. - Plan Discharge Planning: once cleared by ortho can be discharge. (1) Closed hip fracture Qualifiers: Encounter type: initial encounter Laterality: left Qualified Code(s): S72.002A - Fracture of unspecified part of neck of left femur, initial encounter for closed fracture
--- NOTE | 2017-11-25 13:27 | P.PNPSY ---
Subjective Remarks: The patient was seen today for psychiatric reevaluation, the patient is calm her , more cooperative today. Continues to be irritable and oppositional, but she was able to answer my questions. She reports good mood, the patient is fully oriented 3, denies depression, denies anxiety, denies rojas and psychosis. She denies suicidal and homicidal ideation. She denies visual and auditory hallucinations at the moment. The patient has been compliant with her medications, no significant side effects reported Mental Status Examination Appearance: Appropriate Consciousness: Alert Orientation: x4 Motor Activity: Normal gait Speech: Unremarkable Language: Adequate Fund of Knowledge: Adequate Attention and Concentration: Adequate Memory: Unremarkable Mood: Irritable Affect: Irritable Thought Process & Associations: Intact Thought Content: Appropriate Hallucination Type: None Delusion Type: Paranoid Suicidal Ideation: No Suicidal Plan: No Suicidal Intention: No Homicidal Ideation: No Homicidal Plan: No Homicidal Intention: No Insight: Fair Judgment: Impulsive Assessment and Plan - Assessment (1) Schizophrenia Code(s): F20.9 - Schizophrenia, unspecified Status: Acute - Plan Plan: the patient seems to be doing better today. He has a brighter mood and affect , denies depression, denies anxiety, denies rojas and psychosis. Fully oriented 3. Willing to take her medication and follow medical recommendations. Continue current psychotropic regimen. Justification for Continued Inpatient Stay: no admission indicated
[2017-11-25] MEDS: Enoxaparin Inj 30 MG/0.3 ML Syringe SQ SCH ×2 (14:53→17:18)
[2017-11-26 00:31] VITALS: TEMP 98.7
[2017-11-26] MEDS: Sod Chloride 0.9% Inj 1,000 ML IV.CONT SCH (02:23)
--- NOTE | 2017-11-26 06:06 | P.PNOP ---
Subjective Interval history: POd 3 s/p left hip hemiarthroplasty resting comfortably. no changes Physical Exam Vital signs: Vital Signs 11/25/17 08:00 11/25/17 11:57 11/25/17 20:00 Temperature 97.9 F 97.6 F Pulse Rate 78 77 88 Respiratory Rate 18 Blood Pressure 146/64 H 144/66 H 107/58 L Pulse Oximetry 91 L 97 92 L 11/25/17 22:00 11/26/17 00:00 11/26/17 00:47 Temperature 98.7 F Pulse Rate 83 Respiratory Rate 18 Blood Pressure 148/70 H Pulse Oximetry 93 L Intake & Output 11/25/17 11/25/17 11/26/17 06:59 18:59 06:59 Intake Total 200 / 200 500 / 500 Balance 200 / 200 500 / 500 Weight 67.1 kg 67.1 kg Intake: Oral 200 / 200 500 / 500 Other: # Voids 4 2 4 Date of Last Bowel Movement 11/21/17 11/21/17 Narrative: LLE: dressings clean and dry. intact. +CKS/ nvi distally - Urinary Catheter Management Indwelling Urethral Catheter Cath placed during this visit: yes, but has since been removed by the nurse Reason for continuing: Decision to DC catheter Insertion date: 11/23/17 Insertion time: 12:52 Removal date: 11/24/17 Removal time: 06:00 Results - Labs CBC & Chem 7: 11/25/17 02:53 11/22/17 12:00 Microbiology 11/22/17 12:40 Clean Catch Urine Urine Culture - Final Enterococcus faecalis Assessment and Plan - Assessment and Plan 1) Left Hip Hemiarthroplasty - POD 3 -WBAt -posterior hip precautions -daily dressing changes with [place] POD 2 -CKS while in bed -DVT prophylaxis -CM for SNF placement -ortho cleared for DC to SNF -f/u with [facility] or [facility] in 2 weeks [facility] Prescription Drug Monitoring Database has been queried and verified prior to prescribing the controlled substance. Acute pain exception. This patient has normal, predicted, physiological, and time limited response to an adverse mechanical stimulus associated with surgery, trauma, or acute illness as described in my notes. There is a lack of alternative treatment options other than to include the prescribed narcotic treatment for this condition.
[2017-11-26] MEDS ORDERED: Amoxicillin/Clavulanate 875/125 MG Tablet PO SCH (09:00)
[2017-11-26] MEDS: Calcium/Vitamin D 250/125 MG Tablet PO SCH (09:04)
[2017-11-26] MEDS: Lisinopril 5 MG Tablet PO SCH (09:04)
[2017-11-26] MEDS: Senna/Docusate Sodium 8.6/50 MG Tablet PO SCH (09:04)
[2017-11-26] MEDS ORDERED: Polyethylene Glycol 3350 17 GM Packet PO SCH (10:00)
[2017-11-26 12:25] VITALS: BP 143/72; PULSE 79; RESP 17; O2SAT 97
--- NOTE | 2017-11-26 17:30 | P.DS ---
Date of admission: 11/22/17 13:11 Primary care physician: UNKNOWN Attending physician on discharge: Rachel Leija Anticipated date of discharge: 11/26/17 Brief History from admission: patient is a 82 y/o female with history of hypertension and schizophrenia who was brought to ER with left hip pain. patient is not a good historian. but she says that she had a fall about a week ago. apparently she hasn't been able to walk the past couple of days and the pain to the left hip has been getting worse. she had XR done which showed left hip fracture for which she was brought to ER. at the time of my evaluation she was fairly comfortable. DS: Diagnosis - Discharge Diagnosis (1) Closed hip fracture Status: Acute (2) Schizophrenia Status: Acute (3) UTI (urinary tract infection) Status: Acute (4) Confusion Status: Acute (5) Hypertension Status: Acute DS: Medications - Discharge Medications Prescriptions: alprazolam [Xanax] 0.5 mg PO BID PRN #20 tab PRN Reason: Agitation amoxicillin-pot clavulanate 1 tab PO Q12HR 5 Days tab haloperidol 2 mg PO BID #60 tab hydrocodone-acetaminophen [[place]] 1 tab PO Q4H #40 tab rivaroxaban [Xarelto] 10 mg PO DAILY #14 tab DS: Summary Hospital Course: Patient had x-ray of the hip which showed fracture of unspecified part of neck of unspecified femur. Orthopedic surgeon Dr. Villegas consulted in which patient had left hip cemented hemiarthroplasty on 11/23/2017. Patient developed delirium after surgery which was secondary to her schizophrenia. Psychiatrist was consulted in which he diagnosed patient with paranoid schizophrenia. Her Haldol dose was adjusted in which her schizophrenia improved. Initially she did not allow me to examine her on the day of discharge she is very pleasant and allow me to examine. Patient also found to have UTI that grew enterococcus faecalis that was pansensitive so she was placed on Augmentin. Patient did well at the time of discharge in which she was following commands and was very pleasant to staff. - Time Spent with Patient Total time spent providing and/or coordinating discharge services: Greater than 30 minutes - Quality: VTE Deep Vein Thrombosis/Pulmonary Embolism Present on Admission: No Exam Vital signs: Vital Signs 11/25/17 20:00 11/25/17 22:00 11/26/17 00:00 Temperature 98.7 F Pulse Rate 88 83 Respiratory Rate 18 18 18 Blood Pressure 107/58 L 148/70 H Pulse Oximetry 92 L 93 L 11/26/17 00:47 11/26/17 12:00 Temperature 98.7 F Pulse Rate 79 Respiratory Rate 18 17 Blood Pressure 143/72 H Pulse Oximetry 97 Intake & Output 11/25/17 11/26/17 11/26/17 18:59 06:59 18:59 Intake Total 500 / 500 Balance 500 / 500 Weight 67.1 kg Intake: Oral 500 / 500 Other: # Voids 2 4 Date of Last Bowel Movement 11/21/17 - Constitutional no acute distress - Routine HEENT Exam Head: Present: normocephalic, atraumatic - Routine Respiratory Exam Present: CTA bilaterally - Routine Cardiovascular Exam Present: RRR, S1, S2 Comments: No rubs murmurs or gallops. - Routine Abdominal Exam Present: soft, normoactive bowel sounds Comments: Negative tenderness to palpation. No peritoneal signs. - Routine Extremities Exam Comments: Negative for any lower extremity edema. 5 out of 5 upper and lower extremity strength except for her left lower extremity. 4 out of 5 of left lower extremity secondary to hip repair. Sensation grossly intact. Results Procedures completed during hospitalization: left hip cemented hemiarthroplasty on 11/23/2017. - Impressions ITS Impressions Chest X-Ray 11/22/17 11:48 CONCLUSION: No acute findings. Hip X-Ray 11/23/17 00:00 CONCLUSION: 1. Left subcapital fracture has been repaired with a total left hip arthroplasty. 2. 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 3. Injection granulomata in the buttocks bilaterally. Discharge Plan - Discharge Disposition Patient Disposition: 03 Discharge to SNF - Discharge Condition Condition: Stable - Discharge Order Discharge Orders: Discharge Order (Routine); Ordered 11/26/17 Ordered By: Rachel Leija Orthopedic Clear for Discharge (Routine); Ordered 11/26/17 Ordered By: Hayden Lee - Physicians Team Primary Care Provider: UNKNOWN, Attending Provider: Rachel Leija Other Providers: Luis Cano MD ; [employer] ; [facility], [place] ; Corey Bansk MD ; Salty Villegas MD
== END 2017-11-26 13:15 ==
LOC: NEPE 11:35 → NEDA 13:11 → N06 21:49
PROVIDERS: ADMIT Family Medicine; ATTEND Family Medicine